=== PATIENT | female | born 1955 | race African-American/Black ===

== ENCOUNTER 2016-10-04 07:08 | Inpatient (IN) | payer BC ==
[2016-09-30 12:30] VITALS: BMI 43.5
--- NOTE | 2016-10-03 10:10 | HP ---
Satellite [facility] - Chief Complaint Chief Complaint: right knee pain - Past Medical History Allergies/Adverse Reactions: Allergies Allergy/AdvReac Type Severity Reaction Status Date / Time No Known Allergies Allergy Verified 09/30/16 12:22 - Current Medications Current Medications: Medication Instructions Recorded Valsartan [Diovan] 320 mg PO HS 04/17/12 Naproxen [Naprosyn -] 500 mg PO BID #20 tablet 08/24/16 [facility] Physical Exam - Physical Examination General Appearance: Well Nourished, Well Developed, Alert & Oriented x3 ENT: Clear Lung: Normal air movement Heart: Regular rate & rhythm Extremities: Other (right knee- + swelling, + ttp, decr rom, nvi xrays show severe tricompartmental djd) Neurological: Intact, Alert, Oriented Satellite Impression/Plan - Impression/Plan Impression: right knee djd Operative Procedure: right tkr Date to be Performed: 10/04/16
[2016-10-04] MEDS ORDERED: VANCOMYCIN 1,000 MG VIAL (RESTRICTED TO ID ONLY) ONE (07:11)
[2016-10-04] MEDS ORDERED: ceFAZolin SODIUM 1 GM VIAL ONE ×2 (07:11→08:34)
[2016-10-04] MEDS ORDERED: TRANEXAMIC ACID 1000 MG/10 ML VIAL IVPUSH ONE (07:28)
[2016-10-04] MEDS ORDERED: oxyCODONE HCL 10 MG SUSTAINED ACTING TABLET PO ONE (07:28)
[2016-10-04] MEDS ORDERED: GABAPENTIN 300 MG CAPSULE (FP) PO ONE (07:28)
[2016-10-04] MEDS ORDERED: CEFAZOLIN 2 GM in DEXTROSE 5%-WATER - 50 ML IVPB ONE (07:28)
[2016-10-04] MEDS ORDERED: CELECOXIB 200 MG CAPSULE PO ONE (07:28)
[2016-10-04] MEDS ORDERED: ROPIVACAINE HCL 0.5% 30ML VIAL ONE (08:16)
[2016-10-04] MEDS ORDERED: MIDAZOLAM HCL 2 MG/2 ML SINGLE DOSE VIAL ONE ×2 (08:16→12:03)
[2016-10-04] MEDS ORDERED: SODIUM CHLORIDE 0.9% P/F 10 ML VIAL IJ ONE (08:16)
[2016-10-04] MEDS ORDERED: DEXAMETHASONE SOD PHOSPHATE/PF 10 MG/ML SDV ONE (08:16)
[2016-10-04] MEDS ORDERED: LIDOCAINE 1% P/F 10 MG/ML VIAL ONE (08:18)
[2016-10-04] MEDS ORDERED: PROPOFOL 20 ML ONE ×3 (08:34)
[2016-10-04] MEDS ORDERED: BUPIVACAINE HCL/PF 0.5% (5MG/ML) 10 ML VIAL ONE (08:40)
[2016-10-04] MEDS ORDERED: ePHEDrine SULFATE 50 MG/1 ML AMPULE ONE (11:07)
[2016-10-04] MEDS ORDERED: ROPIVACAINE 0.2% 400ML 400 ML ML NR ONE (11:35)
[2016-10-04] MEDS ORDERED: PROMETHAZINE HCL 25 MG/1 ML VIAL IVPUSH PRN (11:35)
[2016-10-04] MEDS ORDERED: ONDANSETRON 4 MG/2 ML VIAL IVPUSH PRN (11:47)
[2016-10-04] MEDS ORDERED: ONDANSETRON 4 MG/2 ML VIAL ONE (12:03)
[2016-10-04] MEDS ORDERED: ONDANSETRON 4 MG/2 ML VIAL IVPB PRN (13:31)
[2016-10-04] MEDS ORDERED: MAG HYDROX/AL HYDROX/SIMETH 30 ML UNIT-DOSE CUP PO PRN (13:31)
[2016-10-04] MEDS ORDERED: MAGNESIUM HYDROX 2400MG/30ML ORAL SUSPENSION 30 ML CUP PO PRN (13:31)
--- NOTE | 2016-10-04 13:34 | OP ---
Operative Note - Note: Operative Date: 10/04/16 (mo) Pre-Operative Diagnosis: right knee djd Operation: right makoplsty tkr Post-Operative Diagnosis: Same as Pre-op Surgeon: Hay Bowman Assistant Analyst: Pantera Kapadia Anesthesiologist/MACHINE GREASER: Elizabeth Pena Anesthesia: Spinal, Local Specimens Removed: bone fragments Estimated Blood Loss (mls): 50 (tourniquet) Operative Report Dictated: Yes
[2016-10-04] MEDS ORDERED: LACTATED RINGERS SOLUTION 1,000 ML IV SCH (13:45)
[2016-10-04] MEDS: ACETAMINOPHEN 1000 MG/100 ML VIAL (NON FORMULARY) IVPB ONE ×2 (14:10→15:17)
[2016-10-04] MEDS: LACTATED RINGERS SOLUTION 1,000 ML IV SCH (15:17)
[2016-10-04] MEDS: oxyCODONE HCL 5 MG TABLET PO PRN ×2 (15:59→22:11)
[2016-10-04] MEDS: CEFAZOLIN 2 GM/D5W 50 ML IVPB SCH (18:14)
[2016-10-04] MEDS: GABAPENTIN 300 MG CAPSULE (FP) PO SCH (22:11)
[2016-10-04] MEDS: VALSARTAN 160 MG TABLET (UD) PO SCH (22:11)
[2016-10-04] MEDS: SENNOSIDES/DOCUSATE COMBO (SENNA PLUS) TABLET (UD) PO SCH (22:11)
[2016-10-04] MEDS: oxyCODONE HCL 10 MG SUSTAINED ACTING TABLET PO SCH (22:12)
[2016-10-05] MEDS: CEFAZOLIN 2 GM/D5W 50 ML IVPB SCH (03:19)
[2016-10-05] MEDS: oxyCODONE HCL 5 MG TABLET PO PRN ×3 (06:48→18:42)
--- NOTE | 2016-10-05 07:59 | PN ---
Progress Note (short form) - Note Progress Note: Ortho Pt seen and examined s/p right silvio tkr pod #1 Selected Entries 10/05/16 05:56 Temperature 98.6 F Pulse Rate 54 L Respiratory 18 Rate Blood Pressure 106/53 dressing c/d/i, calf soft, nt rom0-50, nvi cbc pending a/p PT dvt ppx pain control d/c home tomorrow if stable
--- NOTE | 2016-10-05 08:27 | OP ---
DATE OF OPERATION: 10/04/2016 PREOPERATIVE DIAGNOSIS: Degenerative joint disease, right knee. POSTOPERATIVE DIAGNOSIS: Degenerative joint disease, right knee. PROCEDURE: Right total knee replacement with robotic-assisted navigation (MAKOplasty). SURGICAL ATTENDING: aHy Bowman MD SUBSTATION ELECTRICIAN: MARCO Chatman ANESTHESIA: Spinal and regional. CLOSURE: A 3 femur, 4 tibia, an 11 TS insert, a 32 patella, No. 1 Vicryl, fascia, 0 and 2-0 for subcutaneous, and 3-0 Monocryl subcuticular with skin glue, 4-0 undyed Vicryl for pin sites. ESTIMATED BLOOD LOSS: Negligible. TOURNIQUET TIME: Approximately 90 minutes. COMPLICATIONS: None. CONDITION: To recovery room in stable condition. DESCRIPTION OF OPERATIVE PROCEDURE: Patient taken to the operating room on October 04, 2016. Spinal and regional anesthesia was administered by the anesthesiologist. IV Kefzol and TXA were administered prophylactically prior to the case. Right lower extremity was prepped and draped in the usual sterile fashion. Leg was exsanguinated with an Esmarch bandage. Tourniquet was inflated to 275 mmHg. A 12- to 15-cm longitudinal incision was made over the knee. Sharp dissection was carried down to the level of the extensor mechanism. Sufficient fluoroscopy utilized to perform the procedure. Medial parapatellar thigh arthrotomy was then performed. The patella was everted, and the knee was flexed up. Two pins were placed through stab incisions in the femur proximal to the incision and 2 distal to the incision in the tibia. To these pins, the arrays for the robot were applied. The knee was then registered with the navigation device with the center of rotation, medial and lateral , and multiple sites on both the femur and the tibia. The osteophytes were then removed circumferentially on the femur and the tibia. Then, tensioning was used in flexion and extension to optimize the virtual position of the components on the femur. The robot was then brought into the field and was registered. The robot was then used to cut the tibia at the appropriate level and then all the cuts on the femur. The box was then cut using the box machine operator for a No. 3 femur. Tensioning in flexion and extension revealed ideal tension with an 11-mm insert. The trial components were removed. The optimum external rotation of the tibial component was confirmed by using the green probe and the navigation device and was marked on the tibia. The keyhole and the central drill hole were then made on the tibia. Trial components were removed. The knee was thoroughly irrigated with antibiotic irrigation. The real components were then cemented in using the modern generation cement techniques and antibiotic cement. The knee was thoroughly inspected to remove all excess cement. After doing so, the TS implant was then clipped into place. Range of motion was from full flexion to full extension with excellent tracking of the patella throughout and good tensioning with varus/valgus stress throughout. The knee was thoroughly irrigated with antibiotic irrigation. Vancomycin powder was placed into the knee. The medial parapatellar arthrotomy was then closed using No. 1 Vicryl, 0 and 2-0 for subcutaneous, and 3-0 Monocryl subcuticular with skin glue, 4-0 undyed Vicryl for pin sites. Sterile pressure dressing of Aquasol variety was applied. The tourniquet was deflated. Total tourniquet time was approximately 90 minutes. No complications. Girma [id number]
[2016-10-05 08:32] LABS: MCH 30.2 pg (25.7-33.7); MEAN CELL VOLUME 91.5 fl (80-96); MEAN PLT VOLUME 8.9 fl (7.5-11.1); PLATELET COUNT 232 K/MM3 (134-434); RDW 13.9 % (11.6-15.6); WHITE BLOOD COUNT 10.4 K/mm3 (4.0-10.0)
[2016-10-05 08:45] LABS: CALCIUM 9.2 mg/dl (8.4-10.2); CREATININE 0.8 mg/dl (0.6-1.3)
[2016-10-05] MEDS: PANTOPRAZOLE 40 MG TABLET (FP) PO SCH (09:02)
[2016-10-05] MEDS: MULTIVITAMINS (DAILY MVI) TABLET (FP) PO SCH (09:03)
[2016-10-05] MEDS: GABAPENTIN 300 MG CAPSULE (FP) PO SCH ×2 (09:03→21:18)
[2016-10-05] MEDS: ASPIRIN 325 MG TABLET PO SCH (09:03)
[2016-10-05] MEDS: SENNOSIDES/DOCUSATE COMBO (SENNA PLUS) TABLET (UD) PO SCH ×2 (09:03→21:18)
[2016-10-05] MEDS: oxyCODONE HCL 10 MG SUSTAINED ACTING TABLET PO SCH ×2 (09:03→21:18)
--- NOTE | 2016-10-05 09:34 | PN ---
Progress Note (short form) - Note Progress Note: 61F POD1 s/p R TKR under spinal anesthetic with cont. adductor canal catheter doing well. Pt reports pain is well controlled, AVSS, reports no anesthetic complications. Sensory and motor function intact in both extremites, catheter site clean.
[2016-10-05 09:36] LABS: HIV 1 & 2 AB NEGATIVE; HIV 1 AGp24 NEGATIVE
[2016-10-05] MEDS: LACTATED RINGERS SOLUTION 1,000 ML IV SCH (13:40)
[2016-10-05] MEDS: VALSARTAN 160 MG TABLET (UD) PO SCH (21:18)
[2016-10-05] MEDS ORDERED: ACETAMINOPHEN 325 MG TABLET (FP) ONE (21:43)
[2016-10-06 05:41] VITALS: BP 114/50; PULSE 67; TEMP 99.4
[2016-10-06 07:50] LABS: MCH 29.5 pg (25.7-33.7); MCHC 32.7 g/dl (32.0-36.0); MEAN PLT VOLUME 8.4 fl (7.5-11.1); PLATELET COUNT 228 K/MM3 (134-434); WHITE BLOOD COUNT 12.1 K/mm3 (4.0-10.0)
--- NOTE | 2016-10-06 08:07 | PN ---
Progress Note (short form) - Note Progress Note: Ortho Pt seen and examined s/p right silvio tkr pod #2 Selected Entries 10/06/16 05:40 Temperature 99.4 F Pulse Rate 67 Respiratory 17 Rate Blood Pressure 114/50 Laboratory Tests 10/06/16 07:18 WBC 12.1 H Hgb 10.9 Hct 33.4 Plt Count 228 dressing c/d/i, calf soft, nt rom0-50, nvi cbc pending a/p PT dvt ppx pain control d/c home today f/u in 1 week
--- NOTE | 2016-10-06 08:08 | DS ---
Physical Examination Vital Signs: Vital Signs Temperature 99.4 F 10/06/16 05:40 Pulse Rate 67 10/06/16 05:40 Respiratory Rate 17 10/06/16 05:40 Blood Pressure 114/50 10/06/16 05:40 O2 Sat by Pulse Oximetry (%) 99 10/05/16 22:25 Labs: CBC, BMP 10/06/16 07:18 10/05/16 07:00 Discharge Summary Reason For Visit: RIGHT KNEE OSTEOARTHRITIS Procedures: Principal: s/p right silvio tkr Hospital Course: admitted for elective right silvio tkr, uneventful post-op, stable for d/c Condition: Good - Instructions Diet, Activity, Other Instructions: Post-op Instructions-Total Knee Replacement Call the office for a follow-up appointment in 1 week - [phone] Aspirin 325mg daily for 6 weeks. Pain medication was sent into your pharmacy. Apply Graduated Compression Stockings (TEDs) to both lower extremities- remove daily for hygiene ONLY Apply Sequential Compression Device (SCDs) to both Lower extremities remove for PT and hygiene ONLY Apply cold packs to affected area for 15 minutes every 2 hours. Physical Therapist will come to your home for the first 5 days. You will be set up with outpatient PT at your first post-operative visit. Patient may ambulate as tolerated-encourage self care (at least every 2-3 hours while awake) with walker or cane Maintain Aquacel (waterproof) dressing to operative wound (will be removed by surgeon at first office visit) Shower with Aquacel dressing in place-if Aquacel integrity compromised, remove and apply dry sterile dressing and notify Orthopedist. DO NOT SHOWER unless Orthopedists approves without Aquacel dressing CONTACT THE OFFICE FOR ANY CHANGE IN YOUR CONDITION (for example-fever greater than 102 degrees,excessive bleeding from operative site, purulent drainage, severe swelling or pain) GO TO THE EMERGENCY ROOM IF THERE IS A MEDICAL EMERGENCY Knee Precautions: * Keep a rolled towel under affected heel while in bed or chair (to keep knee in extension) * Keep affected leg elevated except during mealtimes * DO NOT PLACE PILLOW UNDER AFFECTED KNEE * If you have any questions, please do not hesitate to call the office - . Referrals: Hay Bowman MD [Staff Physician] - Disposition: VNS/HOME HEALTH CARE - Home Medications Comprehensive Discharge Medication List: Ambulatory Orders Valsartan [Diovan] 320 mg PO HS 04/17/12 Naproxen [Naprosyn -] 500 mg PO BID #20 tablet 08/24/16 Aspirin [ASA -] 325 mg PO DAILY@0800 tablet 10/04/16 Oxycodone HCl/Acetaminophen [Percocet 5-325 mg Tablet -] 1 - 2 tab PO Q6H #50 tab MDD 8 10/04/16
[2016-10-06] MEDS: ASPIRIN 325 MG TABLET PO SCH (08:14)
[2016-10-06] MEDS: oxyCODONE HCL 5 MG TABLET PO PRN (08:14)
[2016-10-06] MEDS: MULTIVITAMINS (DAILY MVI) TABLET (FP) PO SCH (09:18)
[2016-10-06] MEDS: PANTOPRAZOLE 40 MG TABLET (FP) PO SCH (09:18)
[2016-10-06] MEDS: GABAPENTIN 300 MG CAPSULE (FP) PO SCH (09:18)
[2016-10-06] MEDS: SENNOSIDES/DOCUSATE COMBO (SENNA PLUS) TABLET (UD) PO SCH (09:18)
[2016-10-06] MEDS: oxyCODONE HCL 10 MG SUSTAINED ACTING TABLET PO SCH (09:19)
--- NOTE | 2016-10-06 11:22 | PN ---
Progress Note (short form) - Note Progress Note: 61 F POD2 s/p R TKR under spinal anesthetic doing well. Pt states pain is well controlled with CACB, selective tibial and adjunctive medication. AVSS, pt reports no anesthetic complications. Cont. adductor canal catheter d/c'd, tip intact. Site clean and dry. Sensory and motor function intact in both lower extremities.
--- NOTE | 2016-10-06 12:15 | PATH ---
Surgical Pathology Report Patient Name: ISABELA COMER Med. Rec. #: [id number] /Age/Gender: 1955 (Age: 61) / F Account: [id number] Location: [facility] MED-SURG Taken: 10/04/2016 Received: 10/04/2016 Reported: 10/06/2016 Physicians: Hay Bowman M.D. Specimen(s) Received RIGHT KNEE BONES Clinical History Right knee osteoarthritis Final Diagnosis BONE AND SOFT TISSUE, RIGHT KNEE, REPLACEMENT: DEGENERATIVE JOINT DISEASE. Electronically Signed Jerrod Navarro M.D. Gross Description Received in formalin, labeled "right knee bones," is a 10.0 x 9.5 x 2.0 cm aggregate of escobedo, irregular portions of bone and soft tissue. The tibial plateau measures 7.2 x 5.3 x 1.5 cm. There is a 2.3 cm in greatest dimension area of eburnation present. The remaining articular surfaces are escobedo-yellow and diffusely granular. The underlying irregular bone is yellow and hard. Broker Associate sections are submitted in one cassette, following decalcification. 10/05/201610/05/2016
== END 2016-10-06 13:12 | disposition home health service (06) | DRG 470 ==
LOC: FM/S 07:08
PROVIDERS: ADMIT Orthopaedic Surgery; ATTEND Orthopaedic Surgery
PROC: 8E0Y0CZ Robotic Assisted Procedure of Lower Extremity, Open Approach (ICD-10-PCS; 2016-10-04)
PROC: 0SRC0J9 Replacement of Right Knee Joint with Synthetic Substitute, Cemented, Open Approach (ICD-10-PCS; principal; 2016-10-04 09:00)
DX: M17.11 Unilateral primary osteoarthritis, right knee (principal); I10 Essential (primary) hypertension
CPT/HCPCS: 36415; 73560-TC-RT; 80048; 85027; 86803; 87389; 88305-TC; 88311-TC; 94010; 94760; 97116-GP; 97162-PG

== ENCOUNTER 2016-11-19 19:10 | Emergency (ER) | payer BC ==
[2016-11-19 19:39] VITALS: BP 115/60; PULSE 75; TEMP 98.2; BMI 41.9
--- NOTE | 2016-11-19 20:24 | PDOC ---
History of Present Illness - General Chief Complaint: Pain Stated Complaint: BURNING SENSATION BOTH FEET/PAIN Time Seen by Provider: 11/19/16 19:51 History Source: Patient Exam Limitations: No Limitations - History of Present Illness Initial Comments: 11/19/16 20:07 61yo Female patient w/ PmHx: HTN and Left knee replacement presents to ED c/o bilateral foot burning sensation. Patient reports symptoms began a couple days after knee surgery approx. Oct 04. Patient has been going to physical therapy and made them aware but no actions taken per patient. She denies hx: DM, Peripheral neuropathy. Patient denies CP, Abd pain, Back pain, n/v/d, fever, cough, congestion, diff breathing, or any other complaints at this time. Severity: Yes: moderate Lower Extremity Pain Location: bilateral: foot Method of Injury: No: unknown, assault, burn, direct blow, fell, incised, motor vehicle accident, sports injury, twisted, other Modifying Factors: improves with: pain medication Lower Ext. Injury Location - Specific Injury Location Foot: bilateral foot no evidence of injury, bilateral foot normal inspection, bilateral foot normal range of motion, bilateral foot pain Extremity Pain Location - Extremity Pain Location Extremity Pain Locations: bilateral: foot Past History - Travel Traveled outside of the country in the last 30 days: No Close contact w/someone who was outside of country & ill: No - Past Medical History Allergies/Adverse Reactions: Allergies Allergy/AdvReac Type Severity Reaction Status Date / Time No Known Allergies Allergy Verified 11/19/16 19:34 Home Medications: Ambulatory Orders Valsartan [Diovan] 320 mg PO HS 04/17/12 Aspirin [ASA -] 325 mg PO DAILY@0800 tablet 10/04/16 Gabapentin 300 mg PO ASDIR #32 cap 11/20/16 Oxycodone HCl/Acetaminophen [Percocet 5-325 mg Tablet] 1 tab PO Q6H PRN #20 tablet MDD 4 TAB 11/20/16 Anemia: No Asthma: No Cancer: No Cardiac Disorders: No CVA: No COPD: No CHF: No Dementia: No Diabetes: No GI Disorders: No Disorders: No HTN: Yes Hypercholesterolemia: No Liver Disease: No Seizures: No Thyroid Disease: No - Surgical History Abdominal Surgery: No Appendectomy: No Cardiac Surgery: No Cholecystectomy: No Lung Surgery: No Neurologic Surgery: No - Immunization History Td Vaccination: No Immunization Up to Date: No - Psycho/Social/Smoking Cessation Hx Anxiety: No Suicidal Ideation: No Smoking Status: No Smoking History: Never smoked Have you smoked in the past 12 months: No Number of Cigarettes Smoked Daily: 0 Information on smoking cessation initiated: No Hx Alcohol Use: No Drug/Substance Use Hx: No Substance Use Type: None Hx Substance Use Treatment: No Review of Systems - Review of Systems Able to Perform ROS?: Yes Is the patient limited Romansh proficient: No Constitutional: No: Chills, Fever Integumentary: No: Erythema, Rash Neurological: Yes: Other (Burning Sensation) All Other Systems: Reviewed and Negative *Physical Exam - Vital Signs Last Vital Signs Temp Pulse Resp BP Pulse Ox 98.2 F 75 14 115/60 97 11/19/16 19:35 11/19/16 19:35 11/19/16 19:35 11/19/16 19:35 11/19/16 19:35 - Physical Exam General Appearance: Yes: Nourished, Appropriately Dressed. No: Apparent Distress, Mild Distress, Moderate Distress, Severe Distress Neck: positive: Trachea midline, Supple. negative: Lymphadenopathy (R), Lymphadenopathy (L) Respiratory/Chest: positive: Lungs Clear, Normal Breath Sounds. negative: Respiratory Distress, Accessory Muscle Use, Labored Respiration, Rapid RR Cardiovascular: positive: Regular Rhythm, Regular Rate. negative: Edema, JVD, Murmur Gastrointestinal/Abdominal: positive: Normal Bowel Sounds, Soft Musculoskeletal: positive: Normal Inspection. negative: CVA Tenderness Extremity: positive: Normal Capillary Refill, Normal Inspection, Normal Range of Motion Integumentary: positive: Normal Color, Dry, Warm. negative: Erythema, Petechiae , Rash, Swelling, Bruising Neurologic: positive: bathroom tiling professional II-XII NML intact, Fully Oriented, Alert, Normal Mood/ Affect, Normal Response, Motor Strength 5/5 ED Treatment Course - LABORATORY CBC & Chemistry Diagram: 11/19/16 21:15 - RADIOLOGY Radiology Studies Ordered: Category Date Time Status DUPLEX VASCUL US-1 LEG [US] Stat Ultrasound 11/19/16 20:04 Ordered *DC/Admit/Observation/Transfer Diagnosis at time of Disposition: Neuropathic pain of both feet - Discharge Dispostion Disposition: HOME Condition at time of disposition: Stable Admit: No - Prescriptions Prescriptions: Gabapentin 300 mg PO ASDIR #32 cap Oxycodone HCl/Acetaminophen [Percocet 5-325 mg Tablet] 1 tab PO Q6H PRN #20 tablet MDD 4 TAB PRN Reason: Severe Pain - Referrals Referrals: Magdalene Vela MD [Staff Physician] - - Patient Instructions Printed Discharge Instructions: Neuropathic Pain Additional Instructions: FOLLOW UP WITH DR. HIGHTOWER (NEUROLOGY) REGARDING TODAY'S VISIT. CALL TO SCHEDULE APPOINTMENT. TAKE MEDICATIONS PRESCRIBED. DO NOT DRIVE, DRINK ALCOHOL, OR OPERATE HEAVY MACHINERY WHILE TAKING PERCOCET. DRINK PLENTY OF WATER. Print Language: NEPALI
[2016-11-19 20:39] LABS: URINE APPEARANCE SLCLOUDY; URINE BILIRUBIN NEGATIVE (NEGATIVE); URINE BLOOD NEGATIVE (NEGATIVE); URINE COLOR YELLOW; URINE GLUCOSE (UA) NEGATIVE (NEGATIVE); URINE KETONE NEGATIVE (NEGATIVE); URINE NITRITE NEGATIVE (NEGATIVE); URINE PROTEIN NEGATIVE (NEGATIVE); URINE UROBILINOGEN NEGATIVE E.U./dl (0.2-1.0)
[2016-11-19 20:40] LABS: URINE LEUK ESTERASE TRACE (NEGATIVE)
[2016-11-19 20:42] LABS: URINE BACTERIA RARE /hpf (NONE SEEN); URINE MUCUS MODERATE; URINE RBC <1 /hpf (0-3); URINE WBC 2 /hpf (3-5)
[2016-11-19 20:42] LABS: INR 1.13 (0.82-1.09); PROTHROMBIN TIME (PATIENT) 12.5 SEC (9.98-11.88)
[2016-11-19 21:44] LABS: ALBUMIN 3.7 g/dl (3.4-5.0); ALK PHOS 113 U/L (45-117); ANION GAP 10 (8-16); BILIRUBIN,TOTAL 0.2 mg/dL (0.2-1.0); CALCIUM 9.5 mg/dL (8.5-10.1); CO2 29 mmol/L (21-32); CREATININE 0.8 mg/dL (0.55-1.02); GLUCOSE,RANDOM 136 mg/dL (74-106); SGPT/ALT 20 U/L (12-78); TOT PROT 7.7 g/dl (6.4-8.2)
[2016-11-19 21:45] LABS: SGOT/AST 15 U/L (15-37)
[2016-11-19 22:04] LABS: PHOSPHOROUS 3.1 mg/dL (2.5-4.9)
[2016-11-19 22:11] LABS: THYROID STIMULATING HORMONE 0.83 uIU/ml (0.358-3.74)
[2016-11-19 22:12] LABS: MAGNESIUM 2.1 mg/dL (1.8-2.4)
[2016-11-19] MEDS ORDERED: GABAPENTIN 300 MG CAPSULE (FP) PO ONE (23:06)
[2016-11-19] MEDS ORDERED: GABAPENTIN 100 MG CAPSULE (FP) ONE (23:21)
== END 2016-11-20 00:28 | disposition home or self-care (01) ==
LOC: JER 19:10
DX: G62.89 Other specified polyneuropathies (principal); I10 Essential (primary) hypertension
CPT/HCPCS: 36415; 80053; 81003; 81015; 83735; 83880; 84100; 84443; 85610; 85651; 87086; 93971-TC; 99282-25

== ENCOUNTER 2018-02-23 17:37 | Emergency (ER) | payer BC ==
--- NOTE | 2018-02-23 17:40 | PDOC ---
Rapid Medical Evaluation Time Seen by Provider: 02/23/18 17:38 Medical Evaluation: Allergies Allergy/AdvReac Type Severity Reaction Status Date / Time No Known Allergies Allergy Verified 11/19/16 19:34 02/23/18 17:38 I have performed a brief in-person evaluation of this patient. The patient presents with a chief complaint of: abdominal wall pain Pertinent physical exam findings: RLQ abdominal wall abscess I have ordered the following: labs The patient will proceed to the ED for further evaluation. Discharge Disposition - Diagnosis Abscess - Referrals - Patient Instructions - Post Discharge Activity
[2018-02-23 17:46] VITALS: TEMP 98.9; BMI 43.5
--- NOTE | 2018-02-23 18:18 | PDOC ---
History of Present Illness - General Chief Complaint: Abscess Boil Stated Complaint: CYST Time Seen by Provider: 02/23/18 17:38 - History of Present Illness Initial Comments: 02/23/18 18:16 62 yo F with h/o HTN and arthritis who p/w with RLQ skin redness and pain. Patient reports acute onset of progressive/worsening, RLQ skin swelling, warmth , and tenderness x 3 weeks. Reports draining of skin site x 1 week, with scant yellow discharge. Last PO intake/meal at 15:00. Reports h/o left sided chest mastitis. Chronic leg swelling. Patient with scheduled PMD Apt. 03/06. Denies F/C, N/V, diaphoresis, night sweats, CP, SOB, abdominal pain, diarrhea, constipation, urinary complaints, weakness, lightheadedness, sensory changes. PMHx: as noted above. Denies h/o abdominal surgery. Denies h/o DM. ROS: as noted above SHx: Denies Etoh, IVDA, tobacco use. Allergies: NKDA PMD. Dr. Mckeon Past History - Past Medical History Allergies/Adverse Reactions: Allergies Allergy/AdvReac Type Severity Reaction Status Date / Time No Known Allergies Allergy Verified 02/23/18 17:39 Home Medications: Ambulatory Orders Valsartan [Diovan] 320 mg PO HS 04/17/12 Cephalexin [Keflex] 500 mg PO QID 7 Days #28 capsule MDD 4 tab 02/23/18 Sulfamethoxazole/Trimethoprim [Bactrim Ds -] 1 tab PO BID #14 tablet MDD 2 tab 02/23/18 Anemia: No Asthma: No Cancer: No Cardiac Disorders: No CVA: No COPD: No CHF: No Dementia: No Diabetes: No GI Disorders: No Disorders: No HTN: Yes Hypercholesterolemia: No Liver Disease: No Seizures: No Thyroid Disease: No Other medical history: ARTHIRIS - Surgical History Abdominal Surgery: No Appendectomy: No Cardiac Surgery: No Cholecystectomy: No Lung Surgery: No Neurologic Surgery: No - Immunization History Td Vaccination: No Immunization Up to Date: No - Suicide/Smoking/Psychosocial Hx Smoking Status: No Smoking History: Never smoked Have you smoked in the past 12 months: No Number of Cigarettes Smoked Daily: 0 Information on smoking cessation initiated: No Hx Alcohol Use: No Drug/Substance Use Hx: No Substance Use Type: None Hx Substance Use Treatment: No Review of Systems - Review of Systems Comments:: 02/23/18 18:17 GENERAL/CONSTITUTIONAL: No fever or chills. No weakness. HEAD, EYES, EARS, NOSE AND THROAT: No change in vision. No ear pain or discharge. No sore throat. CARDIOVASCULAR: No chest pain or shortness of breath RESPIRATORY: No cough, wheezing, or hemoptysis. GASTROINTESTINAL: No nausea, vomiting, diarrhea or constipation. GENITOURINARY: No dysuria, frequency, or change in urination. MUSCULOSKELETAL: No joint or muscle swelling or pain. No neck or back pain. SKIN:+ RLQ redness, warmth. NEUROLOGIC: No headache, vertigo, loss of consciousness, or change in strength/ sensation. ENDOCRINE: No increased thirst. No abnormal weight change HEMATOLOGIC/LYMPHATIC: No anemia, easy bleeding, or history of blood clots. ALLERGIC/IMMUNOLOGIC: No hives or skin allergy. *Physical Exam - Vital Signs Last Vital Signs Temp Pulse Resp BP Pulse Ox 98.9 F 84 18 121/57 94 L 02/23/18 17:40 02/23/18 17:40 02/23/18 17:40 02/23/18 17:40 02/23/18 17:40 - Physical Exam Comments: 02/23/18 18:17 GENERAL: Awake, alert, and fully oriented, in no acute distress HEAD: No signs of trauma, normocephalic, atraumatic EYES: PERRLA, EOMI, sclera anicteric, conjunctiva clear ENT: Hearing grossly normal, nares patent, oropharynx clear without exudates. Moist mucosa NECK: Normal ROM, supple, no lymphadenopathy, JVD, or masses LUNGS: No distress, speaks full sentences, clear to auscultation bilaterally HEART: Regular rate and rhythm, normal S1 and S2, no murmurs, rubs or gallops, peripheral pulses normal and equal bilaterally. ABDOMEN: Soft, nontender, normoactive bowel sounds. No guarding, no rebound. No masses. Neg CVA ttp. EXTREMITIES : Normal inspection, Normal range of motion, no edema. No clubbing or cyanosis. SKIN: + 12 x 3 cm area of RLQ abdominal erythema, warmth, and ttp, with central area of firm, induration, with non draining central punctum. Absent inguinal lymphadenopathy, or streaking. Remainder of skin is warm, Dry, normal turgor, no rashes or lesions noted ED Treatment Course - LABORATORY CBC & Chemistry Diagram: 02/23/18 17:57 02/23/18 17:57 Medical Decision Making - Medical Decision Making 02/23/18 18:32 62 yo F with h/o HTN and arthritis who p/w with RLQ skin redness and pain. VSS, AF. Physical exam notable for + 12 x 3 cm area of RLQ abdominal erythema, warmth , and ttp, with central area of non fluctuant, firm, induration, with non draining central punctum. Most likely cellulitis of lower abdomen. No evidence of lymphangitic spread. Patient non toxic, with absent systemic signs or symptoms of infection, skin sloughing, and 0/4 SIRS criteria. Low suspicion deep space infection. Patient not previously on antibiotics. ED Course: CBC, CMP: Unremarkable 02/23/18 20:16 Keflex, and Bactrim sent to pharmacy. Keflex 500 mg, and Bactrim given in ED. Patient advised on medication and need to f/u with PMD. 02/23/18 21:23 Minimal discharge drained from abdomen at bedside. Patient stable with no complaints. Patient stable for d/c with return precautions. *DC/Admit/Observation/Transfer Diagnosis at time of Disposition: Cellulitis Qualifiers: Site of cellulitis: trunk Site of cellulitis of trunk: abdominal wall Qualified Code(s): L03.311 - Cellulitis of abdominal wall - Discharge Dispostion Condition at time of disposition: Stable Decision to Admit order: No - Prescriptions Prescriptions: Cephalexin [Keflex] 500 mg PO QID 7 Days #28 capsule MDD 4 tab Sulfamethoxazole/Trimethoprim [Bactrim Ds -] 1 tab PO BID #14 tablet MDD 2 tab - Referrals Referrals: Miguel Jama MD [Primary Care Provider] - - Patient Instructions Printed Discharge Instructions: DI for Cellulitis -- Adult Additional Instructions: Please return to the emergency department with any new or worsening symptoms or concerns. Please follow up with your primary care physician within 72 hours. Please take Keflex four times a day for 7 days, and please take Bactrim 2 times a day for 7 days. - Post Discharge Activity - Attestations Physician Attestion: 02/23/18 18:17 I attest to the information provided in this note.
[2018-02-23 18:29] LABS: BASO % 0.7 % (0-2.0); EOS % 0.7 % (0-4.5); HEMATOCRIT 35.4 % (32.4-45.2); HEMOGLOBIN 11.6 GM/dL (10.7-15.3); MCH 29.8 pg (25.7-33.7); MCHC 32.8 g/dl (32.0-36.0); MEAN CELL VOLUME 90.8 fl (80-96); MEAN PLT VOLUME 8.9 fl (7.5-11.1); NEUT % 76.6 % (42.8-82.8); PLATELET COUNT 288 K/MM3 (134-434); RBC 3.89 M/mm3 (3.60-5.2); RDW 14.4 % (11.6-15.6)
[2018-02-23 18:52] LABS: INR 1.2 (0.82-1.09); PROTHROMBIN TIME (PATIENT) 13.6 SEC (9.7-13.0)
[2018-02-23 18:59] LABS: BLOOD UREA NITROGEN 25 mg/dL (7-18); CHLORIDE 100 mmol/L (98-107); CO2 30 mmol/L (21-32); CREATININE 1.1 mg/dL (0.55-1.02); GLUCOSE,RANDOM 116 mg/dL (74-106); SODIUM 137 mmol/L (136-145)
[2018-02-23 19:00] LABS: ANION GAP 7 (8-16); CALCIUM 8.7 mg/dL (8.5-10.1); SGPT/ALT 49 U/L (12-78)
[2018-02-23 19:01] LABS: ALK PHOS 76 U/L (45-117); BILIRUBIN,TOTAL 0.4 mg/dL (0.2-1.0); TOT PROT 7.2 g/dl (6.4-8.2)
[2018-02-23 19:02] LABS: POTASSIUM 4.4 mmol/L (3.5-5.1); SGOT/AST 41 U/L (15-37)
[2018-02-23] MEDS ORDERED: CEPHALEXIN MONOHYDRATE 500 MG CAPSULE (UD) PO ONE (20:14)
[2018-02-23] MEDS ORDERED: SULFAMETHOXAZOLE/TRIMETHOPRIM 800MG/160MG D.S. TABLET PO ONE (20:14)
[2018-02-23] MEDS ORDERED: SULFAMETHOXAZOLE/TRIMETHOPRIM 800MG/160MG D.S. TABLET ONE (20:24)
[2018-02-23] MEDS ORDERED: CEPHALEXIN MONOHYDRATE 500 MG CAPSULE (UD) ONE (20:24)
--- NOTE | 2018-02-23 21:06 | PDOC ---
Attending Attestation - Resident Resident Name: Deonte Galeas - ED Attending Attestation I have performed the following: I have examined & evaluated the patient, The case was reviewed & discussed with the resident, I agree w/resident's findings & plan, Exceptions are as noted - Medical Decision Making 02/23/18 21:05 62yoF no hx of DM presnets /w RLQ abd cellulitis progresive x week. + slight drainage, expression completed, <0.5mL. - wound culture sent - labs reviewed and significant for slight elevated WBC - OK for DC on keflex/bactrim <Diana Howard - Last Filed: 02/23/18 21:04> - HPI HPI: 02/23/18 22:40 The patient is a 62 year old female with a significant PMH of hypertension, arthritis and left knee replacement who presents to the emergency department with acute worsening right lower quadrant skin abscess and pain for 3 weeks. The patient reports associated warmth and tenderness to abscess site. The patient states that she has been experiencing site drainage for 1 week with yellow discharge. The patient reports that her last meal intake was 7 hours ago. The patient reports a history of left sided chest mastitis and chronic leg swelling. She states that she has an upcoming appointment with her Primary doctor in 2 weeks. She denies any other symptoms. She martin chest pain, shortness of breath, headache and dizziness. She denies fever, chills, nausea, vomit, diarrhea, constipation or urinary symptoms. She denies diaphoresis, night sweats,weakness, lightheadedness, or sensory changes. The patient denies any other complaints. PMD. Dr. Mckeon - Physicial Exam PE: 02/23/18 22:41 As per resident note. Documentation prepared by Yoel Rowley, acting as medical billing instructor for Diana Howard MD. <Yoel Rowley - Last Filed: 02/23/18 22:41>
[2018-02-23 21:15] VITALS: BP 142/62; PULSE 77
== END 2018-02-23 21:38 | disposition home or self-care (01) ==
LOC: JER 17:37
DX: L03.311 Cellulitis of abdominal wall (principal); B95.62 Methicillin resistant Staphylococcus aureus infection as the cause of diseases classified elsewhere; R60.0 Localized edema
CPT/HCPCS: 36415; 80053; 85025; 85610; 86850; 86900; 86901; 87040; 87070; 87186; 87205; 99283-25

== ENCOUNTER 2018-06-25 15:27 | Inpatient (IN) | payer BC ==
--- NOTE | 2018-06-25 15:34 | PDOC ---
Rapid Medical Evaluation Chief Complaint: Pain Time Seen by Provider: 06/25/18 15:31 Medical Evaluation: Allergies Allergy/AdvReac Type Severity Reaction Status Date / Time No Known Allergies Allergy Verified 02/23/18 17:39 06/25/18 15:31 I have performed a brief in person evaluation of this patient. The patient presents with a chief complaint of: 2nd digit left hand erythema. Pt is a 62 YO female who states she has had erythema and edema to 2nd digit left hand x 2-3 days. She denies hx of DM, denies fever. Pertinent PE: Skin: Pt has moderate erythema and edema to the second digit left hand. Lungs: Clear Heart: RRR Abd: Nontender MS: Moves all extremities without difficulty. Neuro: Alert and oriented Psych: Appropriate affect I have ordered the following: Labs, BC and xray The patient will proceed to: pt will go to the main ED for further evaluation. Discharge Disposition - Diagnosis Cellulitis Qualifiers: Site of cellulitis: extremity Site of cellulitis of extremity: upper extremity Laterality: left Qualified Code(s): L03.114 - Cellulitis of left upper limb - Referrals - Patient Instructions - Post Discharge Activity
--- NOTE | 2018-06-25 20:51 | PDOC ---
History of Present Illness - General Chief Complaint: Pain Stated Complaint: SWOLLEN FINGER/INFECTION Time Seen by Provider: 06/25/18 15:31 History Source: Patient - History of Present Illness Initial Comments: 06/25/18 21:41 62 year old female reports a pustule to left index finger for the last 5 days progressively getting worse with increased swelling, redness and pain to the proximal aspect of left index finger. reports chills x 2 days. PMHX; hypertension. PMD: Marcelo Past History - Past Medical History Allergies/Adverse Reactions: Allergies Allergy/AdvReac Type Severity Reaction Status Date / Time No Known Allergies Allergy Verified 06/25/18 15:31 Home Medications: Ambulatory Orders Valsartan [Diovan] 320 mg PO HS 04/17/12 Cephalexin [Keflex] 500 mg PO QID 7 Days #28 capsule MDD 4 tab 02/23/18 Sulfamethoxazole/Trimethoprim [Bactrim Ds -] 1 tab PO BID #14 tablet MDD 2 tab 02/23/18 Anemia: No Asthma: No Cancer: No Cardiac Disorders: No CVA: No COPD: No CHF: No Dementia: No Diabetes: No GI Disorders: No Disorders: No HTN: Yes Hypercholesterolemia: No Liver Disease: No Seizures: No Thyroid Disease: No - Surgical History Abdominal Surgery: No Appendectomy: No Cardiac Surgery: No Cholecystectomy: No Lung Surgery: No Neurologic Surgery: No - Immunization History Td Vaccination: No Immunization Up to Date: No - Suicide/Smoking/Psychosocial Hx Smoking Status: No Smoking History: Never smoked Have you smoked in the past 12 months: No Number of Cigarettes Smoked Daily: 0 Information on smoking cessation initiated: No Hx Alcohol Use: No Drug/Substance Use Hx: No Substance Use Type: None Hx Substance Use Treatment: No *Physical Exam - Vital Signs Last Vital Signs Temp Pulse Resp BP Pulse Ox 100.0 F H 84 18 143/56 L 100 06/25/18 15:31 06/25/18 15:31 06/25/18 15:31 06/25/18 15:31 06/25/18 15:31 - Physical Exam General Appearance: Yes: Appropriately Dressed Integumentary: positive: Other (left index finger swelling , pus drainage and surrounding cellultis ) Neurologic: positive: Fully Oriented, Alert, Normal Mood/Affect Procedures - Incision and Drainage I&D Site: Left: Other (finger abscess) Betadine cleansed: Yes Anesthesia: 1% Lidocaine Blade Size: 11 Plain Packing: No Complications: none Dressing: Yes Progress: 06/25/18 22:19 2-3 ml pus drainage from anterior aspect of left index finger surround swelling and cellulitis/ ED Treatment Course - LABORATORY CBC & Chemistry Diagram: 06/25/18 20:54 06/25/18 20:54 Medical Decision Making - Medical Decision Making 06/25/18 23:14 A; cellulitis and abscess P: labs blood culture UA IVF IV antiobiotics lactic *DC/Admit/Observation/Transfer Diagnosis at time of Disposition: Cellulitis and abscess of finger, unspecified, Lactic acidosis Cellulitis Qualifiers: Site of cellulitis: extremity Site of cellulitis of extremity: upper extremity Laterality: left Qualified Code(s): L03.114 - Cellulitis of left upper limb - Discharge Dispostion Decision to Admit order: Yes - Referrals Referrals: Miguel Jama MD [Primary Care Provider] - - Patient Instructions - Post Discharge Activity
[2018-06-25 21:32] LABS: BASO % 0.5 % (0-2.0); EOS % 0.5 % (0-4.5); HEMATOCRIT 37.4 % (32.4-45.2); HEMOGLOBIN 12.2 GM/dL (10.7-15.3); LYMPH % 11.5 % (8-40); MCH 29.5 pg (25.7-33.7); MCHC 32.5 g/dl (32.0-36.0); MEAN CELL VOLUME 90.8 fl (80-96); MEAN PLT VOLUME 8.7 fl (7.5-11.1); MONO % 7.4 % (3.8-10.2); NEUT % 80.1 % (42.8-82.8); PLATELET COUNT 317 K/MM3 (134-434); RBC 4.12 M/mm3 (3.60-5.2); RDW 14.1 % (11.6-15.6); WHITE BLOOD COUNT 13.6 K/mm3 (4.0-10.0)
[2018-06-25] MEDS ORDERED: VANCOMYCIN 1 GRAM (PRE-DOCKED) 1,000 MG/250 ML BAG IVPB ONE ×2 (21:38→21:59)
[2018-06-25] MEDS ORDERED: PIPERACILLIN/TAZOB 4.5 GM 4.5 GM in DEXTROSE 5%-WATER 100 ML IVPB ONE (21:38)
[2018-06-25 21:58] LABS: ALK PHOS 82 U/L (45-117); ANION GAP 10 MMOL/L (8-16); BILIRUBIN,TOTAL 0.5 mg/dL (0.2-1); BLOOD UREA NITROGEN 12 mg/dL (7-18); CALCIUM 9.2 mg/dL (8.5-10.1); CHLORIDE 100 mmol/L (98-107); CO2 28 mmol/L (21-32); CREATININE 0.8 mg/dL (0.55-1.3); GLUCOSE,RANDOM 203 mg/dL (74-106); POTASSIUM 4.3 mmol/L (3.5-5.1); SGOT/AST 20 U/L (15-37); SGPT/ALT 26 U/L (13-61); SODIUM 138 mmol/L (136-145); TOT PROT 6.8 g/dl (6.4-8.2)
[2018-06-25] MEDS ORDERED: PIPERACILLIN/TAZOB 4.5 GM 4.5 GM/100 ML BAG IVPB ONE (21:59)
[2018-06-25] MEDS ORDERED: SODIUM CHLORIDE 1,000 ML IV STA (22:06)
[2018-06-25] MEDS ORDERED: ACETAMINOPHEN 325 MG TABLET (FP) PO ONE (22:11)
[2018-06-25] MEDS ORDERED: KETOROLAC TROMETHAMINE 30 MG/1 ML VIAL IVPUSH ONE (22:11)
[2018-06-25] MEDS ORDERED: KETOROLAC TROMETHAMINE 30 MG/1 ML VIAL ONE (22:13)
[2018-06-25 22:33] LABS: URINE APPEARANCE CLOUDY; URINE BILIRUBIN NEGATIVE (<2.0 mg/dL); URINE COLOR AMBER; URINE GLUCOSE (UA) 1+ (NEGATIVE); URINE KETONE TRACE (NEGATIVE); URINE LEUK ESTERASE TRACE (NEGATIVE); URINE NITRITE NEGATIVE (NEGATIVE); URINE PROTEIN 1+ (NEGATIVE); URINE UROBILINOGEN 4.0 E.U/dl mg/dL (0.2-1.0)
[2018-06-25 23:04] LABS: EPI CELLS MODERATE /HPF (FEW); URINE BACTERIA MANY /hpf (NONE SEEN); URINE MUCUS MANY
--- NOTE | 2018-06-26 00:07 | PN ---
Teaching Attending Note Name of Resident: Kendra Meng ATTENDING PHYSICIAN STATEMENT I saw and evaluated the patient. I reviewed the resident's note and discussed the case with the resident. I agree with the resident's findings and plan as documented. SUBJECTIVE: Patient is a 62 year old woman with PMH of HTN, MRSA infection of abdominal wall abscess, arthritis and left knee replacement who presents with a pustule on left index finger for the last 5 days progressively getting worse with increased swelling, redness and pain. Reports chills for 2 days. Denies nausea, vomiting, SOB or headache. Had I&D in the ER with 2-3 ml pus drainage from anterior aspect of left index finger. OBJECTIVE: Alert Vital Signs Period Temp Pulse Resp BP Sys/Multani Pulse Ox Last 24 Hr 99.0 F-100.0 F 84 18 143/56 100 HEENT: No Jaundice, eye redness or discharge, PERRLA, EOMI. Normocephalic, atraumatic. External ears are normal and hearing is grossly intact. No nasal discharge. Neck: Supple, nontender. No palpable adenopathy or thyromegaly. No JVD Chest: Good effort. Clear to auscultation and percussion. Heart: Regular. No S3, rub or murmur Abdomen: Not distended, soft, nontender and no HSM. No rebound or guarding. Normoactive bowel sounds. Ext: Peripheral pulses intact. No leg edema. Abscess on anterior aspect of left index finger surround swelling and cellulitis. Skin: Warm and dry. No petechiae, rash or ecchymosis. Neuro: Alert. Oriented x3. CN 2-12 grossly intact. Sensation grossly intact in all four extremities and DTR are symmetric. Home Medications Medication Instructions Recorded Valsartan [Diovan] 320 mg PO HS 04/17/12 Cephalexin [Keflex] 500 mg PO QID 7 Days #28 capsule 02/23/18 MDD 4 tab Sulfamethoxazole/Trimethoprim 1 tab PO BID #14 tablet MDD 2 tab 02/23/18 [Bactrim Ds -] Abnormal Lab Results 06/25/18 06/25/18 06/25/18 20:54 20:54 20:54 WBC 13.6 H Absolute Neuts (auto) 10.9 H Random Glucose 203 H Lactic Acid 2.6 H* Albumin 3.0 L Urine Protein Urine Glucose (UA) Urine Ketones Urine Urobilinogen 06/25/18 20:54 WBC Absolute Neuts (auto) Random Glucose Lactic Acid Albumin Urine Protein 1+ H Urine Glucose (UA) 1+ H Urine Ketones Trace H Urine Urobilinogen 4.0 e.u/dl H ASSESSMENT AND PLAN: 1. Sepsis due to finger abscess and cellulitis - Treat with IV Vancomycin 1 gm q 12 hours pending culture report. Continue wound care and consult ID. Has pyuria but no symptoms of UTI. Continue IV NS and trend lactic acid. Plastic surgery consult. 2. Hypoalbuminemia - Possibly due to combined effects of malnutrition, proteinuria and inflammation associated with infection. Will ensure adequate dietary protein intake and also consult radio performer. 3. Obesity - Will provide patient all the necessary assistance , counseling and positive reinforcement to facilitate weight loss. Consult radio performer. 4. DVT prophylaxis - Lovenox 40 mg SQ q 12 hours. 5. Advance directives - Full code
--- NOTE | 2018-06-26 00:42 | PDOC ---
*Physical Exam - Vital Signs Last Vital Signs Temp Pulse Resp BP Pulse Ox 99.0 F 84 18 143/56 L 100 06/25/18 21:43 06/25/18 15:31 06/25/18 15:31 06/25/18 15:31 06/25/18 15:31 ED Treatment Course - LABORATORY CBC & Chemistry Diagram: 06/25/18 20:54 06/25/18 20:54 - ADDITIONAL ORDERS Additional order review: Laboratory Results 06/25/18 06/25/18 06/25/18 20:54 20:54 20:54 Sodium 138 Potassium 4.3 Chloride 100 Carbon Dioxide 28 Anion Gap 10 BUN 12 Creatinine 0.8 Creat Clearance w eGFR > 60 Random Glucose 203 H Lactic Acid 2.6 H* Calcium 9.2 Total Bilirubin 0.5 AST 20 ALT 26 Alkaline Phosphatase 82 Total Protein 6.8 Albumin 3.0 L Urine Color Kath Urine Appearance Cloudy Urine pH 5.0 Ur Specific [place] 1.029 Urine Protein 1+ H Urine Glucose (UA) 1+ H Urine Ketones Trace H Urine Blood Negative Urine Nitrite Negative Urine Bilirubin Negative Urine Urobilinogen 4.0 e.u/dl H Ur Leukocyte Esterase Trace Urine WBC (Auto) 14 Urine RBC (Auto) 1 Ur Epithelial Cells Moderate Urine Bacteria Many Urine Mucus Many 06/25/18 20:54 RBC 4.12 MCV 90.8 MCHC 32.5 RDW 14.1 MPV 8.7 Neutrophils % 80.1 Lymphocytes % 11.5 Monocytes % 7.4 Eosinophils % 0.5 Basophils % 0.5 - Medications Given in the ED: ED Medications Discontinued Medications Generic Name Dose Route Start Last Admin Trade Name Trina PRN Reason Stop Dose Admin Acetaminophen 650 mg 06/25/18 22:11 06/25/18 22:59 Tylenol - PO 06/25/18 22:12 650 mg ONCE ONE Administration Piperacillin Sod/Tazobactam 100 mls @ 200 mls/hr 06/25/18 21:38 06/25/18 22: 11 Sod 4.5 gm/ Dextrose IVPB 06/25/18 22:07 200 mls/hr ONCE ONE Administration Protocol Sodium Chloride 1,000 mls @ 1,000 mls/hr 06/25/18 22:06 06/25/18 22:11 Normal Saline - IV 06/25/18 23:05 1,000 mls/hr ASDIR STA Administration Ketorolac Tromethamine 30 mg 06/25/18 22:11 06/25/18 22:12 Toradol Injection - IVPUSH 06/25/18 22:12 30 mg ONCE ONE Administration Vancomycin HCl 1,000 mg 06/25/18 21:38 06/25/18 23:00 Vancomycin (Pre-Docked) IVPB 06/25/18 21:39 1,000 mg ONCE ONE Administration Protocol Medical Decision Making - Medical Decision Making 06/26/18 00:42 Patient with infection, cellulitis/abscess of L digit exam as documented in general medical note from this visit pt s/p I and D will admit for further care including IV abx *DC/Admit/Observation/Transfer Diagnosis at time of Disposition: Cellulitis and abscess of finger, unspecified, Lactic acidosis Cellulitis Qualifiers: Site of cellulitis: extremity Site of cellulitis of extremity: upper extremity Laterality: left Qualified Code(s): L03.114 - Cellulitis of left upper limb - Referrals Referrals: Miguel Jama MD [Primary Care Provider] - - Patient Instructions - Post Discharge Activity
--- NOTE | 2018-06-26 03:31 | HP ---
CHIEF COMPLAINT: non=healing ulcer on L hand, 2nd finger PCP: Dr. Jama HISTORY OF PRESENT ILLNESS: 62F w/ pmhx of HTN was sent to the ED by her PCP for a nonhealing ulcer on her L hand, 2nd digit. Pt states she first noticed this wound last , but has no idea how she got it. She denies trauma to the area. Since , she states she had not taken anything for it and treated the wound with dressings. She denies fever/chills, faith/d, n/v, sob, chest pain, abd pain, urinary/bowel symptoms, blood in urine/stool, peripheral edema, problems walking. Of note she was recently treated for an abdominal abscess back in 02/2018 with wound cx that was +MRSA. ER course was notable for: (1) WBC 13.6, U/A showed 1+ Pro, 1+ Glu, Trace Ket, 4 Urobilinogen, Trace LE, WBC 14, many brittney/mucus, lac 2.6 (2) Vanc 1 gm, Zosyn 4.5 gm, NS 1000mL, Toradol 30 mg IVP, Tylenol 650 mg PO given (3) Recent Travel: Denies PAST MEDICAL HISTORY: HTN PAST SURGICAL HISTORY: R knee surgery Social History: Smoking: Denies Alcohol: Denies Drugs: Denies Family History: Mother: HTN, DM Father: HTN, DM Allergies No Known Allergies Allergy (Verified 06/25/18 15:31) HOME MEDICATIONS: Home Medications Medication Instructions Recorded Valsartan [Diovan] 320 mg PO HS 04/17/12 Cephalexin [Keflex] 500 mg PO QID 7 Days #28 capsule 02/23/18 MDD 4 tab Sulfamethoxazole/Trimethoprim 1 tab PO BID #14 tablet MDD 2 tab 02/23/18 [Bactrim Ds -] REVIEW OF SYSTEMS As per HPI PHYSICAL EXAMINATION Vital Signs - 24 hr 06/25/18 06/25/18 06/26/18 15:31 21:43 03:04 Temperature 100.0 F H 99.0 F 98.9 F Pulse Rate 84 Pulse Rate [ 82 Left Apical] Respiratory 18 18 Rate Blood Pressure 143/56 L Blood Pressure 130/77 [Right Arm] O2 Sat by Pulse 100 99 Oximetry (%) GENERAL: AAOx3. NAD. Resting comfortably. HEENT: AT/NC. EOMI. JIM. Moist mucus membranes. NECK: Supple, no LAD/JVD. LUNGS: CTA B/L. No w/r/r noted. Symmetric chest rise. No accessory muscle use. HEART: RRR. Normal S1, S2. No murmurs noted. ABDOMEN: Obese. Soft, ND/NT +BS in all 4 Q's. No masses or bruits noted. MUSCULOSKELETAL: 1+ R pedal edema, 2+ L pedal edema. 5/5 muscle strength in b/l u/l extremities. NEUROLOGICAL: Normal speech. CN II-XII intact. Facial symmetry noted. PSYCHIATRIC: Cooperative. Good eye contact. Appropriate mood and affect. SKIN: 2 cm ulcerating lesion on proximal portion of 2nd digit on L hand, purulent drainage. Laboratory Results - last 24 hr 06/25/18 06/25/18 06/25/18 20:54 20:54 20:54 WBC 13.6 H RBC 4.12 Hgb 12.2 Hct 37.4 MCV 90.8 MCH 29.5 MCHC 32.5 RDW 14.1 Plt Count 317 MPV 8.7 Absolute Neuts (auto) 10.9 H Neutrophils % 80.1 Lymphocytes % 11.5 Monocytes % 7.4 Eosinophils % 0.5 Basophils % 0.5 Nucleated RBC % 0 Sodium 138 Potassium 4.3 Chloride 100 Carbon Dioxide 28 Anion Gap 10 BUN 12 Creatinine 0.8 Creat Clearance w eGFR > 60 Random Glucose 203 H Lactic Acid 2.6 H* Calcium 9.2 Total Bilirubin 0.5 AST 20 ALT 26 Alkaline Phosphatase 82 Troponin I < 0.02 Total Protein 6.8 Albumin 3.0 L Urine Color Urine Appearance Urine pH Ur Specific [place] Urine Protein Urine Glucose (UA) Urine Ketones Urine Blood Urine Nitrite Urine Bilirubin Urine Urobilinogen Ur Leukocyte Esterase Urine WBC (Auto) Urine RBC (Auto) Ur Epithelial Cells Urine Bacteria Urine Mucus 06/25/18 20:54 WBC RBC Hgb Hct MCV MCH MCHC RDW Plt Count MPV Absolute Neuts (auto) Neutrophils % Lymphocytes % Monocytes % Eosinophils % Basophils % Nucleated RBC % Sodium Potassium Chloride Carbon Dioxide Anion Gap BUN Creatinine Creat Clearance w eGFR Random Glucose Lactic Acid Calcium Total Bilirubin AST ALT Alkaline Phosphatase Troponin I Total Protein Albumin Urine Color Kath Urine Appearance Cloudy Urine pH 5.0 Ur Specific [place] 1.029 Urine Protein 1+ H Urine Glucose (UA) 1+ H Urine Ketones Trace H Urine Blood Negative Urine Nitrite Negative Urine Bilirubin Negative Urine Urobilinogen 4.0 e.u/dl H Ur Leukocyte Esterase Trace Urine WBC (Auto) 14 Urine RBC (Auto) 1 Ur Epithelial Cells Moderate Urine Bacteria Many Urine Mucus Many ASSESSMENT/PLAN: 62F w/ pmhx of HTN was sent to the hospital by her PCP for a nonhealing finger abscess on her L hand, 2nd digit. #Non-healing finger abscess, cellulitis; -Zosyn 4.5 gm given -Vancomycin 1gm Q12H -blood/urine/wound cultures ordered -Gram stain ordered -ID consult ordered -daily wound care -Repeat lactate ordered -Isolation precautions #HTN Resume home med: -Valsartan 320 mg PO HS #DVT Ppx -Lovenox 40 mg SQ QD #FEN -HS @ 75 -recheck lytes in AM -Sodium-controlled diet dispo -admit to med-surg Visit type - Emergency Visit Emergency Visit: Yes ED Registration Date: 06/25/18 Care time: The patient presented to the Emergency Department on the above date and was hospitalized for further evaluation of their emergent condition. - New Patient This patient is new to me today: Yes Date on this admission: 06/26/18 - Critical Care Critical Care patient: No
[2018-06-26] MEDS ORDERED: SODIUM CHLORIDE 1,000 ML IV SCH (05:45)
[2018-06-26 07:17] LABS: BASO % 0.5 % (0-2.0); HEMATOCRIT 36.9 % (32.4-45.2); HEMOGLOBIN 12.2 GM/dL (10.7-15.3); LYMPH % 9.7 % (8-40); MCH 30.1 pg (25.7-33.7); MEAN CELL VOLUME 91.1 fl (80-96); MEAN PLT VOLUME 8.4 fl (7.5-11.1); MONO % 7.9 % (3.8-10.2); NEUT % 80.9 % (42.8-82.8); PLATELET COUNT 284 K/MM3 (134-434); RBC 4.05 M/mm3 (3.60-5.2); RDW 14.3 % (11.6-15.6); WHITE BLOOD COUNT 10.9 K/mm3 (4.0-10.0)
[2018-06-26 07:42] LABS: ALBUMIN 2.9 g/dl (3.4-5.0); ALK PHOS 86 U/L (45-117); ANION GAP 8 MMOL/L (8-16); BILIRUBIN,TOTAL 0.4 mg/dL (0.2-1); BLOOD UREA NITROGEN 16 mg/dL (7-18); CALCIUM 8.4 mg/dL (8.5-10.1); CHLORIDE 103 mmol/L (98-107); CO2 27 mmol/L (21-32); CREATININE 0.8 mg/dL (0.55-1.3); GLUCOSE,RANDOM 129 mg/dL (74-106); POTASSIUM 4.1 mmol/L (3.5-5.1); SGOT/AST 22 U/L (15-37); SGPT/ALT 28 U/L (13-61); SODIUM 138 mmol/L (136-145); TOT PROT 6.7 g/dl (6.4-8.2)
[2018-06-26 07:59] VITALS: BMI 46.3
[2018-06-26] MEDS ORDERED: VANCOMYCIN 1,000 MG in DEXTROSE 5%-WATER - 250 ML IVPB ONE (09:30)
[2018-06-26] MEDS ORDERED: VANCOMYCIN 1 GRAM (PRE-DOCKED) 1,000 MG/250 ML BAG IVPB ONE (09:30)
[2018-06-26] MEDS ORDERED: VANCOMYCIN 1,000 MG in DEXTROSE 5%-WATER - 250 ML IVPB SCH (09:30)
[2018-06-26] MEDS: ENOXAPARIN NA (PORCINE) 40 MG/0.4 ML DISP.SYRIN SQ SCH (09:31)
--- NOTE | 2018-06-26 11:16 | PN ---
Progress Note (short form) - Note Progress Note: ID Consult dictated Cellulitis, ST abscess L index finger Hx MRSA Await c/s Empiric vancomycin/ zosyn Hand surgery evaluation
[2018-06-26] MEDS: ALBUTEROL SO4 2.5/IPRATROPIUM 0.5 INH SOL 3 ML VIAL.NEB. NEB SCH ×3 (11:20→19:30)
[2018-06-26] MEDS ORDERED: DEXTROSE 5%-WATER - 50 ML IVPB ONE ×2 (12:01→17:42)
[2018-06-26] MEDS ORDERED: PIPERACILLIN/TAZOBACTAM 3.375 GM VIAL IVPB ONE ×2 (12:01→17:42)
--- NOTE | 2018-06-26 12:01 | CONS ---
DATE OF CONSULTATION: DATE OF DICTATION: 06/26/2018 The patient is a 62-year-old morbidly obese female, who is evaluated for a soft tissue abscess of the left index finger. The patient reports that she began to develop swelling of the left index finger approximately 5 to 6 days ago. She has no recall for any traumatic injury to her finger. 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 She has had a history of soft tissue infections in the past requiring incision and drainage, as well as a history of MRSA. She denied any associated fever or chills. As noted, she has no recall for any traumatic injury. No insect or animal bites or scratches. An x-ray was performed of the hand and was negative for fracture, dislocation, or osteomyelitis. In the emergency room, incision and drainage was performed and pus was obtained and sent for culture. Past medical history positive for hypertension, history of soft tissue infections with MRSA. No known allergies. Medications include Diovan, vancomycin and Zosyn, Lovenox. SOCIAL HISTORY: Is employed at [employer]. Nonsmoker, nondrinker. No history of illicit drugs. SYSTEMS REVIEW: Neurologic: No loss of consciousness, seizure activity, focal weakness. Cardiac: Negative chest pain or palpitations. Respiratory: Negative cough or sputum production. Gastrointestinal: Negative vomiting or diarrhea. Genitourinary: Negative for urinary tract infection. Positive UA for pyuria. LABORATORY DATA: White count on admission was 13.6, presently 10.9, hematocrit 36.9, platelet count 284. BUN 16, creatinine 0.8, lactic acid 2.6, presently 1.2. Urinalysis: 14 white cells. Cultures are pending. PHYSICAL EXAMINATION: General: She is awake and alert, she is morbid obesity, in no acute distress. Vital Signs: T-max 100. Blood pressure 130/72. Pulse 80, regular. Respirations 16 per minute. Eyes: Sclerae anicteric. Heart Sounds: S1, S2. No murmur. Lungs: Clear. Abdomen: Obese, soft, nontender. There are healed scars present on the upper abdomen. Extremities: Positive for edema. Examination of the left index finger, there is a fusiform swelling involving primarily the proximal digit between the MCP and PIP joint. There is an incisional wound with some drainage, and no fluctuance or crepitus. No lymphangitic streaking or epitrochlear adenopathy. Skin: Examination of the right buttock area, there is area of induration approximately 6 cm in diameter, with a center ulceration. There is no purulent drainage; however, there is drainage noted on the dressing. IMPRESSION: 1. Cellulitis/soft tissue abscess, left index finger. 2. History of methicillin-resistant Staphylococcus aureus. 3. Possible glucose intolerance. Await culture. Would obtain hand surgery evaluation as patient may require further debridement and evaluation for possible tenosynovitis. Continue empiric vancomycin and Zosyn pending culture results. Local wound care. Thank you for the kind referral. BEAN BEGUM M.D. [id number]
[2018-06-26] MEDS: PIPERACILLIN/TAZOB 3.375 GM 3.375 GM in DEXTROSE 5%-WATER - 50 ML IVPB SCH ×2 (12:20→17:47)
--- NOTE | 2018-06-26 12:33 | EKG ---
Test Reason : Blood Pressure : / mmHG Vent. Rate : 072 BPM Atrial Rate : 072 BPM P-R Int : 146 ms QRS Dur : 086 ms QT Int : 422 ms P-R-T Axes : 076 -01 031 degrees QTc Int : 462 ms NORMAL SINUS RHYTHM INFERIOR INFARCT , AGE UNDETERMINED ABNORMAL ECG Confirmed by MD TRISTON, MAYELA ([id number]) on 06/26/2018 12:33:24 PM Referred By: Confirmed By:MAYELA GOLDSTEIN MD
--- NOTE | 2018-06-26 13:40 | PN ---
Teaching Attending Note Name of Resident: Blaze Laguna ATTENDING PHYSICIAN STATEMENT I saw and evaluated the patient. I reviewed the resident's note and discussed the case with the resident. I agree with the resident's findings and plan as documented. SUBJECTIVE:states hand feels significantly improved but still very painful. denies CP, SOB, fever, chills, N/V/C/D OBJECTIVE: Last Vital Signs Temp Pulse Resp BP Pulse Ox 99.8 F H 80 16 130/72 97 06/26/18 07:52 06/26/18 07:52 06/26/18 07:52 06/26/18 07:52 06/26/18 08:06 General NAD Extremities L hand 2nd digit with circumferential swelling around the PIP joint with sub-centimeter laceration with active white drainage on palpation. surrounding 1cm erythema and tenderness. unable to make a fist. pulse intact Skin LLQ old healed scar, not infected. R buttock with active purulent drainage on palpation no warmth/tenderness or surrounding erythema ASSESSMENT AND PLAN: 62yo F wtih PMH HTN, morbid obesity and past infections iwth MRSA presented to the ER with L finger pain with assoc fever and chills 1. Sepsis due to finger abscess- s/p I&D 06/25 in the ER. continues to have active purulent drainage. may need further debridement. Consult hand surgeon for evaluation. cont with vanco/zosyn day 2. check vanco trough. ID on board. contact precautions. check HIV and A1c. F/u Cx 2. Buttock lesion- as per pt has been followed by PMD and not currently on abx but doing local wound care. will d/w with ID as could also be infected, however abx should cover this. cont local wound care 3. lactic acidosis- due to infection. now resolved 4. HTN- controlled. cont home medications 5. Morbid obesity- BMI 46. bariatric referal as outpatient 6. DVT ppx- lovenox
--- NOTE | 2018-06-26 14:24 | PN ---
Physical Exam: SUBJECTIVE: Patient seen and examined this AM. She states that her finger looks better than it did prior to coming into the hospital. She is still having some pain and some drainage onto the bandage. OBJECTIVE: Vital Signs Period Temp Pulse Resp BP Sys/Multani Pulse Ox Last 24 Hr 98.2 F-100.0 F 72-84 16-18 104-143/54-77 97-100 GENERAL: A&O, obese, no acute distress HEAD: Normocephalic, atraumatic. EYES: PERRL, no scleral icterus EARS, NOSE, THROAT: oropharynx clear without exudates. Moist mucous membranes. NECK: supple without lymphadenopathy LUNGS: CTA b/l, no crackles or wheezes HEART: Regular rate and rhythm, normal S1 and S2 without murmur ABDOMEN: Soft, nontender to palpation, normoactive bowel sounds MUSCULOSKELETAL: No bony deformities or tenderness. EXTREMITIES: 2+ pulses, warm, well-perfused. No peripheral edema. Left 2nd digit swollen with open abscess draining purulunt sanguinous fluid. NEUROLOGICAL: Cranial nerves II-XII grossly intact. Normal speech. PSYCHIATRIC: Cooperative. Good eye contact. Appropriate mood and affect. SKIN: Warm, dry, no rashes or lesions noted Laboratory Results - last 24 hr 06/25/18 06/25/18 06/25/18 20:54 20:54 20:54 WBC 13.6 H RBC 4.12 Hgb 12.2 Hct 37.4 MCV 90.8 MCH 29.5 MCHC 32.5 RDW 14.1 Plt Count 317 MPV 8.7 Absolute Neuts (auto) 10.9 H Neutrophils % 80.1 Lymphocytes % 11.5 Monocytes % 7.4 Eosinophils % 0.5 Basophils % 0.5 Nucleated RBC % 0 Sodium 138 Potassium 4.3 Chloride 100 Carbon Dioxide 28 Anion Gap 10 BUN 12 Creatinine 0.8 Creat Clearance w eGFR > 60 Random Glucose 203 H Lactic Acid 2.6 H* Calcium 9.2 Total Bilirubin 0.5 AST 20 ALT 26 Alkaline Phosphatase 82 Troponin I < 0.02 Total Protein 6.8 Albumin 3.0 L Urine Color Urine Appearance Urine pH Ur Specific [place] Urine Protein Urine Glucose (UA) Urine Ketones Urine Blood Urine Nitrite Urine Bilirubin Urine Urobilinogen Ur Leukocyte Esterase Urine WBC (Auto) Urine RBC (Auto) Ur Epithelial Cells Urine Bacteria Urine Mucus 06/25/18 06/26/1806/26/18 20:54 06:45 06:45 WBC 10.9 H RBC 4.05 Hgb 12.2 Hct 36.9 MCV 91.1 MCH 30.1 MCHC 33.0 RDW 14.3 Plt Count 284 MPV 8.4 Absolute Neuts (auto) 8.8 H Neutrophils % 80.9 Lymphocytes % 9.7 Monocytes % 7.9 Eosinophils % 1.0 D Basophils % 0.5 Nucleated RBC % 0 Sodium 138 Potassium 4.1 Chloride 103 Carbon Dioxide 27 Anion Gap 8 BUN 16 Creatinine 0.8 Creat Clearance w eGFR > 60 Random Glucose 129 H Lactic Acid Calcium 8.4 L Total Bilirubin 0.4 AST 22 ALT 28 Alkaline Phosphatase 86 Troponin I Total Protein 6.7 Albumin 2.9 L Urine Color Kath Urine Appearance Cloudy Urine pH 5.0 Ur Specific [place] 1.029 Urine Protein 1+ H Urine Glucose (UA) 1+ H Urine Ketones Trace H Urine Blood Negative Urine Nitrite Negative Urine Bilirubin Negative Urine Urobilinogen 4.0 e.u/dl H Ur Leukocyte Esterase Trace Urine WBC (Auto) 14 Urine RBC (Auto) 1 Ur Epithelial Cells Moderate Urine Bacteria Many Urine Mucus Many 06/26/18 07:00 WBC RBC Hgb Hct MCV MCH MCHC RDW Plt Count MPV Absolute Neuts (auto) Neutrophils % Lymphocytes % Monocytes % Eosinophils % Basophils % Nucleated RBC % Sodium Potassium Chloride Carbon Dioxide Anion Gap BUN Creatinine Creat Clearance w eGFR Random Glucose Lactic Acid 1.2 Calcium Total Bilirubin AST ALT Alkaline Phosphatase Troponin I Total Protein Albumin Urine Color Urine Appearance Urine pH Ur Specific [place] Urine Protein Urine Glucose (UA) Urine Ketones Urine Blood Urine Nitrite Urine Bilirubin Urine Urobilinogen Ur Leukocyte Esterase Urine WBC (Auto) Urine RBC (Auto) Ur Epithelial Cells Urine Bacteria Urine Mucus Active Medications Generic Name Dose Route Start Last Admin Trade Name Freq PRN Reason Stop Dose Admin Albuterol/Ipratropium 1 amp 06/26/18 07:15 06/26/18 11:20 Duoneb - NEB 1 amp QIDR NADIR Administration Enoxaparin Sodium 40 mg 06/26/18 10:00 06/26/18 09:31 Lovenox - SQ 40 mg DAILY NADIR Administration Vancomycin HCl 1,250 mg/ 250 mls @ 166.667 mls/hr 06/26/18 21:30 Dextrose IVPB BID@0930,2130 NADIR Protocol Piperacillin Sod/Tazobactam 50 mls @ 100 mls/hr 06/26/18 11:15 06/26/18 12:20 Sod 3.375 gm/ Dextrose IVPB 100 mls/hr Q8H-IV NADIR Administration Protocol Valsartan 320 mg 06/26/18 22:00 Diovan - PO HS NADIR ASSESSMENT/PLAN: 62 Female with PMH of HTN was sent to the ED by her PCP and admitted for abscess on the 2nd digit of her left hand. Left 2nd Digit Cellulitis/Abscess, also noted lesion/abscess on right buttock -I&D performed in ED -Xray not concerning for Osteo -Surgery consultation appreciated -s/p Bedside I&D performed by Dr. Knight -Wound care/dressing per surgery -Vanc/Zosyn Day 2 -Pt with recent history of MRSA abscess -Wound cultures pending -A1C and HIV tests pending, r/o causes for immunocompromise with multiple recent skin infections Morbid Obesity -Will supervisor counseling and guidance pt about weight loss -Consider bariatric surgery consult on discharge HTN -Diovan 320 mg PO HS DVT Prophylaxis -Lovenox 40 mg SQ Daily FEN -Fluids: none -Electrolytes: No electrolyte abnormalities, BMP in AM -Nutrition: Sodium Controlled Diet Disposition Med/Surg Visit type - Emergency Visit Emergency Visit: Yes ED Registration Date: 06/25/18 Care time: The patient presented to the Emergency Department on the above date and was hospitalized for further evaluation of their emergent condition. - New Patient This patient is new to me today: Yes Date on this admission: 06/26/18 - Critical Care Critical Care patient: No
[2018-06-26] MEDS ORDERED: LIDOCAINE HCL 1%, 10 MG/ML (20ML VIAL) NR ONE (14:42)
--- NOTE | 2018-06-26 14:42 | CONSULT ---
Consult Consult Specialty:: Hand and Microsurgery Reason for Consultation:: finger infection - History of Present Illness Chief Complaint: left index finger abscess History of Present Illness: 62yo RHD PMH HTN, obesity was sent to the ED by her PCP for a non-healing ulcer on her Left 2nd digit. Patient states she first noticed this wound last , but has no idea how she got it. She denies trauma to the area. Since , she states she had not taken anything for it and treated the wound with dressings. She denies fever/chills, faith/d, n/v, sob, chest pain, abd pain, urinary/bowel symptoms, blood in urine/stool, peripheral edema, problems walking. we were asked to assess. Denies personal history of diabetes. - History Source History Provided By: Patient, Medical Record Limitations to Obtaining History: No Limitations - Past Medical History Gastrointestinal: Yes: Gastritis ...: No Additional Medical History: morbid obesity - Alcohol/Substance Use Hx Alcohol Use: No - Smoking History Smoking history: Never smoked Have you smoked in the past 12 months: No Aproximately how many cigarettes per day: 0 - Social History Place of : [facility] History of Recent Travel: No Home Medications - Allergies Allergies/Adverse Reactions: Allergies Allergy/AdvReac Type Severity Reaction Status Date / Time No Known Allergies Allergy Verified 06/25/18 15:31 - Home Medications Home Medications: Ambulatory Orders Valsartan [Diovan] 320 mg PO HS 04/17/12 Review of Systems - Review of Systems Constitutional: denies: Chills, Lethargy Eyes: denies: Blind Spots, Recent Change in Vision HENT: denies: Difficult Swallowing, Throat Pain Neck: denies: Decreased ROM, Pain on Movement Cardiovascular: denies: Chest Pain, Palpitations Respiratory: denies: Cough, SOB Gastrointestinal: denies: Abdominal Pain, Constipation, Diarrhea Genitourinary: denies: Discharge, Dysuria, Flank Pain Breasts: reports: No Symptoms Reported. denies: Pain Musculoskeletal: denies: Back Pain, Muscle Pain Integumentary: reports: Lesions, Rash. denies: Eczema, Erythema Neurological: denies: Seizure, Syncope Endocrine: denies: Unexplained Weight Gain, Unexplained Weight Loss Hematology/Lymphatic: denies: Easily Bruised, Excessive Bleeding Psychiatric: denies: Anxiety, Depression Physical Exam Vital Signs: Vital Signs Temperature 99.8 F H 06/26/18 07:52 Pulse Rate 80 06/26/18 07:52 Respiratory Rate 16 06/26/18 07:52 Blood Pressure 130/72 06/26/18 07:52 O2 Sat by Pulse Oximetry (%) 97 06/26/18 08:06 Vital Signs Period Temp Pulse Resp BP Sys/Multani Pulse Ox Last 24 Hr 98.2 F-100.0 F 72-84 -18 104-143/54-77 97-100 Constitutional: Yes: No Distress, Calm, Obese Eyes: Yes: Conjunctiva Clear, EOM Intact HENT: Yes: Atraumatic, Normocephalic Neck: Yes: Supple, Trachea Midline Cardiovascular: Yes: Regular Rate and Rhythm, S1, S2 Respiratory: Yes: Regular, CTA Bilaterally Gastrointestinal: Yes: Normal Bowel Sounds, Soft, Abdomen, Obese. No: Tenderness ...Rectal Exam: Yes: Deferred Renal/: No: CVA Tenderness - Left, CVA Tenderness - Right Extremities: Yes: Erythema. No: Cool, Cyanosis Edema: Yes Edema: LUE: 2+ Peripheral Pulses WNL: Yes Integumentary: No: Jaundice, Rash, Skin Tear Wound/Incision: Yes: Dressing Removed, Reddened, Unapproximated Neurological: Yes: Alert, Oriented Psychiatric: Yes: Alert, Oriented Labs: CBC, BMP 06/26/18 06:45 06/26/18 06:45 Imaging - Results X-ray: Report Reviewed, Image Reviewed (swelling left index finger) Problem List - Problems (1) Abscess of left index finger Assessment/Plan: 62 you female MMP Left index finger abscess IV anatibitics ID consult Bedside Incision and Drainage of left index finger Discussed with patient risks, benefits and alternatives of the aforementioned Procedure, including but not limited to bleeding, infection, injury to adjacent structures, loss of function, amputation, need for further procedures, ; alternatives include antibiotics, delayed or no surgery - risks of this include failure of nonoperative therapy, loss of function, sepsis, recurrence, . Patient desires to proceed with operation - will take to OR for above. Informed consent signed for same. Thank you for the opportunity to participate in the care of this patient. Code(s): L02.512 - CUTANEOUS ABSCESS OF LEFT HAND (2) HTN (hypertension) Code(s): I10 - ESSENTIAL (PRIMARY) HYPERTENSION Qualifiers: Hypertension type: essential hypertension Qualified Code(s): I10 - Essential (primary) hypertension (3) Obesity (BMI 30-39.9) Code(s): E66.9 - OBESITY, UNSPECIFIED (4) Lactic acidosis Code(s): E87.2 - ACIDOSIS (5) Gastritis Code(s): K29.70 - GASTRITIS, UNSPECIFIED, WITHOUT BLEEDING Qualifiers: Gastritis type: atrophic Gastritis bleeding: without bleeding Qualified Code(s): K29.40 - Chronic atrophic gastritis without bleeding (6) Neuropathic pain of both feet Code(s): G62.9 - POLYNEUROPATHY, UNSPECIFIED
--- NOTE | 2018-06-26 14:46 | PROC ---
Incision and Drainage Indication/Location: Left index finger Risks and Benefits Explained: Yes Consent on Chart: Yes Betadine cleansed: Yes Anesthesia: 1% Lidocaine Blade Size: #15 Irrigated with Normal Saline: Yes Iodinated Packin/4 in Plain packing: No Sterile Dressing Applied: Yes - Remarks Remarks: Patient was prepped and drapped and, local digital block applied. Linear incision made dorsal radial aspect. thick non-foul smelling pus. packed and dressed.
[2018-06-26] MEDS ORDERED: KETOROLAC TROMETHAMINE 30 MG/1 ML VIAL IVPUSH PRN (15:39)
[2018-06-26] MEDS ORDERED: morphine CARPU-JECT 2 MG/1 ML DISP.SYRIN IVPUSH PRN (15:39)
[2018-06-26] MEDS ORDERED: morphine SULFATE 4 MG/ML VIAL IVPUSH PRN (15:43)
[2018-06-26] MEDS: VANCOMYCIN 1,250 MG in DEXTROSE 5%-WATER - 250 ML IVPB SCH (21:11)
[2018-06-26] MEDS: VALSARTAN 160 MG TABLET (UD) PO SCH (22:38)
[2018-06-27] MEDS ORDERED: PIPERACILLIN/TAZOBACTAM 3.375 GM VIAL IVPB ONE ×2 (01:26→10:43)
[2018-06-27] MEDS ORDERED: DEXTROSE 5%-WATER - 50 ML IVPB ONE ×2 (01:26→10:43)
[2018-06-27] MEDS: PIPERACILLIN/TAZOB 3.375 GM 3.375 GM in DEXTROSE 5%-WATER - 50 ML IVPB SCH ×2 (01:36→10:48)
[2018-06-27 08:01] LABS: HEMATOCRIT 33.7 % (32.4-45.2); MCH 29.8 pg (25.7-33.7); MCHC 32.5 g/dl (32.0-36.0); MEAN CELL VOLUME 91.6 fl (80-96); MEAN PLT VOLUME 8.8 fl (7.5-11.1); PLATELET COUNT 271 K/MM3 (134-434); RBC 3.68 M/mm3 (3.60-5.2); RDW 14.1 % (11.6-15.6); WHITE BLOOD COUNT 9.2 K/mm3 (4.0-10.0)
[2018-06-27 08:25] LABS: ANION GAP 9 MMOL/L (8-16); BLOOD UREA NITROGEN 11 mg/dL (7-18); CALCIUM 8.4 mg/dL (8.5-10.1); CHLORIDE 106 mmol/L (98-107); CO2 26 mmol/L (21-32); CREATININE 0.6 mg/dL (0.55-1.3); GLUCOSE,RANDOM 124 mg/dL (74-106); MAGNESIUM 2.3 mg/dL (1.8-2.4); PHOSPHOROUS 3.4 mg/dL (2.5-4.9); POTASSIUM 4.2 mmol/L (3.5-5.1); SODIUM 142 mmol/L (136-145)
[2018-06-27] MEDS: ALBUTEROL SO4 2.5/IPRATROPIUM 0.5 INH SOL 3 ML VIAL.NEB. NEB SCH ×6 (08:45→20:29)
[2018-06-27] MEDS: ENOXAPARIN NA (PORCINE) 40 MG/0.4 ML DISP.SYRIN SQ SCH (10:49)
--- NOTE | 2018-06-27 11:24 | PN ---
Progress Note, Physician Chief Complaint: left index finger infection History of Present Illness: 62yo RHD PMH HTN, obesity was sent to the ED by her PCP for a non-healing ulcer on her Left 2nd digit. Patient states she first noticed this wound last , but has no idea how she got it. She reports - Current Medication List Current Medications: Active Medications Albuterol/Ipratropium (Duoneb -) 1 amp NEB RQID NADIR Enoxaparin Sodium (Lovenox -) 40 mg SQ DAILY [facility] Last Admin: 06/27/18 10:49 Dose: 40 mg Vancomycin HCl 1,250 mg/ (Dextrose) 250 mls @ 166.667 mls/hr IVPB BID@0930, 2130 [facility]; Protocol Last Admin: 06/26/18 21:11 Dose: 166.667 mls/hr Piperacillin Sod/Tazobactam (Sod 3.375 gm/ Dextrose) 50 mls @ 100 mls/hr IVPB Q8H-IV NADIR; Protocol Last Admin: 06/27/18 10:48 Dose: 100 mls/hr Ketorolac Tromethamine (Toradol Injection -) 30 mg IVPUSH Q6H PRN PRN Reason: PAIN LEVEL 7 - 10 Stop: 07/01/18 15:44 Morphine Sulfate (Morphine Sulfate) 4 mg IVPUSH Q4H PRN PRN Reason: PAIN LEVEL 7 - 10 Valsartan (Diovan -) 320 mg PO HS [facility] Last Admin: 06/26/18 22:38 Dose: 320 mg - Objective Vital Signs: Vital Signs Temperature 98.4 F 06/27/18 07:19 Pulse Rate 62 06/27/18 07:19 Respiratory Rate 20 06/27/18 07:19 Blood Pressure 88/52 L 06/27/18 07:19 O2 Sat by Pulse Oximetry (%) 96 06/26/18 21:00 Vital Signs Period Temp Pulse Resp BP Sys/Multani Pulse Ox Last 24 Hr 97.9 F-98.5 F 62-74 16-20 88-121/52-75 96-96 Constitutional: Yes: No Distress, Calm, Obese Eyes: Yes: Conjunctiva Clear, EOM Intact HENT: Yes: Atraumatic, Normocephalic Neck: Yes: Supple, Trachea Midline Cardiovascular: Yes: Regular Rate and Rhythm, S1, S2 Respiratory: Yes: Regular, CTA Bilaterally Gastrointestinal: Yes: Normal Bowel Sounds, Soft, Abdomen, Obese. No: Tenderness, Tenderness, Epigastrium, Tenderness, Rebound ...Rectal Exam: Yes: Deferred Genitourinary: No: CVA Tenderness - Left, CVA Tenderness - Right Musculoskeletal: No: Muscle Pain, Muscle Weakness Extremities: No: Cool, Cyanosis Edema: No Peripheral Pulses WNL: Yes Peripheral Pulses: Left Radial: 2+, Right Radial: 2+, Left Doralis Pedis: 2+, Right Dorsalis Pedis: 2+ Integumentary: No: Jaundice, Pressure Ulcer, Rash Wound/Incision: Yes: Clean/Dry, Unapproximated (left index finger, 2X1cm) Neurological: Yes: Alert, Oriented Psychiatric: Yes: Alert, Oriented Labs: CBC, BMP 06/27/18 06:30 06/27/18 06:30 Problem List - Problems (1) Abscess of left index finger Assessment/Plan: 62 you female MMP Left index finger abscess PPD#1 s/p I&D of left index finger abscess Local wound care Dressing instructions optimize antibiotic therapy f/u deep wound culture Physical therapy eval will follow Code(s): L02.512 - CUTANEOUS ABSCESS OF LEFT HAND (2) HTN (hypertension) Code(s): I10 - ESSENTIAL (PRIMARY) HYPERTENSION Qualifiers: Hypertension type: essential hypertension Qualified Code(s): I10 - Essential (primary) hypertension (3) Obesity (BMI 30-39.9) Code(s): E66.9 - OBESITY, UNSPECIFIED (4) Lactic acidosis Code(s): E87.2 - ACIDOSIS (5) Gastritis Code(s): K29.70 - GASTRITIS, UNSPECIFIED, WITHOUT BLEEDING Qualifiers: Gastritis type: atrophic Gastritis bleeding: without bleeding Qualified Code(s): K29.40 - Chronic atrophic gastritis without bleeding (6) Neuropathic pain of both feet Code(s): G62.9 - POLYNEUROPATHY, UNSPECIFIED
[2018-06-27] MEDS: VANCOMYCIN 1,250 MG in DEXTROSE 5%-WATER - 250 ML IVPB SCH ×2 (12:00→20:34)
--- NOTE | 2018-06-27 12:19 | CONSULT ---
Consult Consult Specialty:: General Surgery Reason for Consultation:: pilonidal abscess/ cellulitis - History of Present Illness Chief Complaint: infection soft tissue History of Present Illness: 62yo PMH HTN, obesity was sent to the ED by her PCP for a non-healing ulcer on her Left 2nd digit. This was addresed with incision and drainge yesterday. Patient then reported to the nurse that she also has painful drining pilonical back abscess as well. She states she first noticed this wound a week ago, but has no idea how she got it. She denies trauma to the area. She denies fever/ chills, faith/d, n/v, sob, chest pain, abd pain, urinary/bowel symptoms, blood in urine/stool, peripheral edema, problems walking. we were asked to assess. Denies personal history of diabetes. - History Source History Provided By: Patient, Medical Record Limitations to Obtaining History: No Limitations - Past Medical History Gastrointestinal: Yes: Gastritis ...: No Additional Medical History: morbid obesity - Alcohol/Substance Use Hx Alcohol Use: No - Smoking History Smoking history: Never smoked Have you smoked in the past 12 months: No Aproximately how many cigarettes per day: 0 - Social History History of Recent Travel: No Home Medications - Allergies Allergies/Adverse Reactions: Allergies Allergy/AdvReac Type Severity Reaction Status Date / Time No Known Allergies Allergy Verified 06/25/18 15:31 - Home Medications Home Medications: Ambulatory Orders Valsartan [Diovan] 320 mg PO HS 04/17/12 Review of Systems - Review of Systems Constitutional: denies: Chills, Fever Eyes: denies: Blurred Vision, Recent Change in Vision HENT: denies: Difficult Swallowing, Throat Pain Neck: denies: Decreased ROM, Tenderness Cardiovascular: denies: Chest Pain, Palpitations Respiratory: denies: Cough, SOB Gastrointestinal: denies: Abdominal Pain, Constipation, Diarrhea Genitourinary: denies: Discharge, Dysuria Breasts: reports: No Symptoms Reported. denies: Pain Musculoskeletal: denies: Extremity Pain, Muscle Pain, Muscle Cramps Integumentary: reports: Wound (pilobidal area). denies: Blister, Bruising, Lesions, Lump Neurological: denies: Seizure, Syncope Endocrine: denies: Unexplained Weight Gain, Unexplained Weight Loss Hematology/Lymphatic: denies: Easily Bruised, Excessive Bleeding Psychiatric: denies: Anxiety, Depression Physical Exam Vital Signs: Vital Signs Temperature 98.4 F 06/27/18 07:19 Pulse Rate 62 06/27/18 07:19 Respiratory Rate 20 06/27/18 07:19 Blood Pressure 88/52 L 06/27/18 07:19 O2 Sat by Pulse Oximetry (%) 96 06/26/18 21:00 Vital Signs Period Temp Pulse Resp BP Sys/Multani Pulse Ox Last 24 Hr 97.9 F-98.5 F 62-74 16-20 88-121/52-75 96-96 Intake & Output 06/27/18 06/27/18 06/27/18 07:59 15:59 23:59 Intake Total 550 Balance 550 Weight 287 lb Intake: IVPB 300 Oral 250 Other: Voiding Method Toilet # Unmeasured Voids Void 1 1 Bowel Movement No No Height 5 ft 6 in Body Mass Index (BMI) 46.3 Constitutional: Yes: Well Nourished, No Distress, Calm, Obese, Other Eyes: Yes: Conjunctiva Clear HENT: Yes: Atraumatic, Normocephalic Neck: Yes: Supple, Trachea Midline Cardiovascular: Yes: Regular Rate and Rhythm, S1, S2 Respiratory: Yes: Regular, CTA Bilaterally Gastrointestinal: Yes: Abdomen, Obese. No: Normal Bowel Sounds, Soft, Tenderness ...Rectal Exam: Yes: Induration (spontaneously draining 3X4 cm central pilonidal carbuncle.), Sphincter Tone Normal, Other Renal/: No: CVA Tenderness - Left, CVA Tenderness - Right Breast(s): No: Discharge from Nipple, Mass Musculoskeletal: No: Muscle Pain, Muscle Weakness Extremities: No: Cool, Cyanosis Edema: No Peripheral Pulses WNL: Yes Integumentary: Yes: Other Wound/Incision: Yes: Clean/Dry, Draining, Reddened, Unapproximated (Left index finger [id number] surrounding erythema resolving. no draininge. Pilonical area 3X4cm fluctuant draining yellow pus, non foul smelling.) Neurological: Yes: Alert, Oriented Psychiatric: Yes: Alert, Oriented Labs: CBC, BMP 06/27/18 06:30 06/27/18 06:30 Problem List - Problems (1) Pilonidal abscess Assessment/Plan: 62 yo female MMP spontaneously draining pilonidal carbuncle NPO after midnight IVF hydration IV antibiotics OR for Incision and drainage of pilonidal carbuncle 06/28 Discussed with patient risks, benefits and alternatives of aforementioned procedure, including but not limited to bleeding, infection, injury to adjacent structures, need for further procedures, ; alternatives include antibiotics , delayed or no surgery - risks of this include failure of nonoperative therapy , sepsis, recurrence, . Patient desires to proceed with operation - will take to OR for above. Informed consent signed for same. Code(s): L05.01 - PILONIDAL CYST WITH ABSCESS (2) Abscess of left index finger Code(s): L02.512 - CUTANEOUS ABSCESS OF LEFT HAND (3) HTN (hypertension) Code(s): I10 - ESSENTIAL (PRIMARY) HYPERTENSION Qualifiers: Hypertension type: essential hypertension Qualified Code(s): I10 - Essential (primary) hypertension (4) Obesity (BMI 30-39.9) Code(s): E66.9 - OBESITY, UNSPECIFIED (5) Lactic acidosis Code(s): E87.2 - ACIDOSIS (6) Gastritis Code(s): K29.70 - GASTRITIS, UNSPECIFIED, WITHOUT BLEEDING Qualifiers: Gastritis type: atrophic Gastritis bleeding: without bleeding Qualified Code(s): K29.40 - Chronic atrophic gastritis without bleeding (7) Neuropathic pain of both feet Code(s): G62.9 - POLYNEUROPATHY, UNSPECIFIED
--- NOTE | 2018-06-27 15:08 | PN ---
Physical Exam: SUBJECTIVE: Patient seen and examined this AM. She states she is feeling well today and the pain in her finger is much improved from yesterday. OBJECTIVE: Vital Signs Period Temp Pulse Resp BP Sys/Multani Pulse Ox Last 24 Hr 98 F-99.8 F 60-76 16-20 88-138/46-78 96 GENERAL: A&O, obese, no acute distress HEAD: Normocephalic, atraumatic. EYES: PERRL, no scleral icterus EARS, NOSE, THROAT: oropharynx clear without exudates. Moist mucous membranes. NECK: supple without lymphadenopathy LUNGS: CTA b/l, no crackles or wheezes HEART: Regular rate and rhythm, normal S1 and S2 without murmur ABDOMEN: Soft, nontender to palpation, normoactive bowel sounds MUSCULOSKELETAL: No bony deformities or tenderness. EXTREMITIES: 2+ pulses, warm, well-perfused. No peripheral edema. Dressing clean dry and in tact on Left 2nd digit. NEUROLOGICAL: Cranial nerves II-XII grossly intact. Normal speech. PSYCHIATRIC: Cooperative. Good eye contact. Appropriate mood and affect. SKIN: Erythema and indurated area noted on right buttock, dressing in tact with serosanguinous and yellow drainage noted Laboratory Results - last 24 hr 06/26/18 06/27/18 06/27/18 17:00 06:30 06:30 WBC 9.2 RBC 3.68 Hgb 11.0 Hct 33.7 MCV 91.6 MCH 29.8 MCHC 32.5 RDW 14.1 Plt Count 271 MPV 8.8 Sodium 142 Potassium 4.2 Chloride 106 Carbon Dioxide 26 Anion Gap 9 BUN 11 Creatinine 0.6 Creat Clearance w eGFR > 60 Random Glucose 124 H Hemoglobin A1c % Calcium 8.4 L Phosphorus 3.4 Magnesium 2.3 HIV 1&2 Antibody Screen Negative HIV P24 Antigen Negative 06/27/18 06:30 WBC RBC Hgb Hct MCV MCH MCHC RDW Plt Count MPV Sodium Potassium Chloride Carbon Dioxide Anion Gap BUN Creatinine Creat Clearance w eGFR Random Glucose Hemoglobin A1c % 6.6 H Calcium Phosphorus Magnesium HIV 1&2 Antibody Screen HIV P24 Antigen Active Medications Generic Name Dose Route Start Last Admin Trade Name Freq PRN Reason Stop Dose Admin Albuterol/Ipratropium 1 amp 06/27/18 08:00 06/27/18 12:40 Duoneb - NEB Not Given RQID NADIR Enoxaparin Sodium 40 mg 06/26/18 10:00 06/27/18 10:49 Lovenox - SQ 40 mg DAILY NADIR Administration Vancomycin HCl 1,250 mg/ 250 mls @ 166.667 mls/hr 06/26/18 21:30 06/27/18 12: 00 Dextrose IVPB 166.667 mls/hr BID@0930,2130 NADIR Administration Protocol Piperacillin Sod/Tazobactam 50 mls @ 100 mls/hr 06/26/18 11:15 06/27/18 10:48 Sod 3.375 gm/ Dextrose IVPB 100 mls/hr Q8H-IV NADIR Administration Protocol Ketorolac Tromethamine 30 mg 06/26/18 15:39 Toradol Injection - IVPUSH 07/01/18 15:44 Q6H PRN PAIN LEVEL 7 - 10 Morphine Sulfate 4 mg 06/26/18 15:43 Morphine Sulfate IVPUSH Q4H PRN PAIN LEVEL 7 - 10 Valsartan 320 mg 06/26/18 22:00 06/26/18 22:38 Diovan - PO 320 mg HS NADIR Administration ASSESSMENT/PLAN: 62 Female with PMH of HTN was sent to the ED by her PCP and admitted for abscess on the 2nd digit of her left hand. Left 2nd Digit Cellulitis/Abscess, also noted lesion/abscess on right buttock -I&D performed in ED -Xray not concerning for Osteo -Surgery consultation appreciated -s/p Bedside I&D performed by Dr. Knight -Wound care/dressing per surgery -Vanc/Zosyn Day 3 -Pt with recent history of MRSA abscess -Wound cultures from 2nd digit presumptive MRSA -HIV negative -A1C 6.6, pt without known hx of diabetes Elevated A1C -Pt without known history of Diabetes -A1C 6.6% meets criteria for NIDDM as pt will not require insulin at this time -Pt will need outpatient follow up with PCP for continuous churn buttermaker management of glucose control -Diabetic Sodium controlled diet Morbid Obesity -Will work counselor pt about weight loss -Dietary consult for pt counseling -Consider bariatric surgery consult on discharge HTN -Diovan 320 mg PO HS DVT Prophylaxis -Lovenox 40 mg SQ Daily FEN -Fluids: none -Electrolytes: No electrolyte abnormalities, BMP in AM -Nutrition: Sodium Controlled Diabetic Diet Disposition Med/Surg Visit type - Emergency Visit Emergency Visit: Yes ED Registration Date: 06/25/18 Care time: The patient presented to the Emergency Department on the above date and was hospitalized for further evaluation of their emergent condition. - New Patient This patient is new to me today: No - Critical Care Critical Care patient: No
--- NOTE | 2018-06-27 15:34 | PN ---
Teaching Attending Note Name of Resident: Blaze Laguna ATTENDING PHYSICIAN STATEMENT I saw and evaluated the patient. I reviewed the resident's note and discussed the case with the resident. I agree with the resident's findings and plan as documented. SUBJECTIVE:pain improved. mobility of finger improved. denies CP, SOB, fever, chills, N/V/C/D OBJECTIVE: Last Vital Signs Temp Pulse Resp BP Pulse Ox 98.4 F 62 20 88/52 L 96 06/27/18 07:19 06/27/18 07:19 06/27/18 07:19 06/27/18 07:19 06/26/18 21:00 General NAD Extremities L hand 2nd digit with incision with packing in place. swelling improved. mobility of finger improved. ASSESSMENT AND PLAN: 62yo F wtih PMH HTN, morbid obesity and past infections iwth MRSA presented to the ER with L finger pain with assoc fever and chills 1. Sepsis due to finger abscess- s/p I&D 06/25 in the ER. repeat I&D 06/26. Wcx has presumed MRSA. will cont abx for now. d/c zosyn. cont vanco and check trough tomorrow afternoon prior to 4th dose. plastics and ID on board. contact precautions. HIV negative 2. Buttock lesion- as per pt has been followed by PMD and not currently on abx but doing local wound care. will d/w with ID as could also be infected, however abx should cover this. cont local wound care 3. DM- newly diagnosed. A1c 6.6. educated on risks of uncontrolled DM can lead to early . lifestyle modifications with diet and exercise. facility maintenance worker consult to educate on appropriate diet. will need repeat A1c in 3 months to determine if medications are needed 4. lactic acidosis- due to infection. now resolved 5. HTN- controlled. cont home medications 6. Morbid obesity- BMI 46. bariatric referal as outpatient 7. DVT ppx- lovenox 8. spoke with son present. all questions answered. verbalized understanding of plan.
[2018-06-27] MEDS: LACTOBACILLUS ACIDOPHILUS 1 TABLET PO SCH (18:28)
[2018-06-27] MEDS: VALSARTAN 160 MG TABLET (UD) PO SCH (22:20)
[2018-06-28 07:15] LABS: HEMATOCRIT 36.2 % (32.4-45.2); HEMOGLOBIN 11.6 GM/dL (10.7-15.3); MCH 29.2 pg (25.7-33.7); MCHC 31.9 g/dl (32.0-36.0); MEAN CELL VOLUME 91.6 fl (80-96); MEAN PLT VOLUME 8.7 fl (7.5-11.1); PLATELET COUNT 316 K/MM3 (134-434); RBC 3.95 M/mm3 (3.60-5.2); RDW 14.3 % (11.6-15.6)
[2018-06-28] MEDS: ALBUTEROL SO4 2.5/IPRATROPIUM 0.5 INH SOL 3 ML VIAL.NEB. NEB SCH ×4 (07:54→21:26)
[2018-06-28] MEDS: ENOXAPARIN NA (PORCINE) 40 MG/0.4 ML DISP.SYRIN SQ SCH (10:38)
[2018-06-28] MEDS: LACTOBACILLUS ACIDOPHILUS 1 TABLET PO SCH (10:39)
--- NOTE | 2018-06-28 10:59 | PN ---
Progress Note, Physician History of Present Illness: S/P I&D finger soft tissue abscess No c/o pain Temps down Afebrile WBC improved WNL For OR drainage of R gluteal abscess - Current Medication List Current Medications: Active Medications Albuterol/Ipratropium (Duoneb -) 1 amp NEB RQID [facility] Last Admin: 06/28/18 07:54 Dose: 1 amp Enoxaparin Sodium (Lovenox -) 40 mg SQ DAILY [facility] Last Admin: 06/27/18 10:49 Dose: 40 mg Vancomycin HCl 1,250 mg/ (Dextrose) 250 mls @ 166.667 mls/hr IVPB BID@0930, 2130 [facility]; Protocol Last Admin: 06/27/18 20:34 Dose: 166.667 mls/hr Ketorolac Tromethamine (Toradol Injection -) 30 mg IVPUSH Q6H PRN PRN Reason: PAIN LEVEL 7 - 10 Stop: 07/01/18 15:44 Lactobacillus Acidophilus (Bacid -) 1 tab PO DAILY [facility] Last Admin: 06/27/18 18:28 Dose: 1 tab Morphine Sulfate (Morphine Sulfate) 4 mg IVPUSH Q4H PRN PRN Reason: PAIN LEVEL 7 - 10 Valsartan (Diovan -) 320 mg PO HS [facility] Last Admin: 06/27/18 22:20 Dose: 320 mg - Objective Vital Signs: Vital Signs Temperature 98.6 F 06/28/18 06:52 Pulse Rate 62 06/28/18 06:52 Respiratory Rate 20 06/28/18 06:52 Blood Pressure 99/60 06/28/18 06:52 O2 Sat by Pulse Oximetry (%) 96 06/27/18 21:00 Constitutional: Yes: Obese Cardiovascular: Yes: Regular Rate and Rhythm, S1, S2 Respiratory: Yes: CTA Bilaterally Gastrointestinal: Yes: Normal Bowel Sounds, Soft. No: Tenderness Extremities: Yes: Other (L index finger incisional wound w/o drainage) Integumentary: Yes: Other (R gluteal abscess with induration, purulent drainage) Labs: CBC, BMP 06/28/18 06:00 06/27/18 06:30 Assessment/Plan L index finger soft tissue abscess s/p I&D presumed MRSA R gluteal abscess Fever/ leukocytosis- improved Lactic acidosis- resolved Continue vancomycin Check vancomycin trough For I&D gluteal abscess today
[2018-06-28] MEDS: VANCOMYCIN 1,250 MG in DEXTROSE 5%-WATER - 250 ML IVPB SCH ×2 (11:38→21:13)
--- NOTE | 2018-06-28 16:35 | PN ---
Physical Exam: SUBJECTIVE: Patient seen and examined this AM. She states she is feeling well with no complaints overnight. Her finger is not as painful, the swelling has decreased, and her range of motion has improved. OBJECTIVE: Vital Signs Period Temp Pulse Resp BP Sys/Multani Pulse Ox Last 24 Hr 98.5 F-98.6 F 62-86 18-22 99-121/60-64 96-96 GENERAL: A&O, obese, no acute distress HEAD: Normocephalic, atraumatic. EYES: PERRL, no scleral icterus EARS, NOSE, THROAT: oropharynx clear without exudates. Moist mucous membranes. NECK: supple without lymphadenopathy LUNGS: CTA b/l, no crackles or wheezes HEART: Regular rate and rhythm, normal S1 and S2 without murmur ABDOMEN: Soft, nontender to palpation, normoactive bowel sounds MUSCULOSKELETAL: No bony deformities or tenderness. EXTREMITIES: 2+ pulses, warm, well-perfused. No peripheral edema. Dressing in tact on Left 2nd digit with serosanguinous drainage NEUROLOGICAL: Cranial nerves II-XII grossly intact. Normal speech. PSYCHIATRIC: Cooperative. Good eye contact. Appropriate mood and affect. SKIN: Erythema and indurated area noted on right buttock, dressing in tact with serosanguinous and yellow drainage noted Laboratory Results - last 24 hr 06/28/18 06/28/18 06/28/18 06:00 10:40 10:40 WBC 9.0 RBC 3.95 Hgb 11.6 Hct 36.2 MCV 91.6 MCH 29.2 MCHC 31.9 L RDW 14.3 Plt Count 316 MPV 8.7 Random Vancomycin 12.9 L Vancomycin Pre-Dose Cancelled Active Medications Generic Name Dose Route Start Last Admin Trade Name Freq PRN Reason Stop Dose Admin Albuterol/Ipratropium 1 amp 06/27/18 08:00 06/28/18 15:39 Duoneb - NEB Not Given RQID NADIR Enoxaparin Sodium 40 mg 06/26/18 10:00 06/28/18 10:38 Lovenox - SQ 40 mg DAILY [facility] Administration Vancomycin HCl 1,250 mg/ 250 mls @ 166.667 mls/hr 06/26/18 21:30 06/28/18 11: 38 Dextrose IVPB 166.667 mls/hr BID@0930,2130 [facility] Administration Protocol Ketorolac Tromethamine 30 mg 06/26/18 15:39 Toradol Injection - IVPUSH 07/01/18 15:44 Q6H PRN PAIN LEVEL 7 - 10 Lactobacillus Acidophilus 1 tab 06/27/18 15:45 06/28/18 10:39 Bacid - PO 1 tab DAILY [facility] Administration Morphine Sulfate 4 mg 06/26/18 15:43 Morphine Sulfate IVPUSH Q4H PRN PAIN LEVEL 7 - 10 Valsartan 320 mg 06/26/18 22:00 06/27/18 22:20 Diovan - PO 320 mg HS NAD[facility] Administration ASSESSMENT/PLAN: 62 Female with PMH of HTN was sent to the ED by her PCP and admitted for abscess on the 2nd digit of her left hand and right buttock Left 2nd Digit Cellulitis/Abscess, also noted lesion/abscess on right buttock -I&D performed in ED -Xray not concerning for Osteo -Surgery consultation appreciated -s/p Bedside I&D performed by Dr. Knight -For OR today for right buttock abscess I&D -Wound care/dressing per surgery -Vanc/Zosyn Day 4 -Vanc trough noted 12.9 -Pt with recent history of MRSA abscess -Wound cultures from 2nd digit MRSA +, sensitive to Vanco -HIV negative -A1C 6.6, pt without known hx of diabetes Elevated A1C -Pt without known history of Diabetes -A1C 6.6% meets criteria for NIDDM as pt will not require insulin at this time -Pt will need outpatient follow up with PCP for oysterman management of glucose control -Diabetic Sodium controlled diet Morbid Obesity -Will appliance counselor pt about weight loss -Dietary consult for pt counseling -Consider bariatric surgery consult on discharge HTN -Diovan 320 mg PO HS DVT Prophylaxis -Lovenox 40 mg SQ Daily, hold for OR FEN -Fluids: none -Electrolytes: No electrolyte abnormalities, BMP in AM -Nutrition: NPO for OR Disposition Med/Surg Visit type - Emergency Visit Emergency Visit: Yes ED Registration Date: 06/25/18 Care time: The patient presented to the Emergency Department on the above date and was hospitalized for further evaluation of their emergent condition. - New Patient This patient is new to me today: No - Critical Care Critical Care patient: No
--- NOTE | 2018-06-28 18:20 | PN ---
Teaching Attending Note Name of Resident: Blaze Laguna ATTENDING PHYSICIAN STATEMENT I saw and evaluated the patient. I reviewed the resident's note and discussed the case with the resident. I agree with the resident's findings and plan as documented. SUBJECTIVE:states hand feels better today. improved mobility. denies CP, SOB, fever, chills, N/V/C/d OBJECTIVE: Last Vital Signs Temp Pulse Resp BP Pulse Ox 98.5 F 64 20 142/69 96 06/28/18 17:07 06/28/18 17:07 06/28/18 17:07 06/28/18 17:07 06/28/18 09:00 General NAD Extremities L hand 2nd digit with incision, no active drainage. packing removed. no tenderness or erythema surrounding incision. unable to make complete fist but can oppose the finger with the thumb ASSESSMENT AND PLAN: 62yo F wtih PMH HTN, morbid obesity and past infections iwth MRSA presented to the ER with L finger pain with assoc fever and chills 1. Sepsis due to finger abscess- s/p I&D 06/25 in the ER. repeat I&D 06/26. Wcx has presumed MRSA. on vanco. vanco level today. plastics and ID on board. contact precautions. HIV negative 2. Buttock abscess- plan for I&D in the OR today by plastics. cx to be sent to [facility] but presumed to be MRSA as well based on pt history. on vanco. 3. DM- newly diagnosed. A1c 6.6. dietary education with window unit air conditioning mechanic. will need repeat A1c in 3 months to determine if medications are needed 4. lactic acidosis- due to infection. now resolved 5. HTN- controlled. cont home medications 6. Morbid obesity- BMI 46. bariatric referal as outpatient 7. DVT ppx- lovenox
[2018-06-28] MEDS: VALSARTAN 160 MG TABLET (UD) PO SCH (21:31)
--- NOTE | 2018-06-29 03:08 | OP ---
Operative Note - Note: Operative Date: 06/29/18 Pre-Operative Diagnosis: pilonidal abscess Operation: sharp surgical debridement of pilonidal abscess Findings: pilonidal carcuncle, purulent drainge Post-Operative Diagnosis: Same as Pre-op Surgeon: Federico Knight Anesthesiologist/SEAT COVER MAKER: Tulio Polanco Anesthesia: General, Local Specimens Removed: culture, pilonidal carbuncle Estimated Blood Loss (mls): 10 Fluid Volume Replaced (mls): 500 Operative Report Dictated: Yes
[2018-06-29] MEDS ORDERED: PROPOFOL 20 ML ONE (04:03)
[2018-06-29] MEDS ORDERED: MIDAZOLAM HCL 2 MG/2 ML SINGLE DOSE VIAL ONE ×2 (04:04)
[2018-06-29] MEDS ORDERED: LIDOCAINE HCL 1%, 10 MG/ML (20ML VIAL) ONE (04:08)
[2018-06-29] MEDS ORDERED: LIDOCAINE HCL 1%, 10 MG/ML (20ML VIAL) INF ONE (04:23)
[2018-06-29] MEDS ORDERED: PROMETHAZINE HCL 25 MG/1 ML VIAL IVPUSH PRN (04:40)
[2018-06-29] MEDS ORDERED: ONDANSETRON 4 MG/2 ML VIAL IVPUSH PRN (04:40)
[2018-06-29] MEDS ORDERED: oxyCODONE HCL 5 MG TABLET PO PRN (04:40)
[2018-06-29] MEDS ORDERED: KETOROLAC TROMETHAMINE 30 MG/1 ML VIAL IVPUSH PRN (05:18)
[2018-06-29] MEDS ORDERED: VANCOMYCIN 1,000 MG in DEXTROSE 5%-WATER - 250 ML IVPB ONE (05:18)
[2018-06-29] MEDS ORDERED: morphine SULFATE 4 MG/ML VIAL IVPUSH PRN (05:18)
[2018-06-29 07:39] LABS: HEMATOCRIT 34.1 % (32.4-45.2); MCH 29.4 pg (25.7-33.7); MCHC 32.2 g/dl (32.0-36.0); MEAN CELL VOLUME 91.4 fl (80-96); MEAN PLT VOLUME 8.7 fl (7.5-11.1); PLATELET COUNT 292 K/MM3 (134-434); RBC 3.74 M/mm3 (3.60-5.2); RDW 13.8 % (11.6-15.6); WHITE BLOOD COUNT 7.6 K/mm3 (4.0-10.0)
[2018-06-29] MEDS: ALBUTEROL SO4 2.5/IPRATROPIUM 0.5 INH SOL 3 ML VIAL.NEB. NEB SCH ×4 (07:42→20:50)
[2018-06-29 08:41] LABS: ANION GAP 7 MMOL/L (8-16); BLOOD UREA NITROGEN 10 mg/dL (7-18); CALCIUM 8.9 mg/dL (8.5-10.1); CHLORIDE 106 mmol/L (98-107); CO2 28 mmol/L (21-32); CREATININE 0.6 mg/dL (0.55-1.3); GLUCOSE,RANDOM 108 mg/dL (74-106); MAGNESIUM 2.5 mg/dL (1.8-2.4); PHOSPHOROUS 3.9 mg/dL (2.5-4.9); POTASSIUM 4.5 mmol/L (3.5-5.1); SODIUM 141 mmol/L (136-145)
--- NOTE | 2018-06-29 09:08 | PN ---
Physical Exam: SUBJECTIVE: Patient seen and examined this AM. Pt returned from OR early this morning. Says she is feeling well and is wondering how many more days she will need to stay in the hospital. OBJECTIVE: Vital Signs Period Temp Pulse Resp BP Sys/Multani Pulse Ox Last 24 Hr 97.7 F-98.6 F 56-86 14-22 97-142/46-70 96-100 GENERAL: A&O, obese, no acute distress HEAD: Normocephalic, atraumatic. EYES: PERRL, no scleral icterus EARS, NOSE, THROAT: oropharynx clear without exudates. Moist mucous membranes. NECK: supple without lymphadenopathy LUNGS: CTA b/l, no crackles or wheezes HEART: Regular rate and rhythm, normal S1 and S2 without murmur ABDOMEN: Soft, nontender to palpation, normoactive bowel sounds MUSCULOSKELETAL: No bony deformities or tenderness. EXTREMITIES: 2+ pulses, warm, well-perfused. No peripheral edema. Dressing in tact on Left 2nd digit with minimal serosanguinous drainage, ROM improving, pt able to use left hand and finger to hold breathing treatment NEUROLOGICAL: Cranial nerves II-XII grossly intact. Normal speech. PSYCHIATRIC: Cooperative. Good eye contact. Appropriate mood and affect. SKIN: Dressing clean dry and intact on right buttock Laboratory Results - last 24 hr 06/28/18 06/28/18 06/29/18 10:40 10:40 06:15 WBC 7.6 RBC 3.74 Hgb 11.0 Hct 34.1 MCV 91.4 MCH 29.4 MCHC 32.2 RDW 13.8 Plt Count 292 MPV 8.7 Sodium Potassium Chloride Carbon Dioxide Anion Gap BUN Creatinine Creat Clearance w eGFR Random Glucose Calcium Phosphorus Magnesium Random Vancomycin 12.9 L Vancomycin Pre-Dose Cancelled 06/29/18 06:15 WBC RBC Hgb Hct MCV MCH MCHC RDW Plt Count MPV Sodium 141 Potassium 4.5 Chloride 106 Carbon Dioxide 28 Anion Gap 7 L BUN 10 Creatinine 0.6 Creat Clearance w eGFR > 60 Random Glucose 108 H Calcium 8.9 Phosphorus 3.9 Magnesium 2.5 H Random Vancomycin Vancomycin Pre-Dose Active Medications Generic Name Dose Route Start Last Admin Trade Name Freq PRN Reason Stop Dose Admin Albuterol/Ipratropium 1 amp 06/29/18 08:00 06/29/18 07:42 Duoneb - NEB 1 amp RQID [facility] Administration Enoxaparin Sodium 40 mg 06/29/18 10:00 Lovenox - SQ DAILY [facility] Vancomycin HCl 1,250 mg/ 250 mls @ 166.667 mls/hr 06/29/18 09:30 Dextrose IVPB BID@0930,2130 [facility] Protocol Ketorolac Tromethamine 30 mg 06/29/18 05:18 Toradol Injection - IVPUSH 07/01/18 15:44 Q6H PRN PAIN LEVEL 7 - 10 Lactobacillus Acidophilus 1 tab 06/29/18 10:00 Bacid - PO DAILY [facility] Morphine Sulfate 4 mg 06/29/18 05:18 Morphine Sulfate IVPUSH Q4H PRN PAIN LEVEL 7 - 10 Oxycodone HCl 10 mg 06/29/18 04:40 Roxicodone - PO Q4H PRN PAIN LEVEL 6-10 Valsartan 320 mg 06/29/18 22:00 Diovan - PO [facility] ASSESSMENT/PLAN: 62 Female with PMH of HTN was sent to the ED by her PCP and admitted for abscess on the 2nd digit of her left hand and right buttock Left 2nd Digit Cellulitis/Abscess, also noted lesion/abscess on right buttock -I&D performed in ED -Xray not concerning for Osteo -Surgery consultation appreciated -s/p Bedside I&D performed by Dr. Knight -s/p sharp surgical debridement of pilonidal abscess -Wound care/dressing per surgery -Vanc/Zosyn Day 5 -Vanc trough noted 12.9 -Pt with recent history of MRSA abscess -Wound cultures from 2nd digit MRSA +, sensitive to Vanco -HIV negative -A1C 6.6, pt without known hx of diabetes -ID consult appreciated -Likely DC in AM, with Bactrim DM PO BID for 7-10 days Elevated A1C -Pt without known history of Diabetes -A1C 6.6% meets criteria for NIDDM as pt will not require insulin at this time -Pt will need outpatient follow up with PCP for car varnisher management of glucose control -Diabetic Sodium controlled diet Morbid Obesity -Will retirement plan counselor pt about weight loss -Dietary consult for pt counseling -Consider bariatric surgery consult on discharge HTN -Diovan 320 mg PO HS DVT Prophylaxis -Lovenox 40 mg SQ Daily, hold for OR FEN -Fluids: none -Electrolytes: No electrolyte abnormalities, BMP in AM -Nutrition: Diabetic Sodium Diet Disposition Med/Surg Visit type - Emergency Visit Emergency Visit: Yes ED Registration Date: 06/25/18 Care time: The patient presented to the Emergency Department on the above date and was hospitalized for further evaluation of their emergent condition. - New Patient This patient is new to me today: No - Critical Care Critical Care patient: No
[2018-06-29] MEDS ORDERED: PT OWN MED DRAWER 7, Y5N ONE (10:37)
[2018-06-29] MEDS: VANCOMYCIN 1,250 MG in DEXTROSE 5%-WATER - 250 ML IVPB SCH ×2 (10:40→20:44)
[2018-06-29] MEDS: ENOXAPARIN NA (PORCINE) 40 MG/0.4 ML DISP.SYRIN SQ SCH (10:41)
[2018-06-29] MEDS: LACTOBACILLUS ACIDOPHILUS 1 TABLET PO SCH (10:41)
--- NOTE | 2018-06-29 11:19 | PN ---
Progress Note, Physician Chief Complaint: left index finger infection History of Present Illness: 62yo RHD PMH HTN, obesity was sent to the ED by her PCP for a non-healing ulcer on her Left 2nd digit and pilobnidal area. Patient states she first noticed this wound last , but has no idea how she got it. She reports improved pain at each of the sites. - Current Medication List Current Medications: Active Medications Albuterol/Ipratropium (Duoneb -) 1 amp NEB RQID [facility] Last Admin: 06/29/18 07:42 Dose: 1 amp Enoxaparin Sodium (Lovenox -) 40 mg SQ DAILY [facility] Last Admin: 06/29/18 10:41 Dose: 40 mg Vancomycin HCl 1,250 mg/ (Dextrose) 250 mls @ 166.667 mls/hr IVPB BID@0930, 2130 [facility]; Protocol Last Admin: 06/29/18 10:40 Dose: 166.667 mls/hr Ketorolac Tromethamine (Toradol Injection -) 30 mg IVPUSH Q6H PRN PRN Reason: PAIN LEVEL 7 - 10 Stop: 07/01/18 15:44 Lactobacillus Acidophilus (Bacid -) 1 tab PO DAILY [facility] Last Admin: 06/29/18 10:41 Dose: 1 tab Morphine Sulfate (Morphine Sulfate) 4 mg IVPUSH Q4H PRN PRN Reason: PAIN LEVEL 7 - 10 Oxycodone HCl (Roxicodone -) 10 mg PO Q4H PRN PRN Reason: PAIN LEVEL 6-10 Valsartan (Diovan -) 320 mg PO [facility] - Objective Vital Signs: Vital Signs Temperature 98.7 F 06/29/18 09:07 Pulse Rate 67 06/29/18 09:07 Respiratory Rate 18 06/29/18 09:07 Blood Pressure 133/88 06/29/18 09:07 O2 Sat by Pulse Oximetry (%) 98 06/29/18 06:33 Vital Signs Period Temp Pulse Resp BP Sys/Multani Pulse Ox Last 24 Hr 97.7 F-98.7 F 56-67 14-20 97-133/46-88 96-100 Constitutional: Yes: Well Nourished, No Distress, Calm Eyes: Yes: Conjunctiva Clear, EOM Intact HENT: Yes: Atraumatic, Normocephalic Neck: Yes: Supple, Trachea Midline Cardiovascular: Yes: Regular Rate and Rhythm, S1, S2 Respiratory: Yes: Regular, CTA Bilaterally Gastrointestinal: Yes: Normal Bowel Sounds, Soft, Abdomen, Obese, Tenderness ...Rectal Exam: Yes: Deferred Genitourinary: No: CVA Tenderness - Left, CVA Tenderness - Right Musculoskeletal: No: Muscle Pain, Muscle Weakness Extremities: No: Cool, Cyanosis Edema: No Peripheral Pulses WNL: Yes Peripheral Pulses: Left Radial: 2+, Right Radial: 2+, Left Doralis Pedis: 2+, Right Dorsalis Pedis: 2+ Integumentary: No: Jaundice, Pressure Ulcer, Rash Wound/Incision: Yes: Clean/Dry, Well Approximated, Dressing Dry and Intact, Dressing Removed Neurological: Yes: Alert, Oriented Psychiatric: Yes: Alert, Oriented Labs: CBC, BMP 06/29/18 06:15 06/29/18 06:15 Problem List - Problems (1) Abscess of left index finger Assessment/Plan: 62 you female MMP Left index finger abscess PPD#2 s/p I&D of left index finger abscess POD#0 s/p I&D of pilonidal/ right glutea abscess Local wound care Arrange for D/C alyse [facility] on MWF Dressing instructions in orders optimize antibiotic therapy f/u deep wound cultures Physical therapy eval will follow Code(s): L02.512 - CUTANEOUS ABSCESS OF LEFT HAND (2) HTN (hypertension) Code(s): I10 - ESSENTIAL (PRIMARY) HYPERTENSION Qualifiers: Hypertension type: essential hypertension Qualified Code(s): I10 - Essential (primary) hypertension (3) Obesity (BMI 30-39.9) Code(s): E66.9 - OBESITY, UNSPECIFIED (4) Lactic acidosis Code(s): E87.2 - ACIDOSIS (5) Gastritis Code(s): K29.70 - GASTRITIS, UNSPECIFIED, WITHOUT BLEEDING Qualifiers: Gastritis type: atrophic Gastritis bleeding: without bleeding Qualified Code(s): K29.40 - Chronic atrophic gastritis without bleeding (6) Neuropathic pain of both feet Code(s): G62.9 - POLYNEUROPATHY, UNSPECIFIED
--- NOTE | 2018-06-29 12:01 | PN ---
Progress Note, Physician History of Present Illness: S/P I&D finger, R gluteal soft tissue abscess No c/o pain Temps down Afebrile WBC improved WNL Wound c/s MRSA - Current Medication List Current Medications: Active Medications Albuterol/Ipratropium (Duoneb -) 1 amp NEB RQID [facility] Last Admin: 06/29/18 11:23 Dose: 1 amp Enoxaparin Sodium (Lovenox -) 40 mg SQ DAILY [facility] Last Admin: 06/29/18 10:41 Dose: 40 mg Vancomycin HCl 1,250 mg/ (Dextrose) 250 mls @ 166.667 mls/hr IVPB BID@0930, 2130 [facility]; Protocol Last Admin: 06/29/18 10:40 Dose: 166.667 mls/hr Ketorolac Tromethamine (Toradol Injection -) 30 mg IVPUSH Q6H PRN PRN Reason: PAIN LEVEL 7 - 10 Stop: 07/01/18 15:44 Lactobacillus Acidophilus (Bacid -) 1 tab PO DAILY [facility] Last Admin: 06/29/18 10:41 Dose: 1 tab Morphine Sulfate (Morphine Sulfate) 4 mg IVPUSH Q4H PRN PRN Reason: PAIN LEVEL 7 - 10 Oxycodone HCl (Roxicodone -) 10 mg PO Q4H PRN PRN Reason: PAIN LEVEL 6-10 Valsartan (Diovan -) 320 mg PO [facility] - Objective Vital Signs: Vital Signs Temperature 98.7 F 06/29/18 09:07 Pulse Rate 67 06/29/18 09:07 Respiratory Rate 18 06/29/18 09:07 Blood Pressure 133/88 06/29/18 09:07 O2 Sat by Pulse Oximetry (%) 98 06/29/18 06:33 Constitutional: Yes: No Distress, Obese Cardiovascular: Yes: Regular Rate and Rhythm, S1, S2 Respiratory: Yes: CTA Bilaterally Gastrointestinal: Yes: Normal Bowel Sounds, Soft, Abdomen, Obese. No: Tenderness Extremities: Yes: Other (index finger incisional wound no drainage. Decreased swelling.) Integumentary: Yes: Other (R gluteal wound with packing in place, slight surrounding induration) Labs: CBC, BMP 06/29/18 06:15 06/29/18 06:15 Assessment/Plan L index finger soft tissue abscess s/p I&D +MRSA R gluteal abscess s/p I&D Fever/ leukocytosis- resolved Lactic acidosis- resolved When cleared for discharge by surgery, substitute Bactrim DS po bid x 7-10d
--- NOTE | 2018-06-29 16:40 | PN ---
Teaching Attending Note Name of Resident: Blaze Laguna ATTENDING PHYSICIAN STATEMENT I saw and evaluated the patient. I reviewed the resident's note and discussed the case with the resident. I agree with the resident's findings and plan as documented. SUBJECTIVE: states hand pain has improved. slight discomfort in buttock from I& D. denies Cp, SOB, fever, chills, N/V/C/D OBJECTIVE: Last Vital Signs Temp Pulse Resp BP Pulse Ox 98.1 F 66 16 106/51 L 98 06/29/18 14:38 06/29/18 14:38 06/29/18 14:38 06/29/18 14:38 06/29/18 06:33 General NAD Extremities L hand 2nd digit with incision, no active drainage. packing removed. no tenderness or erythema surrounding incision. improved mobility. ASSESSMENT AND PLAN: 62yo F wtih PMH HTN, morbid obesity and past infections iwth MRSA presented to the ER with L finger pain with assoc fever and chills 1. Sepsis due to finger abscess- s/p I&D 06/25 in the ER. repeat I&D 06/26. Wcx has presumed MRSA. on vanco. can likely switch to po tomorrow. plastics and ID on board. contact precautions. HIV negative 2. Buttock abscess-s/p I&D 06/29. on vanco. 3. DM- newly diagnosed. A1c 6.6. dietary education with mixed crop and livestock farm worker. will need repeat A1c in 3 months to determine if medications are needed 4. lactic acidosis- due to infection. now resolved 5. HTN- controlled. cont home medications 6. Morbid obesity- BMI 46. bariatric referal as outpatient 7. DVT ppx- lovenox 8. anticipate discharge in next 24H will liekly be able to switch IV abx to po
[2018-06-29] MEDS ORDERED: VALSARTAN 160 MG TABLET (UD) PO SCH (22:00)
[2018-06-30] MEDS: ALBUTEROL SO4 2.5/IPRATROPIUM 0.5 INH SOL 3 ML VIAL.NEB. NEB SCH ×2 (07:51→11:55)
--- NOTE | 2018-06-30 08:56 | DS ---
Physical Exam: SUBJECTIVE: Patient seen and examined. asymptomatic. states she has no pain in her finger or buttock. good mobility of her finger. denies Cp, SOB< fever, chills, N/V/C/D OBJECTIVE: Vital Signs Period Temp Pulse Resp BP Sys/Multani Pulse Ox Last 24 Hr 98.1 F-98.7 F 63-67 16-20 106-133/51-88 98 PHYSICAL EXAM GENERAL: The patient is awake, alert, and fully oriented, in no acute distress. HEAD: Normal with no signs of trauma. EYES: PERRL, extraocular movements intact, sclera anicteric, conjunctiva clear. ENT: Ears normal, nares patent, oropharynx clear without exudates, moist mucous membranes. NECK: Trachea midline, full range of motion, supple. LUNGS: Breath sounds equal, clear to auscultation bilaterally, no wheezes, no crackles, no accessory muscle use. HEART: Regular rate and rhythm, S1, S2 without murmur, rub or gallop. ABDOMEN: Soft, nontender, nondistended, normoactive bowel sounds, no guarding, no rebound, no hepatosplenomegaly, no masses. morbid obese EXTREMITIES: 2+ pulses, warm, well-perfused, no edema. NEUROLOGICAL: Cranial nerves II through XII grossly intact. Normal speech, gait not observed. PSYCH: Normal mood, normal affect. SKIN: L hand 2nd digit with surgical incision 1cm wth good granulation tissue no active drainage. good mobility of the hand, able to make a complete fist. R buttock wtih soaked gauze. good granulation tissue. darkened tissue around the border. minimal swelling. no active drainage LABS HOSPITAL COURSE: Date of Admission:06/25/18 Date of Discharge: 06/30/18 Admitting diagnosis: L hand finger abscess R pilonidal abscess +MRSA Pre hospital course 62F w/ pmhx of HTN was sent to the ED by her PCP for a nonhealing ulcer on her L hand, 2nd digit. Pt states she first noticed this wound last , but has no idea how she got it. She denies trauma to the area. Since , she states she had not taken anything for it and treated the wound with dressings. She denies fever/chills, faith/d, n/v, sob, chest pain, abd pain, urinary/bowel symptoms, blood in urine/stool, peripheral edema, problems walking. Of note she was recently treated for an abdominal abscess back in 02/2018 with wound cx that was +MRSA. ER course was notable for: (1) WBC 13.6, U/A showed 1+ Pro, 1+ Glu, Trace Ket, 4 Urobilinogen, Trace LE, WBC 14, many brittney/mucus, lac 2.6 (2) Vanc 1 gm, Zosyn 4.5 gm, NS 1000mL, Toradol 30 mg IVP, Tylenol 650 mg PO given (3) Subsequent hospital course Admitted to medicine. started on vanco/zosyn.Finger abscess drained in the ER but continued to ahve copious purulent drainage. Hand surgeon called and repeated I&D. +MRSA. also noted to have pilonidal abscess on R buttock also I&D in the OR. continued on vanco IV day 5. d/c on bactrim for 10days. plan to f/u with surgeon next week. course complicated by newly diagnosed DM. lifestyle modifications discussed will need repeat A1c in 3 months Minutes to complete discharge: 40 Discharge Summary Reason For Visit: CELLULITIS & ABSCESS OF FINGER Current Active Problems Abscess of left index finger (Acute) Cellulitis (Acute) Cellulitis and abscess of finger, unspecified (Acute) HTN (hypertension) (Acute) Lactic acidosis (Acute) Obesity (BMI 30-39.9) (Acute) Pilonidal abscess (Acute) - Instructions Diet, Activity, Other Instructions: Postoperative instructions: You had an incision and drainage of finger and back by Dr. Federico Knight of [facility]. Dressings: right buttock: moist to dry with 4x4 gauze and tape left index finger: xeroform, 4x4 gauze and tape Activity: Resume your usual activities gradually, but no heavy exertion or lifting more than 10-15 pounds for 4-6 weeks. Eat lightly at first, but advance to your usual diet as tolerated. Pain: For pain, you may use and alternate Tylenol (acetaminophen) 1-2 pills and/ or ibuprofen 200 mg (1-3 pills) every 6 hours each as needed; this means that you can take one OR the other at 3-hour intervals. If you are prescribed a Tylenol/narcotic combination for severe pain, use it instead of plain Tylenol as needed and switch back when your pain starts decreasing. Do not take more than 4000 mg of acetaminophen in a day. Take medications as prescribed or indicated on the labeling. Follow-up: Call Dr. Knight' office at [phone] to make your postop appointment (Monday in approximately 2 weeks after surgery as advised). Clinic is held in the Diagnostic [facility] on the first floor of [facility]. Call the office if you have: * increasing pain not responsive to pain medication * fever of 101F or higher * vomiting * unusual or increasing bleeding or drainage from wounds * increasing redness or swelling at wound sites * inability to urinate Also, see your primary medical doctor within 1-2 weeks. Referrals: Miguel Jama MD [Primary Care Provider] - - Home Medications Comprehensive Discharge Medication List: Ambulatory Orders Valsartan [Diovan] 320 mg PO HS 04/17/12 This patient is new to me today: No Emergency Visit: Yes ED Registration Date: 06/25/18 Care time: The patient presented to the Emergency Department on the above date and was hospitalized for further evaluation of their emergent condition. Critical Care patient: No - Discharge Referral [facility]erred to [facility] Med P.C.: No
[2018-06-30 10:13] VITALS: BP 136/54; PULSE 74; TEMP 99.1
[2018-06-30] MEDS: VANCOMYCIN 1,250 MG in DEXTROSE 5%-WATER - 250 ML IVPB SCH (10:37)
[2018-06-30] MEDS: ENOXAPARIN NA (PORCINE) 40 MG/0.4 ML DISP.SYRIN SQ SCH (10:37)
[2018-06-30] MEDS: LACTOBACILLUS ACIDOPHILUS 1 TABLET PO SCH (10:37)
--- NOTE | 2018-07-03 16:57 | PATH ---
Surgical Pathology Report Patient Name: ISABELA COMER Med. Rec. #: [id number] /Age/Gender: 1955 (Age: 62) / F Account: [id number] Location: [facility] MED/SURG Taken: 06/29/2018 Received: 06/29/2018 Reported: 07/03/2018 Physicians: Girma Conklin M.D. Specimen(s) Received PILONIDAL LACBUNCLE Clinical History Pilonidal abscess Final Diagnosis BACK, PILONIDAL CARBUNCLE, EXCISION: SKIN AND UNDERLYING SOFT TISSUE WITH MARKED ACUTE AND CHRONIC INFLAMMATION, ULCERATION, AND ABSCESS FORMATION. Electronically Signed Mera Mccall M.D. Gross Description Received in formalin labeled "pilonidal carbuncle," is a 3.5 x 2.5 cm escobedo, ovoid, unoriented portion of skin excised to a depth of 1.2 cm. The epidermal surface displays a central ulcerated lesion. The underlying soft tissue is necrotic. A promotions representative section is submitted in one cassette. /06/29/2018 saudi/06/29/2018
== END 2018-06-30 13:59 | disposition home health service (06) | DRG 854 ==
LOC: JER 15:27 → JERBED 23:15 → UNDOADMIN 23:57 → JERBED 23:57 → J8W 06-26 06:58
PROVIDERS: ADMIT Internal Medicine; ATTEND Internal Medicine
PROC: 0J9K0ZZ Drainage of Left Hand Subcutaneous Tissue and Fascia, Open Approach (ICD-10-PCS; 2018-06-25)
PROC: 0J9K0ZZ Drainage of Left Hand Subcutaneous Tissue and Fascia, Open Approach (ICD-10-PCS; 2018-06-26)
PROC: 0JB90ZZ Excision of Buttock Subcutaneous Tissue and Fascia, Open Approach (ICD-10-PCS; principal; 2018-06-29)
DX: A41.9 Sepsis, unspecified organism (principal); L02.512 Cutaneous abscess of left hand; L05.01 Pilonidal cyst with abscess; E87.2 Acidosis; Z68.42 Body mass index [BMI] 45.0-49.9, adult; I10 Essential (primary) hypertension; A49.02 Methicillin resistant Staphylococcus aureus infection, unspecified site; E66.01 Morbid (severe) obesity due to excess calories; D72.829 Elevated white blood cell count, unspecified; G62.9 Polyneuropathy, unspecified; E88.09 Other disorders of plasma-protein metabolism, not elsewhere classified
CPT/HCPCS: 36415; 73140-TC-LT-FY; 80048; 80053; 81003; 81015; 83036; 83605; 83735; 84100; 84484; 85025; 85027; 87040; 87070; 87086; 87186; 87205; 87389; 88304-TC; 93005; 93010; 94640; 94760; 97116-GP; 97161-GP; 99284-25; G0480; J7030

== ENCOUNTER 2020-03-24 12:31 | Emergency (ER) | payer BC, OTHER ==
[2020-03-24 12:47] VITALS: TEMP 98.5; BMI 32.3
--- NOTE | 2020-03-24 12:52 | PDOC ---
Rapid Medical Evaluation Chief Complaint: CVA/TIA Time Seen by Provider: 03/24/20 12:46 Medical Evaluation: Allergies Allergy/AdvReac Type Severity Reaction Status Date / Time No Known Allergies Allergy Verified 06/25/18 15:31 Vital Signs Temp Pulse Resp BP Pulse Ox 98.5 F 79 16 129/48 L 99 03/24/20 12:44 03/24/20 12:44 03/24/20 12:44 03/24/20 12:44 03/24/20 12:44 03/24/20 12:49 CC: left arm/ leg numbness and tingling for months, 3 days of left temporal numbness and eye tearing. + throbbing sensation to left temporal x days intermittently Exam: 5/5 strength to upper and lower extremities, no facial droop or decreased nasolabial fold, full expressions yas Plan: labs, head ct
--- NOTE | 2020-03-24 13:02 | PDOC ---
History of Present Illness - General Chief Complaint: CVA/TIA Stated Complaint: LT SIDE NUMBNESS Time Seen by Provider: 03/24/20 12:46 History Source: Patient Exam Limitations: No Limitations - History of Present Illness Initial Comments: 03/24/20 13:01 HPI: 64yo F PMH HTN presenting with 3 day exacerbation of her chronic intermittent hand and foot numbness. Went to bed Monday night at midnight feeling in her USOH, awoke Monday morning with bilateral hand numbness L > R, and left foot numbness. Also complaining of generalized weakness, more so in left hand/foot. Denies dropping anything or any difficulty with her ADLs. Also endorses increase lacrimation several days ago. Walks unassisted with ease. Denies chest pain, SOB, fevers, chills, nausea, vomiting, urinary symptoms, cough, sore throat, visual changes. Denies concerns with memory, speaking, or otherwise. Reports she had a left sided headache, not bothering her at present. Patient reports being told previously that she may have carpal tunnel syndrome of the left hand. All: NKDA PMH: HTN PSH: R knee surgery, BTL tPA Exclusion checklist 3-4.5h - Time Elapsed Date last known well: 03/20/20 Time last known well: 23:59 Elaspsed time: 3 Day(s) and 14 Hour(s) and 40 Minutes - Thrombolytic Therapy Candidate Is patient eligible for thrombolytic therapy: No - Ineligibility reason(s) Reasons No tPA given: Outside of window - delayed arrival NIH Stroke Scale - Last Known Well Date/Time & Onset Date Last Known Well: 03/20/20 Time Last Known Well: 23:59 - Initial Evaluation Level of consciousness: Alert Ask patient the month and their age: Answers both correctly Ask patient to open & close eyes; make fist and let go: Obeys both correctly Best gaze (horizontal eye movement): Normal Visual field testing: No visual field loss Facial paresis (Show teeth/raise eyebrows/close eyes tight): Normal symmetrical movement Motor Function: Left Arm: Normal Motor Function: Right Arm: Normal (extends arm 90 (or 45) degrees for 10 seconds without drift Motor Function: Left Leg: Normal (extends leg 30 degrees for 5 seconds without drift) Motor Function: Right Leg: Normal (extends leg 30 degrees for 5 seconds without drift) Limb Ataxia: No ataxia Sensory(Use pinprick test arms,legs,trunk,face/side to side): Normal Best language (Describe picture, name items, read sentences): No Aphasia Dysarthria (read several words): Normal articulation Extinction and Inattention: No abnormality - Total Score NIH Stroke Scale Score: 0 Past History - Travel History Traveled outside of the country in the last 30 days: No Close contact w/someone who was outside of country & ill: No - Medical History Allergies/Adverse Reactions: Allergies Allergy/AdvReac Type Severity Reaction Status Date / Time No Known Allergies Allergy Verified 06/25/18 15:31 Home Medications: Ambulatory Orders Valsartan [Diovan] 320 mg PO HS 04/17/12 Lactobacillus Acidophilus [Bacid -] 1 tab PO DAILY #30 tab 06/30/18 Sulfamethoxazole/Trimethoprim [Bactrim Ds -] 1 tab PO BID #20 tablet 06/30/18 Anemia: No Asthma: No Cancer: No Cardiac Disorders: No CVA: No COPD: No CHF: No Dementia: No Diabetes: No GI Disorders: No Disorders: No HTN: Yes Hypercholesterolemia: No Liver Disease: No Seizures: No Thyroid Disease: No - Surgical History Abdominal Surgery: No Appendectomy: No Cardiac Surgery: No Cholecystectomy: No Lung Surgery: No Neurologic Surgery: No Orthopedic Surgery: Yes (Right knee surgery 2 yrs ago) - Immunization History Td Vaccination: No Immunization Up to Date: No - Psycho-Social/Smoking History Smoking Status: No Smoking History: Never smoked Have you smoked in the past 12 months: No Number of Cigarettes Smoked Daily: 0 Information on smoking cessation initiated: No - Substance Abuse Hx (Audit-C & DAST Scrn) How often the patient has a drink containing alcohol: Never Score: In Men: 4 or > Positive; In Women: 3 or > Positive: 0 Screen Result (Pos requires Nsg. Audit-10AR): Negative In the last yr the pt used illegal drug/Rx for NonMed reason: No Score: Yes response is considered Positive: 0 Screen Result (Positive result requires Nsg. DAST-10): Negative Review of Systems - Review of Systems Able to Perform ROS?: Yes Is the patient limited [place]ib[place]ian proficient: Yes Constitutional: Yes: Weakness. No: Chills, Fever HEENTM: No: Nose Pain, Nose Congestion Respiratory: No: Cough, Shortness of Breath, Wheezing Cardiac (ROS): Yes: Edema (chronic, bilateral, on lasix). No: Chest Pain, Lightheadedness, Palpitations, Syncope, Chest Tightness ABD/GI: No: Diarrhea, Nausea, Poor Appetite, Poor Fluid Intake, Vomiting : No: Dysuria, Discharge, Frequency Musculoskeletal: No: Back Pain, Muscle Pain, Muscle Weakness Integumentary: No: Pruritus, Rash Neurological: No: Headache, Numbness, Tingling, Weakness Psychiatric: No: Stressors, Change in Appetite Endocrine: No: Increased Thirst, Increased Urine Hematologic/Lymphatic: No: Anemia, Blood Clots, Easy Bleeding All Other Systems: Reviewed and Negative *Physical Exam - Vital Signs Last Vital Signs Temp Pulse Resp BP Pulse Ox 98.5 F 79 16 129/48 L 99 03/24/20 12:44 03/24/20 12:44 03/24/20 12:44 03/24/20 12:44 03/24/20 12:44 - Physical Exam 03/24/20 14:10 Vitals reviewed, AFVSS GEN: Well appearing, obese, appears stated age, NAD, comfortable. AAOx3. HEENT: NCAT, EOMI, PERRL. Sclera anicteric, non-injected. No facial asymmetry, non-tender face / sinuses. Moist mucous membranes. Normal voice. Trachea midline. CV: RRR, S1/S2, no murmurs / rubs / gallops appreciated. LUNG: CTABL, normal work of breathing. No wheezes, rales, rhonchi. No cough. Speaking full sentences. GI: Soft, NTND, +BS, no guarding, no rebound. No masses. EXTREMITIES: 2+ distal pulses. No clubbing / cyanosis. +Edema 2+ to knees bilaterally. No gross deformity in any extremity. SKIN: Warm, dry, no rashes appreciated, non-jaundiced. PSYCH: Normal mood and affect. Cooperative and appropriate. NEURO: CN grossly intact. Moving all extremities well. Normal strength and sensation grossly Full Neuro: Strength 5+ biceps, triceps, intrinsic hand muscles, hip flexors / extensors / foot dorsiflexion / plantarflexion Sensation normal throughout to light touch Reflexes not assessed Romberg negative Prnetw-huhy-fkabyc and heel-yanes normal (+No dysmetria) Rapid alternating movements normal (No dysdiadokinesis) Pronator drift not assessed Gait normal Cranial nerves: CN 1: Not assessed CN 2: Normal visual cabral and acuity CN 3/4/6: EOMI CN 5: Normal facial sensation CN 7: Normal facial movement CN 8: Symmetric hearing soft sounds CN 9: Uvula midline and normal articulation CN 10: Uvula midline and normal articulation CN 11: Normal shrug / head turn strength CN 12: Normal tongue movement A&Ox3, normal remote and recent recall. 03/24/20 14:12 ED Treatment Course - LABORATORY CBC & Chemistry Diagram: 03/24/20 13:14 03/24/20 13:14 Medical Decision Making - Medical Decision Making 03/24/20 14:00 64yo F pmh HTN presenting with acute on chronic left hand numbness and tingling. History notable for prior episodes with reported carpal tunnel syndrome. Exam notable for normal neuro exam with 5+ strength bilaterally, no sensory deficits noted, stable vitals. DDX: Carpal tunnel, neuropathy, electrolyte derangements, unlikely TIA/CVA given chronic intermittent nature and normal neuro exam. - NCHCT - CBC, CMP, Cardiac, Mg - EKG, CXR 03/24/20 14:32 Labs unremarkable NCHCT negative EKG: NSR, 63bpm, normal axis, normal intervals, no ischemic changes Dispo: Home with neuro follow-up Discharge - Discharge Information Problems reviewed: Yes Clinical Impression/Diagnosis: Numbness and tingling in left hand Edema Qualifiers: Edema type: localized Qualified Code(s): R60.0 - Localized edema Condition: Good Disposition: HOME - Admission No - Follow up/Referral Referrals: Hay Barajas MD [Staff Physician] - - Patient Discharge Instructions Additional Instructions: You were seen and evaluated for left hand and foot numbness. Your workup was negative for life-threatening causes. Please continue your home medications as directed. Follow up with Dr. Barajas (neurology) within the next week for further evaluation. Also please discuss your right knee concerns with your PCP and orthopaedic surgeon. Return to the ED for any new or worsening symptoms. - Post Discharge Activity
[2020-03-24 13:23] LABS: EOS % 0.9 % (0-4.5); HEMATOCRIT 39.8 % (32.4-45.2); HEMOGLOBIN 13.3 GM/dL (10.7-15.3); LYMPH % 18.2 % (8-40); MCH 30.5 pg (25.7-33.7); MCHC 33.4 g/dl (32.0-36.0); MEAN CELL VOLUME 91.3 fl (80-96); MEAN PLT VOLUME 9.2 fl (7.5-11.1); MONO % 6.2 % (3.8-10.2); NEUT % 74.1 % (42.8-82.8); PLATELET COUNT 224 K/MM3 (134-434); RBC 4.35 M/mm3 (3.60-5.2); WHITE BLOOD COUNT 6.7 K/mm3 (4.0-10.0)
[2020-03-24 13:24] LABS: BASO % 0.6 % (0-2.0)
--- NOTE | 2020-03-24 13:34 | PDOC ---
Attending Attestation - Resident Resident Name: Adán Ag - ED Attending Attestation I have performed the following: I have examined & evaluated the patient, The case was reviewed & discussed with the resident, I agree w/resident's findings & plan, Exceptions are as noted - HPI HPI: 03/24/20 13:30 Patient is a 64YOF with h/o HTN and heart murmur, on Lasix chronically, who p/w intermittent numbness and tingling diffusely in all extremities, worse in the left side, and mostly in the hand and foot. She notes this has been happening intermittently chronically, but this time it has been present for about 4 days constantly. She additionally notes occasional weakness on the left side which has been intermittent chronically as well, but this has not limited her in any way (she has not been dropping items or had difficulty functioning). She denies any recent falls, CASH, neck pain, chest pain, abdominal pain, back pain, vision issues, difficulty swallowing or speaking, vertigo, lightheadedness, or other symptoms. - Physicial Exam PE: 03/24/20 13:00 GENERAL: well-appearing, A/Ox4, no distress, answers questions appropriately HEENT: PERRLA, EOMI, moist mucous membranes NECK/BACK: no midline ttp, no spinal stepoff or deformity, no hematoma, full ROM, neck supple CARDIOVASCULAR: regular rate/rhythm, no MGR, strong peripheral pulses, capillary refill <2 seconds, extremities wwp, no edema LUNGS/RESPIRATORY: no respiratory distress, CTAB GI/ABDOMEN: symmetric igxo-cf-urzy, normoactive BS, soft, no ttp, no midline pulsatile masses : no CVA tenderness MSK/EXTREMITIES: no muscle atrophy, no acute deformity SKIN: warm and dry, no pallor, no jaundice, no rash, no pathologic-appearing bruising, no skin breakdown, no cuts, no lesions NEUROLOGICAL: NIHSS 0, GCS 15, CN II-XII grossly intact, 5/5 strength proximally and distally, no facial droop - Medical Decision Making 64YOF p/w stated numbness and tingling which has been ongoing chronically but is worse over the past 4 days. NIHSS is 0 at presentation and onset was chronic but worsened 4 days ago, code gonsales is not indicated. Initial Vital Signs Temp Pulse Resp BP Pulse Ox 98.5 F 79 16 129/48 L 99 03/24/20 12:44 03/24/20 12:44 03/24/20 12:44 03/24/20 12:44 03/24/20 12:44 DDX IBNLT: possible CVA/TIA, electrolyte derangement, hypoglycemia, etc. W/U ordered: Labs as noted below, EKG, CTH EKG: Reviewed; results as noted in ECG Review section. Laboratory Tests 03/24/20 03/24/20 13:14 13:14 WBC 6.7 RBC 4.35 Hgb 13.3 Hct 39.8 D MCV 91.3 MCH 30.5 MCHC 33.4 RDW 15.0 Plt Count 224 D MPV 9.2 Absolute Neuts (auto) 4.9 Neutrophils % 74.1 Lymphocytes % 18.2 D Monocytes % 6.2 Eosinophils % 0.9 Basophils % 0.6 Nucleated RBC % 0 Sodium 140 Potassium 4.1 Chloride 105 Carbon Dioxide 26 Anion Gap 10 BUN 14.5 Creatinine 0.9 Est GFR (CKD-EPI)AfAm 77.22 Est GFR (CKD-EPI)NonAf 66.63 Random Glucose 222 H Calcium 9.1 Magnesium 2.1 Total Bilirubin 0.3 AST 17 ALT 19 Alkaline Phosphatase 94 Creatine Kinase 117 Troponin I < 0.02 Total Protein 7.[address]/HEAD CT WITHOUT CONTRAST Cranial CT without contrast CLINICAL INFORMATION: left-sided tingling, left facial numbness Multiplanar imaging was performed. Intravenous contrast was not administered. No intracranial hemorrhage is seen. There is no extra-axial fluid collection. No discrete infarct is identified within the limitations of CT. There is no obvious mass lesion on noncontrast imaging. No definite abnormal intracranial attenuation is noted. The ventricles and cisterns appear unremarkable. No calvarial defect is seen. IMPRESSION: No CT evidence of acute intracranial pathology. There has been no definite interval change comparison to a prior CT exam of 04/13/2013. The patient is appropriate for outpatient management. Workup is wnl and she notes no change in her chronic symptoms at this time. Return precautions discussed and discharge procedures completed by resident. Heart Score/ECG Review #1 Sinus rhythm, rate 63, normal axis and intervals, no ischemic changes NIH Stroke Scale - Last Known Well Date/Time & Onset Date Last Known Well: 03/20/20 Time Last Known Well: 23:59 - Initial Evaluation Level of consciousness: Alert Ask patient the month and their age: Answers both correctly Ask patient to open & close eyes; make fist and let go: Obeys both correctly Best gaze (horizontal eye movement): Normal Visual field testing: No visual field loss Facial paresis (Show teeth/raise eyebrows/close eyes tight): Normal symmetrical movement Motor Function: Left Arm: Normal Motor Function: Right Arm: Normal (extends arm 90 (or 45) degrees for 10 seconds without drift Motor Function: Left Leg: Normal (extends leg 30 degrees for 5 seconds without drift) Motor Function: Right Leg: Normal (extends leg 30 degrees for 5 seconds without drift) Limb Ataxia: No ataxia Sensory(Use pinprick test arms,legs,trunk,face/side to side): Normal Best language (Describe picture, name items, read sentences): No Aphasia Dysarthria (read several words): Normal articulation Extinction and Inattention: No abnormality - Total Score NIH Stroke Scale Score: 0 Discharge - Discharge Information Problems reviewed: Yes Clinical Impression/Diagnosis: Numbness and tingling in left hand Edema Qualifiers: Edema type: localized Qualified Code(s): R60.0 - Localized edema Condition: Good Disposition: HOME - Admission No - Follow up/Referral Referrals: Hay Barajas MD [Staff Physician] - - Patient Discharge Instructions Additional Instructions: You were seen and evaluated for left hand and foot numbness. Your workup was negative for life-threatening causes. Please continue your home medications as directed. Follow up with Dr. Barajas (neurology) within the next week for further evaluation. Also please discuss your right knee concerns with your PCP and orthopaedic surgeon. Return to the ED for any new or worsening symptoms. - Post Discharge Activity
[2020-03-24 13:56] LABS: MAGNESIUM 2.1 mg/dL (1.8-2.4)
[2020-03-24 13:57] LABS: ALBUMIN 3.3 g/dl (3.4-5.0); ALK PHOS 94 U/L (45-117); ANION GAP 10 MMOL/L (8-16); BILIRUBIN,TOTAL 0.3 mg/dL (0.2-1); BLOOD UREA NITROGEN 14.5 mg/dL (7-18); CALCIUM 9.1 mg/dL (8.5-10.1); CHLORIDE 105 mmol/L (98-107); CO2 26 mmol/L (21-32); CREATININE 0.9 mg/dL (0.55-1.3); GLUCOSE,RANDOM 222 mg/dL (74-106); POTASSIUM 4.1 mmol/L (3.5-5.1); SGOT/AST 17 U/L (15-37); SGPT/ALT 19 U/L (13-61); SODIUM 140 mmol/L (136-145); TOT PROT 7.1 g/dl (6.4-8.2)
[2020-03-24 14:48] VITALS: BP 128/87; PULSE 92
--- NOTE | 2020-03-24 15:24 | EKG ---
Test Reason : Blood Pressure : / mmHG Vent. Rate : 063 BPM Atrial Rate : 063 BPM P-R Int : 156 ms QRS Dur : 092 ms QT Int : 420 ms P-R-T Axes : 045 -09 043 degrees QTc Int : 429 ms NORMAL SINUS RHYTHM MINIMAL VOLTAGE CRITERIA FOR LVH, MAY BE NORMAL VARIANT NONSPECIFIC ST ABNORMALITY ABNORMAL ECG Confirmed by MD GIOVANNY, BANDAR ([id number]) on 03/24/2020 3:24:12 PM Referred By: Confirmed By:BANDAR BALTAZAR MD
== END 2020-03-24 15:02 | disposition home or self-care (01) ==
LOC: JER 12:31 → SUPCPDRO 12:31 → JER 15:02
DX: R20.2 Paresthesia of skin (principal); R60.0 Localized edema
CPT/HCPCS: 36415; 70450-TC; 80053; 82550; 83735; 84484; 85025; 93005; 93010; 99285-25

== ENCOUNTER 2020-10-31 13:44 | Inpatient (IN) | payer BC ==
[2020-10-31] MEDS ORDERED: ACETAMINOPHEN 1000 MG/100 ML VIAL (NON FORMULARY) IVPB ONE (14:32)
[2020-10-31] MEDS ORDERED: SODIUM CHLORIDE 1,000 ML IV SCH (14:45)
[2020-10-31] MEDS ORDERED: SODIUM CHLORIDE 500 ML IV SCH (14:45)
[2020-10-31] MEDS ORDERED: ACETAMINOPHEN INJECTION 100 ML IVPB ONE (16:00)
[2020-10-31 16:13] LABS: BASO % 0.2 % (0-2.0); HEMATOCRIT 36.6 % (32.4-45.2); HEMOGLOBIN 12.2 GM/dL (10.7-15.3); LYMPH % 32.2 % (8-40); MCH 30.5 pg (25.7-33.7); MCHC 33.4 g/dl (32.0-36.0); MEAN CELL VOLUME 91.3 fl (80-96); MEAN PLT VOLUME 8.6 fl (7.5-11.1); NEUT % 61.6 % (42.8-82.8); PLATELET COUNT 132 K/MM3 (134-434); RDW 14.6 % (11.6-15.6)
[2020-10-31 16:30] LABS: INR 1.19 (0.83-1.09); PROTHROMBIN TIME (PATIENT) 14.6 SEC (9.7-13.0)
[2020-10-31 16:33] LABS: ACTIVATED PTT 33.3 SECONDS (25.2-36.5)
[2020-10-31 16:44] LABS: POTASSIUM 4.1 mmol/L (3.5-5.1)
[2020-10-31 16:47] LABS: BLOOD UREA NITROGEN 29.3 mg/dL (7-18); CALCIUM 8.5 mg/dL (8.5-10.1)
[2020-10-31 16:48] LABS: ALBUMIN 3.1 g/dl (3.4-5.0)
[2020-10-31 16:50] LABS: CREATININE 1.2 mg/dL (0.55-1.3)
[2020-10-31 16:52] LABS: BILIRUBIN,TOTAL 0.5 mg/dL (0.2-1)
[2020-10-31 16:53] LABS: TOT PROT 6.9 g/dl (6.4-8.2)
[2020-10-31 17:16] LABS: EPI CELLS 18 /uL (0-25.1); HYALINE CASTS 1 /uL (0-3.1); PH,URINE 5.5 (5.0-8.0); URINE APPEARANCE CLEAR; URINE BACTERIA 2136 /uL (0-1359); URINE BILIRUBIN NEGATIVE (NEGATIVE); URINE COLOR YELLOW; URINE GLUCOSE (UA) NEGATIVE (NEGATIVE); URINE KETONE NEGATIVE (NEGATIVE); URINE LEUK ESTERASE NEGATIVE (NEGATIVE); URINE NITRITE NEGATIVE (NEGATIVE); URINE PROTEIN 2+ (NEGATIVE); URINE RBC 10 /uL (0-23.9); URINE WBC 10 /uL (0-25.8)
[2020-10-31] MEDS ORDERED: AZITHROMYCIN IVPB 500 MG in DEXTROSE 5%-WATER - 250 ML IVPB ONE (17:19)
[2020-10-31] MEDS ORDERED: AZITHROMYCIN IVPB 500 MG/250 ML BAG IVPB ONE (17:44)
[2020-10-31] MEDS ORDERED: CEFTRIAXONE 1,000 MG in DEXTROSE 5%-WATER - 50 ML IVPB ONE (17:45)
[2020-10-31] MEDS ORDERED: CEFTRIAXONE 1 GM/50 ML BAG ONE (17:49)
[2020-10-31 17:51] LABS: ERYTHROCYTE SEDIMENTATION RATE 72 mm/hr (0-30)
[2020-10-31 18:50] LABS: N-TERMINAL BNP 79.2 pg/ml (5-125)
[2020-10-31 22:57] VITALS: BMI 43.8
[2020-11-01] MEDS: ACETAMINOPHEN 325 MG TABLET (FP) PO PRN ×4 (01:21→21:50)
[2020-11-01] MEDS ORDERED: SODIUM CHLORIDE 1,000 ML IV SCH (08:00)
[2020-11-01] MEDS ORDERED: CASIRIVIMAB (REGN10933) 1,200 MG, IMDEVIMAB (REGN10987) 1,200 MG in SODIUM CHLORIDE 250 ML IVPB ONE (08:55)
[2020-11-01] MEDS: ZINC SULFATE 220 MG CAPSULE (FP) PO SCH ×2 (09:31→21:33)
[2020-11-01] MEDS: ASCORBIC ACID 500 MG TABLET (FP) PO SCH ×2 (09:31→21:33)
[2020-11-01] MEDS: CHOLECALCIFEROL (VIT D3) 1,000 UNIT (25 MCG) TABLET PO SCH (09:31)
[2020-11-01] MEDS: ENOXAPARIN NA (PORCINE) 40 MG/0.4 ML DISP.SYRIN SQ SCH (09:31)
[2020-11-01] MEDS ORDERED: DEXAMETHASONE 4 MG TABLET (FP) PO SCH (10:00)
[2020-11-01] MEDS ORDERED: AZITHROMYCIN IVPB 500 MG/250 ML BAG IVPB SCH (10:00)
[2020-11-01] MEDS ORDERED: CEFTRIAXONE 1 GM in DEXTROSE 5%-WATER - 50 ML IVPB SCH (10:00)
[2020-11-01] MEDS ORDERED: AZITHROMYCIN IVPB 250 MG in DEXTROSE 5%-WATER - 250 ML IVPB SCH (10:00)
[2020-11-01 12:56] LABS: HEMATOCRIT 35.1 % (32.4-45.2); HEMOGLOBIN 11.8 GM/dL (10.7-15.3); MCH 30.3 pg (25.7-33.7); MCHC 33.5 g/dl (32.0-36.0); MEAN CELL VOLUME 90.6 fl (80-96); MEAN PLT VOLUME 9.1 fl (7.5-11.1); PLATELET COUNT 127 K/MM3 (134-434); RBC 3.88 M/mm3 (3.60-5.2); RDW 14.5 % (11.6-15.6); WHITE BLOOD COUNT 4.4 K/mm3 (4.0-10.0)
[2020-11-01 13:01] LABS: POTASSIUM 4.1 mmol/L (3.5-5.1)
[2020-11-01 13:11] LABS: CALCIUM 8.2 mg/dL (8.5-10.1)
[2020-11-01 13:15] LABS: CREATININE 0.9 mg/dL (0.55-1.3)
[2020-11-01] MEDS ORDERED: POLYETHYLENE GLYCOL 3350 119 GM BTL PO ONE (15:13)
[2020-11-01] MEDS ORDERED: ACETAMINOPHEN 1000 MG/100 ML VIAL (NON FORMULARY) IVPB ONE (17:09)
[2020-11-01] MEDS ORDERED: IBUPROFEN 200 MG TABLET PO ONE (23:00)
[2020-11-02] MEDS: ASCORBIC ACID 500 MG TABLET (FP) PO SCH ×2 (09:13→21:01)
[2020-11-02] MEDS: CHOLECALCIFEROL (VIT D3) 1,000 UNIT (25 MCG) TABLET PO SCH (09:14)
[2020-11-02] MEDS: ENOXAPARIN NA (PORCINE) 40 MG/0.4 ML DISP.SYRIN SQ SCH (09:14)
[2020-11-02] MEDS: ZINC SULFATE 220 MG CAPSULE (FP) PO SCH ×2 (09:14→21:02)
[2020-11-02] MEDS: CEFTRIAXONE 1 GM in DEXTROSE 5%-WATER - 50 ML IVPB SCH (09:15)
[2020-11-02] MEDS ORDERED: AZITHROMYCIN IVPB 500 MG/250 ML BAG IVPB ONE (10:00)
[2020-11-02] MEDS ORDERED: SODIUM CHLORIDE 500 ML IV STA (10:05)
[2020-11-02] MEDS: INSULIN SLIDING SCALE (NOVOLOG) 1 VIAL SQ SCH ×3 (11:34→21:01)
[2020-11-02] MEDS ORDERED: ONDANSETRON 4 MG/2 ML VIAL IVPUSH ONE (13:15)
[2020-11-02] MEDS: ACETAMINOPHEN 325 MG TABLET (FP) PO PRN (14:14)
[2020-11-02 15:25] LABS: BASO % 0.1 % (0-2.0); HEMATOCRIT 35.5 % (32.4-45.2); HEMOGLOBIN 12.1 GM/dL (10.7-15.3); MCH 30.3 pg (25.7-33.7); MCHC 33.9 g/dl (32.0-36.0); MEAN CELL VOLUME 89.5 fl (80-96); MEAN PLT VOLUME 9.4 fl (7.5-11.1); MONO % 0.9 % (3.8-10.2); PLATELET COUNT 147 K/MM3 (134-434); RBC 3.97 M/mm3 (3.60-5.2); RDW 14.8 % (11.6-15.6); WHITE BLOOD COUNT 7.6 K/mm3 (4.0-10.0)
[2020-11-02 15:47] LABS: ALBUMIN 2.7 g/dl (3.4-5.0); BLOOD UREA NITROGEN 21.2 mg/dL (7-18); CALCIUM 8.2 mg/dL (8.5-10.1)
[2020-11-02 15:51] LABS: CREATININE 0.9 mg/dL (0.55-1.3); PHOSPHOROUS 1.8 mg/dL (2.5-4.9); TOT PROT 6.5 g/dl (6.4-8.2)
[2020-11-02 15:52] LABS: BILIRUBIN,TOTAL 0.4 mg/dL (0.2-1)
[2020-11-02 17:04] LABS: ANISOCYTOSIS 1+; MACROCYTOSIS 0; PLATELET ESTIMATE DECREASED
[2020-11-03] MEDS: INSULIN SLIDING SCALE (NOVOLOG) 1 VIAL SQ SCH ×4 (06:03→21:02)
[2020-11-03] MEDS ORDERED: DEXTROSE 5%-WATER - 50 ML IVPB ONE (08:43)
[2020-11-03] MEDS ORDERED: cefTRIAXone SODIUM 1 GM VIAL ONE (08:43)
[2020-11-03 08:44] LABS: POTASSIUM 4.5 mmol/L (3.5-5.1)
[2020-11-03 08:47] LABS: CALCIUM 8.4 mg/dL (8.5-10.1)
[2020-11-03 08:48] LABS: ALBUMIN 2.5 g/dl (3.4-5.0); BLOOD UREA NITROGEN 20.6 mg/dL (7-18); MAGNESIUM 2.1 mg/dL (1.8-2.4)
[2020-11-03 08:51] LABS: CREATININE 0.9 mg/dL (0.55-1.3); PHOSPHOROUS 2.7 mg/dL (2.5-4.9)
[2020-11-03 08:52] LABS: BILIRUBIN,TOTAL 0.5 mg/dL (0.2-1); TOT PROT 6.2 g/dl (6.4-8.2)
[2020-11-03 09:16] LABS: HEMOGLOBIN 12.1 GM/dL (10.7-15.3); MCH 30.6 pg (25.7-33.7); MCHC 33.5 g/dl (32.0-36.0); MEAN CELL VOLUME 91.1 fl (80-96); RBC 3.96 M/mm3 (3.60-5.2); RDW 14.8 % (11.6-15.6)
[2020-11-03 09:17] LABS: WHITE BLOOD COUNT 11.9 K/mm3 (4.0-10.0)
[2020-11-03] MEDS ORDERED: PT OWN MED DRAWER 7, Y5N ONE (10:46)
[2020-11-03] MEDS: ENOXAPARIN NA (PORCINE) 40 MG/0.4 ML DISP.SYRIN SQ SCH (10:48)
[2020-11-03] MEDS: ASCORBIC ACID 500 MG TABLET (FP) PO SCH ×2 (10:50→21:03)
[2020-11-03] MEDS: ZINC SULFATE 220 MG CAPSULE (FP) PO SCH ×2 (10:50→21:03)
[2020-11-03] MEDS: CEFTRIAXONE 1 GM in DEXTROSE 5%-WATER - 50 ML IVPB SCH (10:50)
[2020-11-03] MEDS: CHOLECALCIFEROL (VIT D3) 1,000 UNIT (25 MCG) TABLET PO SCH (10:51)
[2020-11-03] MEDS: AZITHROMYCIN IVPB 250 MG in DEXTROSE 5%-WATER - 250 ML IVPB SCH (11:23)
[2020-11-03] MEDS ORDERED: REMDESIVIR 200 MG in SODIUM CHLORIDE 210 ML IVPB ONE (12:00)
[2020-11-03] MEDS: BUDESONIDE/FORMETEROL FUMARATE 160/4.5 mcg INHALER IH SCH ×2 (12:16→21:09)
[2020-11-03] MEDS: ALBUTEROL SO4 HFA INHALER IH SCH ×3 (12:17→21:09)
[2020-11-03] MEDS: DEXAMETHASONE SOD PHOSPHATE 4 MG/1 ML VIAL IVPUSH SCH (12:18)
[2020-11-03 13:11] LABS: PLATELET COUNT 158 K/MM3 (134-434)
[2020-11-03 13:28] LABS: ANISOCYTOSIS 0; MACROCYTOSIS 0; PLATELET ESTIMATE DECREASED
[2020-11-03] MEDS: PANTOPRAZOLE SODIUM 40 MG VIAL IVPUSH SCH (14:45)
[2020-11-03] MEDS ORDERED: INSULIN (NOVOLOG) ASPART 100 UNITS/ML 10ML VIAL ONE (20:52)
[2020-11-03] MEDS ORDERED: MAG HYDROX/AL HYDROX/SIMETH 30 ML UNIT-DOSE CUP PO ONE (21:28)
[2020-11-04] MEDS: INSULIN SLIDING SCALE (NOVOLOG) 1 VIAL SQ SCH ×4 (06:45→21:23)
[2020-11-04 07:52] LABS: BASO % 0.2 % (0-2.0); EOS % 0.1 % (0-4.5); HEMATOCRIT 35.7 % (32.4-45.2); HEMOGLOBIN 12.2 GM/dL (10.7-15.3); LYMPH % 21.4 % (8-40); MCH 30.6 pg (25.7-33.7); MEAN PLT VOLUME 8.9 fl (7.5-11.1); MONO % 6.5 % (3.8-10.2); NEUT % 71.8 % (42.8-82.8); PLATELET COUNT 223 K/MM3 (134-434); RBC 3.97 M/mm3 (3.60-5.2); RDW 14.9 % (11.6-15.6); WHITE BLOOD COUNT 4.5 K/mm3 (4.0-10.0)
[2020-11-04 08:08] LABS: POTASSIUM 5.2 mmol/L (3.5-5.1)
[2020-11-04 08:12] LABS: CALCIUM 8.5 mg/dL (8.5-10.1)
[2020-11-04 08:13] LABS: ALBUMIN 2.5 g/dl (3.4-5.0); BLOOD UREA NITROGEN 20.4 mg/dL (7-18); MAGNESIUM 2.3 mg/dL (1.8-2.4)
[2020-11-04 08:15] LABS: CREATININE 0.8 mg/dL (0.55-1.3)
[2020-11-04 08:16] LABS: PHOSPHOROUS 2.9 mg/dL (2.5-4.9)
[2020-11-04 08:17] LABS: BILIRUBIN,TOTAL 0.4 mg/dL (0.2-1); TOT PROT 6.4 g/dl (6.4-8.2)
[2020-11-04] MEDS ORDERED: DEXTROSE 5%-WATER - 50 ML IVPB ONE (09:05)
[2020-11-04] MEDS ORDERED: cefTRIAXone SODIUM 1 GM VIAL ONE (09:05)
[2020-11-04] MEDS: DEXAMETHASONE SOD PHOSPHATE 4 MG/1 ML VIAL IVPUSH SCH (09:51)
[2020-11-04] MEDS: ENOXAPARIN NA (PORCINE) 40 MG/0.4 ML DISP.SYRIN SQ SCH (09:52)
[2020-11-04] MEDS: ZINC SULFATE 220 MG CAPSULE (FP) PO SCH ×2 (09:53→21:22)
[2020-11-04] MEDS: ASCORBIC ACID 500 MG TABLET (FP) PO SCH ×2 (09:53→21:22)
[2020-11-04] MEDS: PANTOPRAZOLE SODIUM 40 MG VIAL IVPUSH SCH (09:54)
[2020-11-04] MEDS: ALBUTEROL SO4 HFA INHALER IH SCH ×4 (09:54→21:22)
[2020-11-04] MEDS: CEFTRIAXONE 1 GM in DEXTROSE 5%-WATER - 50 ML IVPB SCH (09:54)
[2020-11-04] MEDS: CHOLECALCIFEROL (VIT D3) 1,000 UNIT (25 MCG) TABLET PO SCH (09:55)
[2020-11-04] MEDS: BUDESONIDE/FORMETEROL FUMARATE 160/4.5 mcg INHALER IH SCH ×2 (09:55→21:24)
[2020-11-04] MEDS: AZITHROMYCIN IVPB 250 MG in DEXTROSE 5%-WATER - 250 ML IVPB SCH (09:56)
[2020-11-04] MEDS ORDERED: INSULIN (NOVOLOG) ASPART 100 UNITS/ML 10ML VIAL ONE (12:20)
[2020-11-04] MEDS: PANTOPRAZOLE 40 MG TABLET PO SCH (12:41)
[2020-11-04] MEDS: REMDESIVIR 100 MG in SODIUM CHLORIDE 230 ML IVPB SCH (12:44)
[2020-11-04 13:05] LABS: PLATELET ESTIMATE NORMAL
[2020-11-04 15:16] LABS: POTASSIUM 4.5 mmol/L (3.5-5.1)
[2020-11-04 15:19] LABS: BLOOD UREA NITROGEN 22.2 mg/dL (7-18); CALCIUM 8.7 mg/dL (8.5-10.1)
[2020-11-04] MEDS ORDERED: DOCUSATE SODIUM 100 MG CAPSULE (FP) PO ONE (20:56)
[2020-11-04] MEDS ORDERED: SENNOSIDES 8.6MG TABLET (FP) PO ONE (20:57)
[2020-11-05] MEDS: INSULIN SLIDING SCALE (NOVOLOG) 1 VIAL SQ SCH ×4 (06:50→21:13)
[2020-11-05 08:00] LABS: BASO % 0.3 % (0-2.0); HEMATOCRIT 35.6 % (32.4-45.2); LYMPH % 18.6 % (8-40); MCH 30.7 pg (25.7-33.7); MCHC 33.7 g/dl (32.0-36.0); MEAN CELL VOLUME 91.1 fl (80-96); MEAN PLT VOLUME 9.2 fl (7.5-11.1); NEUT % 71.1 % (42.8-82.8); PLATELET COUNT 268 K/MM3 (134-434); RBC 3.91 M/mm3 (3.60-5.2); RDW 14.5 % (11.6-15.6); WHITE BLOOD COUNT 5.8 K/mm3 (4.0-10.0)
[2020-11-05] MEDS: ALBUTEROL SO4 HFA INHALER IH SCH ×4 (08:00→20:39)
[2020-11-05 08:22] LABS: POTASSIUM 5.1 mmol/L (3.5-5.1)
[2020-11-05 08:26] LABS: ALBUMIN 2.5 g/dl (3.4-5.0); BLOOD UREA NITROGEN 20.4 mg/dL (7-18); CALCIUM 8.8 mg/dL (8.5-10.1); MAGNESIUM 2.6 mg/dL (1.8-2.4)
[2020-11-05 08:29] LABS: CREATININE 0.8 mg/dL (0.55-1.3)
[2020-11-05 08:31] LABS: TOT PROT 6.2 g/dl (6.4-8.2)
[2020-11-05 08:35] LABS: BILIRUBIN,TOTAL 1.1 mg/dL (0.2-1)
[2020-11-05] MEDS ORDERED: DEXTROSE 5%-WATER - 50 ML IVPB ONE (09:05)
[2020-11-05] MEDS ORDERED: cefTRIAXone SODIUM 1 GM VIAL ONE (09:05)
[2020-11-05] MEDS: BUDESONIDE/FORMETEROL FUMARATE 160/4.5 mcg INHALER IH SCH ×2 (09:32→21:13)
[2020-11-05 09:37] LABS: ANISOCYTOSIS 2+; MACROCYTOSIS 0; PLATELET ESTIMATE NORMAL
[2020-11-05] MEDS: PANTOPRAZOLE 40 MG TABLET PO SCH (09:47)
[2020-11-05] MEDS: ASCORBIC ACID 500 MG TABLET (FP) PO SCH ×2 (09:47→21:13)
[2020-11-05] MEDS: DEXAMETHASONE SOD PHOSPHATE 4 MG/1 ML VIAL IVPUSH SCH (09:47)
[2020-11-05] MEDS: ZINC SULFATE 220 MG CAPSULE (FP) PO SCH ×2 (09:47→21:13)
[2020-11-05] MEDS: ENOXAPARIN NA (PORCINE) 40 MG/0.4 ML DISP.SYRIN SQ SCH (09:47)
[2020-11-05] MEDS: CEFTRIAXONE 1 GM in DEXTROSE 5%-WATER - 50 ML IVPB SCH (09:48)
[2020-11-05] MEDS: CHOLECALCIFEROL (VIT D3) 1,000 UNIT (25 MCG) TABLET PO SCH (09:54)
[2020-11-05] MEDS: AZITHROMYCIN IVPB 250 MG in DEXTROSE 5%-WATER - 250 ML IVPB SCH (11:00)
[2020-11-05] MEDS ORDERED: PT OWN MED DRAWER 7, Y5N ONE (11:46)
[2020-11-05] MEDS: REMDESIVIR 100 MG in SODIUM CHLORIDE 230 ML IVPB SCH (11:51)
[2020-11-05] MEDS ORDERED: DOCUSATE SODIUM 100 MG CAPSULE (FP) PO ONE (16:16)
[2020-11-05] MEDS ORDERED: POLYETHYLENE GLYCOL 3350 119 GM BTL PO ONE (16:16)
[2020-11-05] MEDS: MELATONIN 5 MG TABLETS PO PRN (21:13)
[2020-11-06] MEDS: guaiFENesin/D-METHORPHAN HB 10 ML UNIT-DOSE CUPS PO PRN ×4 (00:53→22:43)
[2020-11-06] MEDS: INSULIN SLIDING SCALE (NOVOLOG) 1 VIAL SQ SCH ×4 (06:19→21:44)
[2020-11-06] MEDS: ALBUTEROL SO4 HFA INHALER IH SCH ×4 (09:01→21:44)
[2020-11-06] MEDS ORDERED: cefTRIAXone SODIUM 1 GM VIAL ONE (09:32)
[2020-11-06] MEDS ORDERED: DEXTROSE 5%-WATER - 50 ML IVPB ONE (09:32)
[2020-11-06 09:37] LABS: HEMATOCRIT 35.8 % (32.4-45.2); MCH 30.3 pg (25.7-33.7); MCHC 33.6 g/dl (32.0-36.0); MEAN CELL VOLUME 90.1 fl (80-96); MEAN PLT VOLUME 8.5 fl (7.5-11.1); PLATELET COUNT 331 K/MM3 (134-434); RBC 3.97 M/mm3 (3.60-5.2); RDW 14.9 % (11.6-15.6); WHITE BLOOD COUNT 6.7 K/mm3 (4.0-10.0)
[2020-11-06 10:04] LABS: POTASSIUM 4.8 mmol/L (3.5-5.1)
[2020-11-06] MEDS: CEFTRIAXONE 1 GM in DEXTROSE 5%-WATER - 50 ML IVPB SCH (10:06)
[2020-11-06] MEDS: ASCORBIC ACID 500 MG TABLET (FP) PO SCH ×2 (10:07→21:43)
[2020-11-06] MEDS: DEXAMETHASONE SOD PHOSPHATE 4 MG/1 ML VIAL IVPUSH SCH (10:07)
[2020-11-06] MEDS: ENOXAPARIN NA (PORCINE) 40 MG/0.4 ML DISP.SYRIN SQ SCH (10:07)
[2020-11-06] MEDS: PANTOPRAZOLE 40 MG TABLET PO SCH (10:07)
[2020-11-06 10:08] LABS: CALCIUM 8.6 mg/dL (8.5-10.1)
[2020-11-06] MEDS: ZINC SULFATE 220 MG CAPSULE (FP) PO SCH ×2 (10:08→21:44)
[2020-11-06] MEDS: BUDESONIDE/FORMETEROL FUMARATE 160/4.5 mcg INHALER IH SCH ×2 (10:08→21:45)
[2020-11-06 10:09] LABS: ALBUMIN 2.4 g/dl (3.4-5.0); BLOOD UREA NITROGEN 19.9 mg/dL (7-18); MAGNESIUM 2.3 mg/dL (1.8-2.4)
[2020-11-06] MEDS: CHOLECALCIFEROL (VIT D3) 1,000 UNIT (25 MCG) TABLET PO SCH (10:10)
[2020-11-06 10:11] LABS: CREATININE 0.8 mg/dL (0.55-1.3)
[2020-11-06 10:12] LABS: PHOSPHOROUS 2.8 mg/dL (2.5-4.9)
[2020-11-06 10:13] LABS: TOT PROT 5.9 g/dl (6.4-8.2)
[2020-11-06] MEDS ORDERED: PHENOL 177 ML SPRAY BOTTLE MM PRN (11:18)
[2020-11-06] MEDS ORDERED: BENZOCAINE/MENTH/CETYLPYRD CL 1 EACH LOZENGE MM PRN (11:18)
[2020-11-06 12:25] LABS: BILIRUBIN,TOTAL 0.4 mg/dL (0.2-1)
[2020-11-06] MEDS: AZITHROMYCIN IVPB 250 MG in DEXTROSE 5%-WATER - 250 ML IVPB SCH (12:29)
[2020-11-06] MEDS: REMDESIVIR 100 MG in SODIUM CHLORIDE 230 ML IVPB SCH (13:00)
[2020-11-06] MEDS ORDERED: PT OWN MED DRAWER 7, Y5N ONE (21:35)
[2020-11-06] MEDS: MELATONIN 5 MG TABLETS PO PRN (21:44)
[2020-11-07] MEDS: INSULIN SLIDING SCALE (NOVOLOG) 1 VIAL SQ SCH ×4 (06:11→21:05)
[2020-11-07 08:22] LABS: HEMATOCRIT 35.9 % (32.4-45.2); HEMOGLOBIN 12.1 GM/dL (10.7-15.3); MCH 30.5 pg (25.7-33.7); MCHC 33.8 g/dl (32.0-36.0); MEAN CELL VOLUME 90.3 fl (80-96); MEAN PLT VOLUME 8.4 fl (7.5-11.1); PLATELET COUNT 383 K/MM3 (134-434); RBC 3.98 M/mm3 (3.60-5.2); WHITE BLOOD COUNT 8.3 K/mm3 (4.0-10.0)
[2020-11-07 08:36] LABS: POTASSIUM 4.7 mmol/L (3.5-5.1)
[2020-11-07 08:42] LABS: CALCIUM 8.7 mg/dL (8.5-10.1)
[2020-11-07 08:43] LABS: BLOOD UREA NITROGEN 16.9 mg/dL (7-18)
[2020-11-07 08:46] LABS: CREATININE 0.7 mg/dL (0.55-1.3)
[2020-11-07] MEDS ORDERED: cefTRIAXone SODIUM 1 GM VIAL ONE (10:01)
[2020-11-07] MEDS ORDERED: DEXTROSE 5%-WATER - 50 ML IVPB ONE (10:01)
[2020-11-07] MEDS ORDERED: PT OWN MED DRAWER 7, Y5N ONE (10:01)
[2020-11-07] MEDS: CHOLECALCIFEROL (VIT D3) 1,000 UNIT (25 MCG) TABLET PO SCH (10:20)
[2020-11-07] MEDS: ZINC SULFATE 220 MG CAPSULE (FP) PO SCH ×2 (10:20→21:05)
[2020-11-07] MEDS: ENOXAPARIN NA (PORCINE) 40 MG/0.4 ML DISP.SYRIN SQ SCH (10:20)
[2020-11-07] MEDS: ASCORBIC ACID 500 MG TABLET (FP) PO SCH ×2 (10:20→21:05)
[2020-11-07] MEDS: PANTOPRAZOLE 40 MG TABLET PO SCH (10:20)
[2020-11-07] MEDS: DEXAMETHASONE SOD PHOSPHATE 4 MG/1 ML VIAL IVPUSH SCH (10:20)
[2020-11-07] MEDS: CEFTRIAXONE 1 GM in DEXTROSE 5%-WATER - 50 ML IVPB SCH (10:21)
[2020-11-07] MEDS: BUDESONIDE/FORMETEROL FUMARATE 160/4.5 mcg INHALER IH SCH ×2 (10:25→21:05)
[2020-11-07] MEDS: ALBUTEROL SO4 HFA INHALER IH SCH ×4 (10:25→21:05)
[2020-11-07] MEDS: AZITHROMYCIN IVPB 250 MG in DEXTROSE 5%-WATER - 250 ML IVPB SCH (10:26)
[2020-11-07] MEDS: REMDESIVIR 100 MG in SODIUM CHLORIDE 230 ML IVPB SCH (12:28)
[2020-11-07] MEDS ORDERED: INSULIN (NOVOLOG) ASPART 100 UNITS/ML 10ML VIAL ONE (20:33)
[2020-11-08] MEDS: guaiFENesin/D-METHORPHAN HB 10 ML UNIT-DOSE CUPS PO PRN ×2 (05:44→21:48)
[2020-11-08] MEDS: INSULIN SLIDING SCALE (NOVOLOG) 1 VIAL SQ SCH ×4 (06:07→21:48)
[2020-11-08 08:07] LABS: HEMATOCRIT 36.7 % (32.4-45.2); HEMOGLOBIN 12.3 GM/dL (10.7-15.3); MCH 30.4 pg (25.7-33.7); MCHC 33.5 g/dl (32.0-36.0); MEAN CELL VOLUME 90.7 fl (80-96); MEAN PLT VOLUME 8.4 fl (7.5-11.1); PLATELET COUNT 392 K/MM3 (134-434); RBC 4.04 M/mm3 (3.60-5.2); RDW 14.8 % (11.6-15.6); WHITE BLOOD COUNT 8.5 K/mm3 (4.0-10.0)
[2020-11-08 08:25] LABS: POTASSIUM 4.6 mmol/L (3.5-5.1)
[2020-11-08 08:27] LABS: CALCIUM 8.6 mg/dL (8.5-10.1)
[2020-11-08 08:28] LABS: BLOOD UREA NITROGEN 15.1 mg/dL (7-18); MAGNESIUM 2.3 mg/dL (1.8-2.4)
[2020-11-08 08:31] LABS: CREATININE 0.8 mg/dL (0.55-1.3); PHOSPHOROUS 3.2 mg/dL (2.5-4.9)
[2020-11-08] MEDS ORDERED: PT OWN MED DRAWER 7, Y5N ONE (10:02)
[2020-11-08] MEDS: PANTOPRAZOLE 40 MG TABLET PO SCH (10:07)
[2020-11-08] MEDS: ALBUTEROL SO4 HFA INHALER IH SCH ×4 (10:07→21:48)
[2020-11-08] MEDS: ASCORBIC ACID 500 MG TABLET (FP) PO SCH ×2 (10:07→21:48)
[2020-11-08] MEDS: ENOXAPARIN NA (PORCINE) 40 MG/0.4 ML DISP.SYRIN SQ SCH (10:07)
[2020-11-08] MEDS: ZINC SULFATE 220 MG CAPSULE (FP) PO SCH ×2 (10:07→21:48)
[2020-11-08] MEDS: CHOLECALCIFEROL (VIT D3) 1,000 UNIT (25 MCG) TABLET PO SCH (10:08)
[2020-11-08] MEDS: DEXAMETHASONE SOD PHOSPHATE 4 MG/1 ML VIAL IVPUSH SCH (10:08)
[2020-11-08] MEDS: BUDESONIDE/FORMETEROL FUMARATE 160/4.5 mcg INHALER IH SCH ×2 (10:10→21:48)
[2020-11-09] MEDS: INSULIN SLIDING SCALE (NOVOLOG) 1 VIAL SQ SCH ×3 (06:03→17:30)
[2020-11-09] MEDS: ALBUTEROL SO4 HFA INHALER IH SCH ×3 (09:00→17:30)
[2020-11-09] MEDS: ENOXAPARIN NA (PORCINE) 40 MG/0.4 ML DISP.SYRIN SQ SCH (10:28)
[2020-11-09] MEDS: ASCORBIC ACID 500 MG TABLET (FP) PO SCH (10:28)
[2020-11-09] MEDS: DEXAMETHASONE SOD PHOSPHATE 4 MG/1 ML VIAL IVPUSH SCH (10:28)
[2020-11-09] MEDS: ZINC SULFATE 220 MG CAPSULE (FP) PO SCH (10:29)
[2020-11-09] MEDS: PANTOPRAZOLE 40 MG TABLET PO SCH (10:29)
[2020-11-09] MEDS: BUDESONIDE/FORMETEROL FUMARATE 160/4.5 mcg INHALER IH SCH (10:29)
[2020-11-09] MEDS: CHOLECALCIFEROL (VIT D3) 1,000 UNIT (25 MCG) TABLET PO SCH (10:30)
[2020-11-09 14:02] VITALS: BP 117/68; PULSE 76; TEMP 98
== END 2020-11-09 20:28 | disposition home health service (06) | DRG 177 ==
LOC: JER 13:44 → JERBED 17:23 → INTOOBSV 17:23 → UNDOADMOB 17:23 → J5WEST-2 21:54 → JERBED 21:54 → J5WEST-2 11-01 08:19 → J7W 11-02 23:20 → OBSVTOIN 11-03 11:46
PROVIDERS: ADMIT Internal Medicine; ATTEND Internal Medicine
PROC: 3E0330M Introduction of Antineoplastic, Monoclonal Antibody, into Peripheral Vein, Percutaneous Approach (ICD-10-PCS; 2020-11-01)
PROC: XW033E5 Introduction of Remdesivir Anti-infective into Peripheral Vein, Percutaneous Approach, New Technology Group 5 (ICD-10-PCS; principal; 2020-11-03)
DX: U07.1 COVID-19 (principal); J12.82 Pneumonia due to coronavirus disease 2019; J96.01 Acute respiratory failure with hypoxia; Z68.41 Body mass index [BMI] 40.0-44.9, adult; I10 Essential (primary) hypertension; E11.9 Type 2 diabetes mellitus without complications; Z79.84 Long term (current) use of oral hypoglycemic drugs; E86.0 Dehydration; E66.01 Morbid (severe) obesity due to excess calories; K63.9 Disease of intestine, unspecified
CPT/HCPCS: 36415; 71045-TC-FY; 80048; 80053; 81003; 82728; 82962; 83605; 83615; 83690; 83735; 83880; 84100; 84484; 85025; 85027; 85379; 85610; 85651; 85730; 86140; 86769; 87040; 87081; 87086; 87899; 93005; 93010; 94761; 97116-GP; 99285-25; C9399; C9803; G0378; J0131; M0243; Q0243; U0003

== ENCOUNTER 2020-11-12 13:12 | Emergency (ER) | payer BC ==
[2020-11-12 13:22] VITALS: BP 129/69; PULSE 85; TEMP 98.7; BMI 47.4
== END 2020-11-12 16:01 | disposition home or self-care (01) ==
LOC: JER 13:12
DX: J18.9 Pneumonia, unspecified organism (principal)
CPT/HCPCS: 71046-TC-FY; 99283-25

== ENCOUNTER 2020-12-08 13:57 | Emergency (ER) | payer BC ==
[2020-12-08 14:09] VITALS: BP 119/64; PULSE 65; TEMP 98.7; BMI 43.5
[2020-12-08 16:11] LABS: EOS % 0.8 % (0-4.5); HEMOGLOBIN 13.1 GM/dL (10.7-15.3); LYMPH % 26.6 % (8-40); MCH 30.8 pg (25.7-33.7); MCHC 32.8 g/dl (32.0-36.0); MEAN PLT VOLUME 8.9 fl (7.5-11.1); MONO % 8.3 % (3.8-10.2); NEUT % 63.3 % (42.8-82.8); PLATELET COUNT 382 K/MM3 (134-434); RBC 4.26 M/mm3 (3.60-5.2); RDW 16.8 % (11.6-15.6); WHITE BLOOD COUNT 6.5 K/mm3 (4.0-10.0)
[2020-12-08 16:25] LABS: CHLORIDE 104 mmol/L (98-107); POTASSIUM 4.2 mmol/L (3.5-5.1); SODIUM 138 mmol/L (136-145)
[2020-12-08 16:27] LABS: CALCIUM 9.8 mg/dL (8.5-10.1)
[2020-12-08 16:28] LABS: ALBUMIN 3.5 g/dl (3.4-5.0); ANION GAP 5 MMOL/L (8-16); BLOOD UREA NITROGEN 8.3 mg/dL (7-18); CO2 29 mmol/L (21-32); GLUCOSE,RANDOM 99 mg/dL (74-106)
[2020-12-08 16:31] LABS: CREATININE 0.8 mg/dL (0.55-1.3); SGOT/AST 25 U/L (15-37); SGPT/ALT 36 U/L (13-61)
[2020-12-08 16:33] LABS: BILIRUBIN,TOTAL 0.3 mg/dL (0.2-1); TOT PROT 7.3 g/dl (6.4-8.2)
[2020-12-08 16:34] LABS: ALK PHOS 107 U/L (45-117)
[2020-12-08 16:38] LABS: URINE APPEARANCE CLEAR; URINE BILIRUBIN NEGATIVE (NEGATIVE); URINE COLOR YELLOW; URINE GLUCOSE (UA) NEGATIVE (NEGATIVE); URINE KETONE NEGATIVE (NEGATIVE); URINE LEUK ESTERASE NEGATIVE (NEGATIVE); URINE NITRITE NEGATIVE (NEGATIVE); URINE PROTEIN NEGATIVE (NEGATIVE); URINE UROBILINOGEN 0.2 mg/dL (0.2-1.0)
[2020-12-08] MEDS ORDERED: LACTULOSE 20 GM/30 ML UDC (FOR ORAL USE ONLY) PO ONE (18:07)
[2020-12-08] MEDS ORDERED: LACTULOSE 20 GM/30 ML UDC (FOR ORAL USE ONLY) ONE (18:19)
== END 2020-12-08 18:28 | disposition home or self-care (01) ==
LOC: JER 13:57
DX: R53.81 Other malaise (principal); K59.00 Constipation, unspecified
CPT/HCPCS: 36415; 71046-TC-FY; 74019-TC-FY; 74177-TC; 80053; 81003; 82550; 83880; 84484; 85025; 87086; 93005; 93010; 99285-25

== ENCOUNTER 2021-01-22 04:27 | Inpatient (IN) | payer OTHER ==
[2021-01-18 16:59] VITALS: BMI 43.5
[2021-01-22] MEDS ORDERED: ALVIMOPAN 12 MG CAP PO ONE (07:50)
[2021-01-22] MEDS ORDERED: BUPIVACAINE LIPOSOME/PF (EXPAREL) 266 MG/20 ML VIAL ONE (08:29)
[2021-01-22] MEDS ORDERED: ALVIMOPAN 12 MG CAP PO SCH (08:30)
[2021-01-22] MEDS ORDERED: ERTAPENEM SODIUM 1 GM in SODIUM CHLORIDE 50 ML IVPB ONE ×2 (08:30→16:43)
[2021-01-22] MEDS ORDERED: ERTAPENEM SODIUM 1 GM VIAL IVPB ONE (10:55)
[2021-01-22] MEDS ORDERED: INDOCYANINE GREEN 25 MG/10 ML VIAL IVPUSH ONE (13:24)
[2021-01-22] MEDS ORDERED: morphine SULFATE 4 MG/ML VIAL IVPUSH PRN (15:54)
[2021-01-22] MEDS ORDERED: ACETAMINOPHEN 1000 MG/100 ML VIAL (NON FORMULARY) IVPB ONE (16:00)
[2021-01-22] MEDS ORDERED: traMADol HCL 50 MG TABLET PO PRN (16:09)
[2021-01-22] MEDS ORDERED: ONDANSETRON 4 MG/2 ML VIAL IVPUSH PRN (16:09)
[2021-01-22] MEDS ORDERED: oxyCODONE HCL 5 MG TABLET PO PRN (16:09)
[2021-01-22] MEDS ORDERED: LACTATED RINGERS SOLUTION 1,000 ML IV SCH (16:15)
[2021-01-22] MEDS: ACETAMINOPHEN 1000 MG/100 ML VIAL (NON FORMULARY) IVPB SCH (17:48)
[2021-01-22] MEDS ORDERED: ACETAMINOPHEN 1000 MG/100 ML VIAL (NON FORMULARY) IVPB SCH (18:00)
[2021-01-22] MEDS: CEFAZOLIN 2 GM/D5W 2 GM/50 ML ML IVPB SCH (18:00)
[2021-01-22] MEDS ORDERED: CEFAZOLIN 2 GM/D5W 2 GM/50 ML ML IVPB SCH (18:00)
[2021-01-22] MEDS ORDERED: ceFAZolin 2 GRAM PREMIX BAG IVPB ONE (18:01)
[2021-01-22] MEDS: ALBUTEROL SO4 HFA INHALER IH SCH ×2 (18:36→20:58)
[2021-01-22] MEDS ORDERED: HEPARIN NA (PORCINE) 5,000 UNITS/ML 1ML VIAL SQ SCH (22:00)
[2021-01-22] MEDS: BUDESONIDE/FORMETEROL FUMARATE 160/4.5 mcg INHALER IH SCH (22:01)
[2021-01-22] MEDS: INSULIN SLIDING SCALE (NOVOLOG) 1 VIAL SQ SCH (22:01)
[2021-01-22] MEDS: ALVIMOPAN 12 MG CAP PO SCH (22:02)
[2021-01-22] MEDS: oxyCODONE HCL 5 MG TABLET PO PRN (22:03)
[2021-01-22] MEDS: HEPARIN NA (PORCINE) 5,000 UNITS/ML 1ML VIAL SQ SCH (22:03)
[2021-01-22] MEDS ORDERED: DEXAMETHASONE SOD PHOSPHATE 4 MG/1 ML VIAL IVPUSH ONE ×2 (22:33)
[2021-01-22] MEDS ORDERED: PANTOPRAZOLE 40 MG TABLET PO ONE (22:35)
[2021-01-22] MEDS: guaiFENesin/D-M SUGAR-FREE/ACLHOL-FREE 118 ML BOTTLE PO PRN (22:54)
[2021-01-23] MEDS: ACETAMINOPHEN 1000 MG/100 ML VIAL (NON FORMULARY) IVPB SCH ×5 (00:17→23:51)
[2021-01-23] MEDS: CEFAZOLIN 2 GM/D5W 2 GM/50 ML ML IVPB SCH (02:00)
[2021-01-23] MEDS ORDERED: LACTATED RINGERS SOLUTION 1,000 ML IV SCH (03:26)
[2021-01-23] MEDS: guaiFENesin/D-M SUGAR-FREE/ACLHOL-FREE 118 ML BOTTLE PO PRN ×2 (03:33→21:33)
[2021-01-23] MEDS: INSULIN SLIDING SCALE (NOVOLOG) 1 VIAL SQ SCH ×4 (06:24→21:27)
[2021-01-23] MEDS: HEPARIN NA (PORCINE) 5,000 UNITS/ML 1ML VIAL SQ SCH ×3 (06:24→21:23)
[2021-01-23] MEDS ORDERED: metFORMIN HCL 500 MG TABLET (FP) PO SCH (07:00)
[2021-01-23 07:46] LABS: BASO % 0.1 % (0-2.0); HEMATOCRIT 36.8 % (32.4-45.2); HEMOGLOBIN 12.1 GM/dL (10.7-15.3); LYMPH % 8.3 % (8-40); MCH 30.9 pg (25.7-33.7); MEAN CELL VOLUME 93.6 fl (80-96); MEAN PLT VOLUME 9.1 fl (7.5-11.1); MONO % 3.2 % (3.8-10.2); NEUT % 88.4 % (42.8-82.8); PLATELET COUNT 233 K/MM3 (134-434); RBC 3.93 M/mm3 (3.60-5.2); RDW 15.7 % (11.6-15.6); WHITE BLOOD COUNT 11.8 K/mm3 (4.0-10.0)
[2021-01-23 08:27] LABS: BLOOD UREA NITROGEN 9.9 mg/dL (7-18)
[2021-01-23 08:31] LABS: CREATININE 0.7 mg/dL (0.55-1.3); PHOSPHOROUS 3.6 mg/dL (2.5-4.9)
[2021-01-23 08:32] LABS: BILIRUBIN,TOTAL 0.4 mg/dL (0.2-1); TOT PROT 6.1 g/dl (6.4-8.2)
[2021-01-23] MEDS: oxyCODONE HCL 5 MG TABLET PO PRN (08:52)
[2021-01-23] MEDS: ALVIMOPAN 12 MG CAP PO SCH ×2 (09:40→20:16)
[2021-01-23] MEDS: BUDESONIDE/FORMETEROL FUMARATE 160/4.5 mcg INHALER IH SCH ×2 (09:41→21:23)
[2021-01-23] MEDS: PANTOPRAZOLE 40 MG TABLET PO SCH (09:41)
[2021-01-23] MEDS: LOSARTAN POTASSIUM 25 MG TABLET PO SCH (09:41)
[2021-01-23] MEDS: ALBUTEROL SO4 HFA INHALER IH SCH ×4 (09:41→20:16)
[2021-01-23] MEDS ORDERED: DEXAMETHASONE 6 MG PO SCH (10:00)
[2021-01-23] MEDS ORDERED: DEXAMETHASONE 4 MG TABLET (FP) PO SCH (10:00)
[2021-01-23] MEDS: VITAMIN A 10,000 UNITS (3000 MCG) CAPSULE PO SCH (10:05)
[2021-01-23] MEDS ORDERED: BENZOCAINE/MENTH/CETYLPYRD CL 1 EACH LOZENGE MM PRN (12:41)
[2021-01-23] MEDS: LACTATED RINGERS SOLUTION 1,000 ML/1,000 ML INFUS.BAG IV SCH (15:03)
[2021-01-23] MEDS: AMOX TR/POT CLAV 875MG/125MG TABLETS (FP) PO SCH (17:17)
[2021-01-24] MEDS ORDERED: INSULIN (NOVOLOG) ASPART 100 UNITS/ML 10ML VIAL ONE ×2 (05:32→17:48)
[2021-01-24] MEDS: HEPARIN NA (PORCINE) 5,000 UNITS/ML 1ML VIAL SQ SCH ×3 (06:01→21:19)
[2021-01-24] MEDS: ACETAMINOPHEN 1000 MG/100 ML VIAL (NON FORMULARY) IVPB SCH ×2 (06:02→11:25)
[2021-01-24] MEDS: INSULIN SLIDING SCALE (NOVOLOG) 1 VIAL SQ SCH ×4 (06:07→21:20)
[2021-01-24] MEDS: guaiFENesin/D-M SUGAR-FREE/ACLHOL-FREE 118 ML BOTTLE PO PRN ×2 (06:32→20:51)
[2021-01-24 08:08] LABS: BASO % 1.2 % (0-2.0); EOS % 0.6 % (0-4.5); HEMATOCRIT 33.6 % (32.4-45.2); HEMOGLOBIN 11.2 GM/dL (10.7-15.3); LYMPH % 17.2 % (8-40); MCH 31.3 pg (25.7-33.7); MCHC 33.3 g/dl (32.0-36.0); MEAN PLT VOLUME 8.9 fl (7.5-11.1); PLATELET COUNT 203 K/MM3 (134-434); RBC 3.57 M/mm3 (3.60-5.2); RDW 15.5 % (11.6-15.6); WHITE BLOOD COUNT 8.5 K/mm3 (4.0-10.0)
[2021-01-24] MEDS: AMOX TR/POT CLAV 875MG/125MG TABLETS (FP) PO SCH ×2 (08:08→17:32)
[2021-01-24] MEDS: ALBUTEROL SO4 HFA INHALER IH SCH ×4 (08:08→21:00)
[2021-01-24 08:33] LABS: CALCIUM 8.8 mg/dL (8.5-10.1)
[2021-01-24 08:37] LABS: CREATININE 0.7 mg/dL (0.55-1.3); PHOSPHOROUS 2.9 mg/dL (2.5-4.9)
[2021-01-24 08:38] LABS: BILIRUBIN,TOTAL 0.4 mg/dL (0.2-1)
[2021-01-24] MEDS ORDERED: PT OWN MED DRAWER 7, Y5N ONE (09:15)
[2021-01-24] MEDS: LOSARTAN POTASSIUM 25 MG TABLET PO SCH (09:18)
[2021-01-24] MEDS: ALVIMOPAN 12 MG CAP PO SCH ×2 (09:18→20:51)
[2021-01-24] MEDS: VITAMIN A 10,000 UNITS (3000 MCG) CAPSULE PO SCH (09:18)
[2021-01-24] MEDS: PANTOPRAZOLE 40 MG TABLET PO SCH (09:18)
[2021-01-24] MEDS: BUDESONIDE/FORMETEROL FUMARATE 160/4.5 mcg INHALER IH SCH ×2 (09:19→21:20)
[2021-01-24] MEDS ORDERED: ACETAMINOPHEN 325 MG TABLET (FP) PO PRN (16:11)
[2021-01-24] MEDS: LACTATED RINGERS SOLUTION 1,000 ML/1,000 ML INFUS.BAG IV SCH (17:58)
[2021-01-25] MEDS ORDERED: PT OWN MED DRAWER 7, Y5N ONE (01:12)
[2021-01-25] MEDS: HEPARIN NA (PORCINE) 5,000 UNITS/ML 1ML VIAL SQ SCH ×3 (05:30→21:50)
[2021-01-25] MEDS: INSULIN SLIDING SCALE (NOVOLOG) 1 VIAL SQ SCH ×4 (06:05→21:49)
[2021-01-25 07:44] LABS: BASO % 0.8 % (0-2.0); EOS % 2.5 % (0-4.5); HEMOGLOBIN 11.1 GM/dL (10.7-15.3); LYMPH % 21.6 % (8-40); MCH 31.7 pg (25.7-33.7); MCHC 33.6 g/dl (32.0-36.0); MEAN CELL VOLUME 94.3 fl (80-96); MEAN PLT VOLUME 9.1 fl (7.5-11.1); MONO % 9.1 % (3.8-10.2); PLATELET COUNT 199 K/MM3 (134-434); RDW 15.5 % (11.6-15.6); WHITE BLOOD COUNT 6.8 K/mm3 (4.0-10.0)
[2021-01-25] MEDS: ALBUTEROL SO4 HFA INHALER IH SCH ×4 (08:00→20:55)
[2021-01-25 08:15] LABS: CALCIUM 8.4 mg/dL (8.5-10.1)
[2021-01-25 08:17] LABS: BLOOD UREA NITROGEN 6.8 mg/dL (7-18)
[2021-01-25 08:18] LABS: ALBUMIN 2.8 g/dl (3.4-5.0)
[2021-01-25 08:20] LABS: CREATININE 0.6 mg/dL (0.55-1.3)
[2021-01-25 08:21] LABS: BILIRUBIN,TOTAL 0.4 mg/dL (0.2-1); TOT PROT 5.6 g/dl (6.4-8.2)
[2021-01-25] MEDS: PANTOPRAZOLE 40 MG TABLET PO SCH (09:04)
[2021-01-25] MEDS: AMOX TR/POT CLAV 875MG/125MG TABLETS (FP) PO SCH ×2 (09:05→17:52)
[2021-01-25] MEDS: LOSARTAN POTASSIUM 25 MG TABLET PO SCH (09:05)
[2021-01-25] MEDS: ALVIMOPAN 12 MG CAP PO SCH (09:46)
[2021-01-25] MEDS: VITAMIN A 10,000 UNITS (3000 MCG) CAPSULE PO SCH (09:47)
[2021-01-25] MEDS: BUDESONIDE/FORMETEROL FUMARATE 160/4.5 mcg INHALER IH SCH ×2 (09:50→21:49)
[2021-01-25] MEDS ORDERED: FUROSEMIDE 20 MG TABLET (FP) PO ONE (14:29)
[2021-01-25] MEDS ORDERED: INSULIN (NOVOLOG) ASPART 100 UNITS/ML 10ML VIAL ONE (16:36)
[2021-01-25 22:44] VITALS: PULSE 64
[2021-01-26] MEDS ORDERED: MELATONIN 5 MG TABLETS PO ONE (00:07)
[2021-01-26] MEDS: HEPARIN NA (PORCINE) 5,000 UNITS/ML 1ML VIAL SQ SCH (05:56)
[2021-01-26] MEDS: INSULIN SLIDING SCALE (NOVOLOG) 1 VIAL SQ SCH ×2 (05:59→12:05)
[2021-01-26 06:27] VITALS: BP 135/62; TEMP 98.2
[2021-01-26 08:05] LABS: BASO % 0.5 % (0-2.0); EOS % 2.4 % (0-4.5); HEMATOCRIT 33.8 % (32.4-45.2); HEMOGLOBIN 11.2 GM/dL (10.7-15.3); LYMPH % 23.3 % (8-40); MCH 31.3 pg (25.7-33.7); MCHC 33.2 g/dl (32.0-36.0); MEAN CELL VOLUME 94.2 fl (80-96); MEAN PLT VOLUME 9.3 fl (7.5-11.1); MONO % 8.8 % (3.8-10.2); PLATELET COUNT 223 K/MM3 (134-434); RBC 3.59 M/mm3 (3.60-5.2); RDW 15.4 % (11.6-15.6); WHITE BLOOD COUNT 6.9 K/mm3 (4.0-10.0)
[2021-01-26 08:51] LABS: CALCIUM 8.4 mg/dL (8.5-10.1)
[2021-01-26 08:53] LABS: ALBUMIN 2.9 g/dl (3.4-5.0); BLOOD UREA NITROGEN 7.6 mg/dL (7-18); MAGNESIUM 2.1 mg/dL (1.8-2.4)
[2021-01-26] MEDS ORDERED: PT OWN MED DRAWER 7, Y5N ONE ×2 (08:54→09:10)
[2021-01-26 08:55] LABS: CREATININE 0.6 mg/dL (0.55-1.3); PHOSPHOROUS 3.6 mg/dL (2.5-4.9)
[2021-01-26] MEDS: ALBUTEROL SO4 HFA INHALER IH SCH (08:55)
[2021-01-26] MEDS: AMOX TR/POT CLAV 875MG/125MG TABLETS (FP) PO SCH (08:56)
[2021-01-26 08:57] LABS: BILIRUBIN,TOTAL 0.3 mg/dL (0.2-1); TOT PROT 5.6 g/dl (6.4-8.2)
[2021-01-26] MEDS: PANTOPRAZOLE 40 MG TABLET PO SCH (09:05)
[2021-01-26] MEDS: LOSARTAN POTASSIUM 25 MG TABLET PO SCH (09:05)
[2021-01-26] MEDS: VITAMIN A 10,000 UNITS (3000 MCG) CAPSULE PO SCH (09:05)
[2021-01-26] MEDS: BUDESONIDE/FORMETEROL FUMARATE 160/4.5 mcg INHALER IH SCH (09:07)
== END 2021-01-26 14:12 | disposition home or self-care (01) | DRG 330 ==
LOC: J2C 04:27 → EDSTATUS 09:00 → J8W 18:34
PROVIDERS: ADMIT Surgery; ATTEND Internal Medicine
PROC: 8E0W4CZ Robotic Assisted Procedure of Trunk Region, Percutaneous Endoscopic Approach (ICD-10-PCS; 2021-01-22)
PROC: 0DTF4ZZ Resection of Right Large Intestine, Percutaneous Endoscopic Approach (ICD-10-PCS; principal; 2021-01-22 09:30)
DX: D12.0 Benign neoplasm of cecum (principal); Z68.41 Body mass index [BMI] 40.0-44.9, adult; E66.01 Morbid (severe) obesity due to excess calories; I10 Essential (primary) hypertension; E78.5 Hyperlipidemia, unspecified; E11.9 Type 2 diabetes mellitus without complications; K21.9 Gastro-esophageal reflux disease without esophagitis
CPT/HCPCS: 36415; 80053; 82962; 83735; 84100; 85025; 86850; 86900; 86901; 87081; 88309-TC; 94760; 97116-GP; 97161-GP; J0131; J1644

== ENCOUNTER 2021-09-22 16:21 | Emergency (ER) | payer BC, OTHER ==
[2021-09-22 17:02] VITALS: BP 132/60; PULSE 53; TEMP 97.7; BMI 45.1
[2021-09-22 21:46] LABS: CHLORIDE 107 mmol/L (98-107); SODIUM 141 mmol/L (136-145)
[2021-09-22 21:48] LABS: BLOOD UREA NITROGEN 10.5 mg/dL (7-18); CALCIUM 9.4 mg/dL (8.5-10.1)
[2021-09-22 21:49] LABS: ALBUMIN 3.2 g/dl (3.4-5.0); ANION GAP 7 MMOL/L (8-16); CO2 28 mmol/L (21-32); GLUCOSE,RANDOM 100 mg/dL (74-106)
[2021-09-22 21:52] LABS: CREATININE 0.6 mg/dL (0.55-1.3); INR 1.09 (0.83-1.09); PROTHROMBIN TIME (PATIENT) 12.5 SEC (9.7-13.0); SGOT/AST 25 U/L (15-37); SGPT/ALT 20 U/L (13-61)
[2021-09-22 21:53] LABS: BILIRUBIN,TOTAL 0.4 mg/dL (0.2-1); TOT PROT 6.8 g/dl (6.4-8.2)
[2021-09-22 21:54] LABS: ALK PHOS 91 U/L (45-117)
[2021-09-22 21:56] LABS: ACTIVATED PTT 23.5 SECONDS (25.2-36.5)
[2021-09-22 21:58] LABS: N-TERMINAL BNP 42.2 pg/ml (5-125)
[2021-09-22 22:37] LABS: BASO % 0.7 % (0-2.0); EOS % 1.4 % (0-4.5); HEMATOCRIT 37.5 % (32.4-45.2); HEMOGLOBIN 12.7 GM/dL (10.7-15.3); MCH 31.4 pg (25.7-33.7); MEAN CELL VOLUME 92.2 fl (80-96); MEAN PLT VOLUME 8.6 fl (7.5-11.1); MONO % 7.4 % (3.8-10.2); NEUT % 65.5 % (42.8-82.8); PLATELET COUNT 239 10^3/uL (134-434); RBC 4.06 M/mm3 (3.60-5.2)
[2021-09-22 23:02] LABS: CALCIUM 9.4 mg/dL (8.5-10.1)
[2021-09-22 23:03] LABS: ALBUMIN 3.4 g/dl (3.4-5.0); BLOOD UREA NITROGEN 10.1 mg/dL (7-18)
[2021-09-22 23:06] LABS: CREATININE 0.7 mg/dL (0.55-1.3)
[2021-09-22 23:08] LABS: BILIRUBIN,TOTAL 0.3 mg/dL (0.2-1); TOT PROT 6.7 g/dl (6.4-8.2)
== END 2021-09-22 23:29 | disposition home or self-care (01) ==
LOC: JER 16:21
DX: R51.9 Headache, unspecified (principal)
CPT/HCPCS: 36415; 70450-TC; 71046-TC-FY; 80053; 82550; 82553; 83880; 84439; 84443; 84484; 85025; 85610; 85730; 93005; 93010; 99285-25; C9803; U0003; U0005

== ENCOUNTER 2022-05-09 04:05 | Day surgery (SDC) | payer BC ==
[2022-05-03 16:50] VITALS: BMI 45.1
[2022-05-09] MEDS ORDERED: ACETAMINOPHEN 325 MG TABLET (FP) PO PRN (09:37)
[2022-05-09] MEDS ORDERED: oxyCODONE HCL 5 MG TABLET PO PRN (09:37)
[2022-05-09] MEDS ORDERED: IBUPROFEN 400 MG TABLET (FP) PO PRN (09:37)
[2022-05-09] MEDS ORDERED: PROPOFOL 60 ML ONE (11:34)
[2022-05-09] MEDS ORDERED: MIDAZOLAM HCL 2 MG/2 ML SINGLE DOSE VIAL ONE (11:34)
[2022-05-09] MEDS ORDERED: ONDANSETRON 4 MG/2 ML VIAL IVPUSH PRN (12:50)
[2022-05-09] MEDS ORDERED: LACTATED RINGERS SOLUTION 1,000 ML IV SCH (13:00)
[2022-05-09 14:45] VITALS: RESP 18
[2022-05-09 14:48] VITALS: BP 144/71; PULSE 58; TEMP 97.9
== END 2022-05-09 15:00 | disposition home or self-care (01) ==
LOC: JASU-SURG 04:05
PROVIDERS: ATTEND Obstetrics & Gynecology
PROC: 0UBC8ZX Excision of Cervix, Via Natural or Artificial Opening Endoscopic, Diagnostic (ICD-10-PCS; principal; 2022-05-09 12:30)
PROC: 0UDB8ZX Extraction of Endometrium, Via Natural or Artificial Opening Endoscopic, Diagnostic (ICD-10-PCS; 2022-05-09 12:30)
DX: N95.0 Postmenopausal bleeding (principal); N84.0 Polyp of corpus uteri
CPT/HCPCS: 88305-TC; 94760

== ENCOUNTER 2023-02-21 11:48 | Emergency (ER) | payer BC, MEDICARE ==
[2023-02-21 11:53] VITALS: BP 136/75; PULSE 72; RESP 19; TEMP 99.6; BMI 48.4
[2023-02-21] MEDS ORDERED: ACETAMINOPHEN 500 MG TABLET (FP) PO ONE (12:24)
[2023-02-21] MEDS ORDERED: guaiFENesin 600 MG TABLET.ER (FP) PO ONE (12:24)
[2023-02-21] MEDS ORDERED: ACETAMINOPHEN 325 MG TABLET (FP) ONE (12:32)
== END 2023-02-21 15:21 | disposition home or self-care (01) ==
LOC: JER 11:48
DX: R53.1 Weakness (principal); U07.1 COVID-19; J06.9 Acute upper respiratory infection, unspecified; I89.0 Lymphedema, not elsewhere classified
CPT/HCPCS: 0241U-QW; 93970-TC; 99284-25

== ENCOUNTER 2023-06-14 12:05 | Emergency (ER) | payer MEDICARE ==
[2023-06-14 12:13] VITALS: RESP 18; BMI 45.1
[2023-06-14] MEDS ORDERED: ACETAMINOPHEN 1000 MG/100 ML BAG IVPB ONE (13:43)
[2023-06-14] MEDS ORDERED: ACETAMINOPHEN 325 MG TABLET (FP) PO ONE (14:29)
[2023-06-14] MEDS ORDERED: ACETAMINOPHEN 500 MG TABLET (FP) ONE (14:52)
[2023-06-14 15:21] LABS: POTASSIUM 5.7 mmol/L (3.5-5.1)
[2023-06-14 15:23] LABS: ALBUMIN 3.4 g/dl (3.4-5.0); BLOOD UREA NITROGEN 12.6 mg/dL (7-18); CALCIUM 9.4 mg/dL (8.5-10.1)
[2023-06-14 15:27] LABS: BILIRUBIN,TOTAL 0.5 mg/dL (0.2-1); CREATININE 0.8 mg/dL (0.55-1.3)
[2023-06-14 15:28] LABS: TOT PROT 7.1 g/dl (6.4-8.2)
[2023-06-14 17:22] LABS: BASO % 0.5 % (0-2.0); EOS % 0.8 % (0-4.5); HEMATOCRIT 41.3 % (32.4-45.2); HEMOGLOBIN 13.8 GM/dL (10.7-15.3); LYMPH % 26.6 % (8-40); MCH 30.5 pg (25.7-33.7); MCHC 33.4 g/dl (32.0-36.0); MEAN CELL VOLUME 91.2 fl (80-96); MEAN PLT VOLUME 8.9 fl (7.5-11.1); MONO % 8.7 % (3.8-10.2); NEUT % 63.4 % (42.8-82.8); PLATELET COUNT 223 10^3/uL (134-434); RBC 4.53 M/mm3 (3.60-5.2); RDW 15.1 % (11.6-15.6); WHITE BLOOD COUNT 7.1 K/mm3 (4.0-10.0)
[2023-06-14 17:43] LABS: POTASSIUM 4.3 mmol/L (3.5-5.1)
[2023-06-14 17:45] LABS: BLOOD UREA NITROGEN 11.8 mg/dL (7-18); CALCIUM 9.3 mg/dL (8.5-10.1)
[2023-06-14 17:49] LABS: CREATININE 0.8 mg/dL (0.55-1.3)
[2023-06-14 18:34] VITALS: BP 138/76; PULSE 54; TEMP 98.5
== END 2023-06-14 18:42 | disposition home or self-care (01) ==
LOC: JER 12:05
DX: M79.604 Pain in right leg (principal); M79.605 Pain in left leg; R20.0 Anesthesia of skin; R22.43 Localized swelling, mass and lump, lower limb, bilateral; I89.0 Lymphedema, not elsewhere classified; M17.11 Unilateral primary osteoarthritis, right knee
CPT/HCPCS: 36415; 70450-TC; 73562-TC-RT-FY; 80048; 80053; 85025; 86618; 93970-TC; 99285-25

== ENCOUNTER 2024-04-12 13:02 | Emergency (ER) | payer MEDICARE ==
[2024-04-12 13:15] VITALS: BP 112/71; PULSE 68; RESP 18; TEMP 97.5; BMI 46.3
[2024-04-12] MEDS ORDERED: ACETAMINOPHEN INJECTION 100 ML IVPB ONE (14:35)
[2024-04-12] MEDS ORDERED: METOCLOPRAMIDE HCL INJECTION 10 MG/2 ML VIAL ONE (14:35)
[2024-04-12] MEDS ORDERED: MECLIZINE HCL 25 MG TABLET (FP) ONE (14:35)
[2024-04-12] MEDS: METOCLOPRAMIDE HCL INJECTION 10 MG/2 ML VIAL IVPB ONE (14:37)
[2024-04-12] MEDS: SODIUM CHLORIDE 0.9% 500 ML INFUS.BAG IV ONE (14:37)
[2024-04-12] MEDS: ACETAMINOPHEN 1000 MG/100 ML BAG IVPB ONE (14:37)
[2024-04-12] MEDS: MECLIZINE HCL 25 MG TABLET (FP) PO ONE (14:37)
[2024-04-12 14:43] LABS: BASO % 0.8 % (0-2.0); EOS % 0.5 % (0-4.5); HEMATOCRIT 38.7 % (32.4-45.2); HEMOGLOBIN 12.6 GM/dL (10.7-15.3); LYMPH % 18.9 % (8-40); MCH 30.3 pg (25.7-33.7); MCHC 32.6 g/dl (32.0-36.0); MEAN CELL VOLUME 92.9 fl (80-96); MEAN PLT VOLUME 8.5 fl (7.5-11.1); NEUT % 70.8 % (42.8-82.8); PLATELET COUNT 219 10^3/uL (134-434); RBC 4.16 M/mm3 (3.60-5.2); RDW 15.1 % (11.6-15.6); WHITE BLOOD COUNT 6.6 K/mm3 (4.0-10.0)
[2024-04-12 15:10] LABS: POTASSIUM 4.3 mmol/L (3.5-5.1)
[2024-04-12 15:12] LABS: CALCIUM 9.6 mg/dL (8.5-10.1)
[2024-04-12 15:13] LABS: ALBUMIN 3.4 g/dl (3.4-5.0); BLOOD UREA NITROGEN 14.1 mg/dL (7-18)
[2024-04-12 15:16] LABS: CREATININE 0.7 mg/dL (0.55-1.3)
[2024-04-12 15:18] LABS: BILIRUBIN,TOTAL 0.6 mg/dL (0.2-1); TOT PROT 6.7 g/dl (6.4-8.2)
[2024-04-12 16:48] LABS: URINE APPEARANCE CLEAR; URINE BILIRUBIN NEGATIVE (NEGATIVE); URINE COLOR YELLOW; URINE GLUCOSE (UA) NEGATIVE (NEGATIVE); URINE KETONE NEGATIVE (NEGATIVE); URINE LEUK ESTERASE NEGATIVE (NEGATIVE); URINE NITRITE NEGATIVE (NEGATIVE); URINE PROTEIN NEGATIVE (NEGATIVE)
== END 2024-04-12 17:38 | disposition home or self-care (01) ==
LOC: JER 13:02
PROC: 3E033GC Introduction of Other Therapeutic Substance into Peripheral Vein, Percutaneous Approach (ICD-10-PCS; principal; 2024-04-12)
PROC: 3E033NZ Introduction of Analgesics, Hypnotics, Sedatives into Peripheral Vein, Percutaneous Approach (ICD-10-PCS; 2024-04-12)
DX: R42 Dizziness and giddiness (principal); Z20.822 Contact with and (suspected) exposure to COVID-19
CPT/HCPCS: 0241U-QW; 36415; 71045-TC-FY; 80053; 81003; 84484; 85025; 87086; 93005; 93010; 93970-TC; 96374; 96375; 99285-25; J0131

== ENCOUNTER 2024-10-30 14:40 | Inpatient (IN) | payer MEDICARE ==
[2024-10-30 19:33] LABS: BASO % 0.4 % (0-2.0); EOS % 0.8 % (0-4.5); LYMPH % 21.7 % (8-40); MCH 30.5 pg (25.7-33.7); MCHC 33.5 g/dl (32.0-36.0); MEAN CELL VOLUME 91.1 fl (80-96); MEAN PLT VOLUME 8.6 fl (7.5-11.1); MONO % 6.7 % (3.8-10.2); NEUT % 70.4 % (42.8-82.8); PLATELET COUNT 281 10^3/uL (134-434); RBC 4.28 M/mm3 (3.60-5.2); RDW 14.4 % (11.6-15.6); WHITE BLOOD COUNT 8.1 K/mm3 (4.0-10.0)
[2024-10-30 19:48] LABS: POTASSIUM 4.2 mmol/L (3.5-5.1)
[2024-10-30 19:50] LABS: CALCIUM 9.5 mg/dL (8.5-10.1)
[2024-10-30 19:51] LABS: ALBUMIN 3.4 g/dl (3.4-5.0); BLOOD UREA NITROGEN 10.1 mg/dL (7-18)
[2024-10-30 19:55] LABS: BILIRUBIN,TOTAL 0.3 mg/dL (0.2-1); CREATININE 0.8 mg/dL (0.55-1.3)
[2024-10-30 19:56] LABS: TOT PROT 7.5 g/dl (6.4-8.2)
[2024-10-30 20:11] LABS: ERYTHROCYTE SEDIMENTATION RATE 74 mm/hr (0-30)
[2024-10-30 20:45] LABS: HIV INTERPRETATION NEGATIVE (NEGATIVE)
[2024-10-31] MEDS: FUROSEMIDE 40 MG/4 ML INJECTABLE VIAL IVPUSH ONE (00:54)
[2024-10-31 02:35] VITALS: BMI 46.2
[2024-10-31] MEDS: FUROSEMIDE 40 MG/4 ML INJECTABLE VIAL IVPUSH SCH (06:04)
[2024-10-31] MEDS ORDERED: ENOXAPARIN NA (PORCINE) 40 MG/0.4 ML DISP.SYRIN SQ SCH (10:00)
[2024-10-31] MEDS: FAMOTIDINE 20 MG TABLET PO SCH (10:26)
[2024-10-31] MEDS: TOPIRAMATE 25 MG TABLET PO SCH (10:26)
[2024-10-31] MEDS: ACETAMINOPHEN 325 MG TABLET (FP) PO PRN (15:58)
[2024-10-31] MEDS: ROSUVASTATIN CA 5 MG TABLET PO SCH (22:10)
[2024-10-31] MEDS: SENNOSIDES/DOCUSATE COMBO (SENNA PLUS) TABLET (UD) PO PRN (23:08)
[2024-11-01 08:07] LABS: BASO % 0.6 % (0-2.0); EOS % 0.8 % (0-4.5); HEMATOCRIT 39.6 % (32.4-45.2); HEMOGLOBIN 13.1 GM/dL (10.7-15.3); MCH 30.2 pg (25.7-33.7); MCHC 33.1 g/dl (32.0-36.0); MEAN CELL VOLUME 91.4 fl (80-96); MEAN PLT VOLUME 8.6 fl (7.5-11.1); MONO % 8.5 % (3.8-10.2); NEUT % 66.1 % (42.8-82.8); PLATELET COUNT 267 10^3/uL (134-434); RBC 4.33 M/mm3 (3.60-5.2); RDW 14.2 % (11.6-15.6); WHITE BLOOD COUNT 7.5 K/mm3 (4.0-10.0)
[2024-11-01 08:24] LABS: POTASSIUM 3.8 mmol/L (3.5-5.1)
[2024-11-01 08:31] LABS: CALCIUM 9.4 mg/dL (8.5-10.1)
[2024-11-01 08:32] LABS: ALBUMIN 3.2 g/dl (3.4-5.0); MAGNESIUM 1.9 mg/dL (1.8-2.4)
[2024-11-01 08:35] LABS: CREATININE 0.9 mg/dL (0.55-1.3); PHOSPHOROUS 3.7 mg/dL (2.5-4.9)
[2024-11-01 08:36] LABS: BILIRUBIN,TOTAL 0.5 mg/dL (0.2-1)
[2024-11-01 08:37] LABS: TOT PROT 7.2 g/dl (6.4-8.2)
[2024-11-01 12:44] VITALS: BP 114/73; PULSE 76; RESP 16; TEMP 97.9
== END 2024-11-01 12:03 | disposition home or self-care (01) | DRG 638 ==
LOC: JER 14:40 → JERBED 18:24 → OBSVTOIN 10-31 00:11 → J7W 10-31 01:47
PROVIDERS: ADMIT Internal Medicine
DX: E11.621 Type 2 diabetes mellitus with foot ulcer (principal); L97.912 Non-pressure chronic ulcer of unspecified part of right lower leg with fat layer exposed; L97.919 Non-pressure chronic ulcer of unspecified part of right lower leg with unspecified severity; Z68.42 Body mass index [BMI] 45.0-49.9, adult; E66.01 Morbid (severe) obesity due to excess calories; I89.0 Lymphedema, not elsewhere classified
CPT/HCPCS: 36415; 80053; 80061; 82043; 82103; 82272; 82378; 82390; 82570; 82728; 82962; 82977; 83036; 83516; 83540; 83550; 83735; 84100; 84439; 84443; 84479; 85025; 85027; 85651; 86038; 86140; 86301; 86304; 86803; 87070; 87186; 87205; 87389; 93005; 93010; 97597; 99285-25; G0378